=== PATIENT | female | born 1970 | race African-American/Black ===

== ENCOUNTER 2021-05-30 10:48 | Outpatient (REF) | payer MEDICAID, SELFPAY ==
--- NOTE | ~2021-05-30 | XR_ITS ---
EXAMINATION: XR SHOULDER, RIGHT CLINICAL INFORMATION: Pain COMPARISON: Previous x-ray January 2019 TECHNIQUE: AP external rotation, Grashey, scapular Y, and axillary views of the right shoulder. FINDINGS: Bone alignment is normal. No fracture or dislocation is seen. The glenohumeral joint is normal. There is mild arthritis at the acromioclavicular joint with small osteophytes. There are degenerative changes of the greater tuberosity and small adjacent soft tissue calcifications suggestive of calcific tendinitis. XR/XR shoulder RT min 2V IMPRESSION: Mild osteoarthritis at the acromioclavicular joint and soft tissue calcifications adjacent to the greater humeral tuberosity suggestive of calcific tendinitis.
== END 2021-05-30 10:49 | disposition home or self-care (01) ==
LOC: HO.XRAY 10:48
PROVIDERS: PCP Registered Nurse Community Health; Visit Provider Registered Nurse Community Health
DX: M25.511 Pain in right shoulder (principal)
CPT/HCPCS: 73030

== ENCOUNTER 2021-06-18 15:15 | Outpatient (REF) | payer MEDICAID, SELFPAY ==
[2021-06-19 08:48] LABS: CT PCR NOT DETECTED (Not Detect.); NG PCR NOT DETECTED (Not Detect.)
[2021-06-21 17:43] LABS: HPV mRNA E6/E7 rflx Not Detected (Not Detected)
== END 2021-06-18 15:16 | disposition home or self-care (01) ==
LOC: HO.LAB 15:15
PROVIDERS: PCP Registered Nurse Community Health; Visit Provider Obstetrics & Gynecology
DX: Z01.411 Encounter for gynecological examination (general) (routine) with abnormal findings (principal); Z11.3 Encounter for screening for infections with a predominantly sexual mode of transmission; Z11.51 Encounter for screening for human papillomavirus (HPV); R10.2 Pelvic and perineal pain
CPT/HCPCS: 87491; 87591; 87624; 88142; 99212

== ENCOUNTER 2021-06-27 12:35 | Outpatient (REF) | payer MEDICAID, SELFPAY ==
--- NOTE | ~2021-06-27 | MM_ITS ---
EXAMINATION: MM SCREENING DIGITAL BREAST TOMOSYNTHESIS, BILATERAL CLINICAL INFORMATION: Screening. Asymptomatic. The lifetime risk of breast cancer based on the Tyrer-Cuzick Model is 5%. COMPARISON: Mammography: 02/16/2019 (new baseline) TECHNIQUE: Digital breast tomosynthesis is performed in both the craniocaudal and mediolateral oblique views along with computer-aided detection (CAD). Synthesized 2D images are generated from the tomosynthesis. FINDINGS: There are scattered areas of fibroglandular density (ACR BI-RADS breast composition Category b). There are no significant masses, abnormal calcifications, or other abnormalities. Scattered fibroglandular densities are stable. The axilla and skin contours are unremarkable. No significant changes. MM/MM tomosynthesis screening BI IMPRESSION: No mammographic evidence of malignancy. ASSESSMENT: BI-RADS 2: Benign RECOMMENDATION: Routine annual mammography screening. This patient's information was entered into a reminder system with a target due date for their next mammogram.
== END 2021-06-27 12:36 | disposition home or self-care (01) ==
LOC: HO.MAMMO 12:35
PROVIDERS: Visit Provider Registered Nurse Community Health
DX: Z12.31 Encounter for screening mammogram for malignant neoplasm of breast (principal)
CPT/HCPCS: 77063; 77067

== ENCOUNTER → 2021-07-03 12:17 | Outpatient (BNVA) | payer MEDICAID, SELFPAY | PROVIDERS: PCP Registered Nurse Community Health; Referring Provider Registered Nurse Community Health; Visit Provider Nurse Practitioner | DX: Z12.11 Encounter for screening for malignant neoplasm of colon (principal); J45.909 Unspecified asthma, uncomplicated; G47.33 Obstructive sleep apnea (adult) (pediatric); Z83.71 Family history of colonic polyps | CPT/HCPCS: 36415; 80053; 85025; 99202 ==

== ENCOUNTER 2021-07-03 13:49 | Outpatient (REF) | payer MEDICAID, SELFPAY ==
[2021-07-03 14:05] LABS: MANUAL DIFF FLAG NO
[2021-07-03 14:32] LABS: Basophils Absolute Auto 0.1 X10*3/uL (0.0-0.2); Basophils Percent Auto 0.9 % (0-2); Eosinophils Absolute Auto 0.1 X10*3/uL (0.0-0.4); Eosinophils Percent Auto 1.1 % (0-4); Hemoglobin 15.4 g/dl (12.0-16.0); Imm Gran Abs Auto 0.03 X10*3/uL (0.00-0.03); Imm Gran Pct Auto 0.3 % (0.0-0.4); Lymphocytes Absolute Auto 2.5 X10*3/uL (1.2-4.9); Lymphocytes Percent Auto 26.4 % (20-40); Mean Corpuscular HGB Conc 33.5 g/dl (31.0-35.0); Mean Corpuscular Hemoglobin 28.2 pg (27.0-33.0); Mean Corpuscular Volume 84.2 fL (80-98); Mean Platelet Volume 9.6 fL (9.4-12.3); Monocytes Absolute Auto 0.6 X10*3/uL (0.1-1.2); Monocytes Percent Auto 6.2 % (2-11); Neutrophils Absolute Auto 6.1 X10*3/uL (2.0-8.3); Neutrophils Percent Auto 65.1 % (45-73); Platelet Count 322 X10*3/uL (160-400); Red Blood Count 5.46 X10*6/uL (4.20-5.50); Red Cell Distribution Width 16.7 % (11.0-16.0); White Blood Count 9.4 X10*3/uL (4.8-10.8)
[2021-07-03 14:56] LABS: Alanine Aminotransferase 8 U/L (0-31); Albumin Level 4.6 g/dL (3.5-5.0); Alkaline Phosphatase 77 U/L (39-117); Anion Gap 15 (12-20); Aspartate Amino Transferase 13 U/L (5-31); Bilirubin Total 0.4 mg/dL (0.0-1.0); Blood Urea Nitrogen 10 mg/dL (9-16); Calcium 9.3 mg/dL (8.4-10.2); Carbon Dioxide 27 mmol/L (22-29); Chloride 105 mmol/L (96-108); Estimated Glomerular Filt Rate > 60; Glucose Random 86 mg/dL (60-115); Sodium 142 mmol/L (135-145); Total Protein 7.5 g/dL (6.5-8.0)
== END 2021-07-03 13:50 | disposition home or self-care (01) ==
LOC: HO.LAB 13:49
PROVIDERS: PCP Registered Nurse Community Health; Visit Provider Nurse Practitioner
DX: Z12.11 Encounter for screening for malignant neoplasm of colon (principal)
CPT/HCPCS: 36415; 80053; 85025

== ENCOUNTER 2021-07-04 15:34 | Outpatient (REF) | payer MEDICAID, SELFPAY ==
--- NOTE | ~2021-07-04 | US_ITS ---
EXAMINATION: US PELVIS CLINICAL INFORMATION: Pelvic and perineal pain. COMPARISON: Previous ultrasound 12/29/2019 TECHNIQUE: Ultrasound of the pelvis is performed using both transabdominal and transvaginal transducers along with Doppler. Transvaginal imaging is performed due to inadequate visualization transabdominally. The transvaginal exam is limited due to position of the uterus and ovaries. FINDINGS: Uterus: The uterus is anteverted, retroflexed and measures 12.6 x 4.8 x 5.0 cm. The uterus is homogeneous in echotexture. There is a hypoechoic lesion in the right body of uterus measuring 3.9 x 3.7 x 2.9 cm, likely fibroid. Previously it measured 5.4 x 4.6 x 5.0 cm. The double wall endometrial thickness is not visualized. There are small anechoic cysts seen in the cervix. Adnexa: Both ovaries are visualized. There is normal color flow to the adnexa. There is no ovarian torsion. There is no pelvic ascites or fluid collection. Right ovary measures 2.6 x 1.5 x 2.7 cm and volume 5.5 mL. The ovary appears unremarkable. Previously right ovary measured 2.7 x 1.2 x 2.2 cm. Left ovary measures 2.6 x 1.6 x 3.2 and volume 7.0 mL. The ovary appears unremarkable. Previously it measured 2.5 x 1.3 x 2.6 cm. US/US pelvic and transvaginal IMPRESSION: Unremarkable ovaries. Small nabothian cysts in the cervix. Solitary uterine fibroid, slightly smaller than previous study.
== END 2021-07-04 15:35 | disposition home or self-care (01) ==
LOC: HO.US 15:34
PROVIDERS: PCP Registered Nurse Community Health; Visit Provider Obstetrics & Gynecology
DX: R10.2 Pelvic and perineal pain (principal)
CPT/HCPCS: 76830; 76856

== ENCOUNTER 2021-07-25 13:00 | Outpatient (RCR) | payer MEDICAID, SELFPAY | END 2021-07-25 16:14 | disposition home or self-care (01) | LOC: HO.PTCHIC 13:00 | PROVIDERS: PCP Registered Nurse Community Health; Visit Provider Registered Nurse Community Health | DX: M79.672 Pain in left foot (principal) | CPT/HCPCS: 97110; 97140; 97150; 97162 ==

== ENCOUNTER 2021-09-10 08:08 | Day surgery (SDC) | payer MEDICAID, SELFPAY ==
[2021-09-04 14:05] VITALS: BMI 34.7
--- NOTE | 2021-09-07 09:08 | HO.ANESPROP2 ---
Documented by User: Keyanna Booth NP 09/07/21 09:09 HPI - Anesthesia Eval Consult details Narrative: 51yo F for Colonoscopy PMFSH Active Problems Active Problems: All Active Problems (Updated 09/04/21 @ 14:04 by Moni Robin RN) Well woman exam (Acute) Pelvic pain (Acute) Colon cancer screening (Acute) CATHERINE (obstructive sleep apnea) (Acute) Migraines (Acute) Family history of polyps in the colon (Acute) Pre-diabetes (Acute) GERD (gastroesophageal reflux disease) (Acute) Peripheral neuropathy (Acute) Primary fibromyalgia syndrome (Acute) Peripheral vascular disease (Acute) Depression with anxiety (Acute) Asthma (Acute) Past Medical History Medical History (Updated 09/10/21 @ 08:34 by Tiffanie Fernandez RN) Asthma Fibromyalgia Foot fracture GERD (gastroesophageal reflux disease) Hypothyroidism Migraine Pre-diabetes Sleep apnea Family History Family History (Updated 07/03/21 @ 12:59 by Anisha Stock CMA) Mother Hypothyroidism HTN (hypertension) Diabetes Father Esophagus cancer Brother Asthma Surgical History Surgical History H/O shoulder surgery H/O umbilical hernia repair Hx of section Social History Social History (Updated 07/03/21 @ 13:00 by Anisha Stock CMA) Household Members: Family Housing: Apartment Alcohol intake: never Patient Tobacco Use Status: Current someday Tobacco user Tobacco use type: Cigarette Cigarettes Per Day: 20 Years Smoked: 25 Advance Directives: No (unknown) Advance Directives Information Provided: Yes Advance Directives on File: No Meds Allergies Allergy/AdvReac Type Severity Reaction Status Date / Time No Known Allergies Allergy Verified 07/03/21 12:56 [No Known Allergies*] Home Medications Medication Instructions Recorded Confirmed Last Taken Type albuterol sulfate 90 mcg/actuation 2 puff PO Q4-6H PRN 06/18/21 Unknown History aerosol inhaler (ProAir HFA) duloxetine 60 mg capsule,delayed 60 mg PO DAILY 06/18/21 Unknown History release fluticasone propionate 110 1 puff PO BID 06/18/21 Unknown History mcg/actuation HFA aerosol inhaler (Flovent HFA) gabapentin 600 mg tablet 600 mg PO DAILY 06/18/21 Unknown History ibuprofen 800 mg tablet 800 mg PO TID 06/18/21 Unknown History levothyroxine 88 mcg tablet 88 mcg PO DAILY 06/18/21 Unknown History naproxen 500 mg tablet 500 mg PO BID PRN 06/18/21 Unknown History nicotine (polacrilex) 2 mg gum mg PO 06/18/21 Unknown History omeprazole 20 mg capsule,delayed 20 mg PO DAILY 06/18/21 Unknown History release topiramate 25 mg tablet 25 mg PO DAILY 06/18/21 Unknown History Exam Exam Date and Time: September 07, 2021 0908 Height,Weight and Vital Signs: Height 5 ft 2 in Weight 86.183 kg Pertinent Lab Results Pertinent Lab Results: Laboratory Tests 07/03/21 07/03/21 14:03 14:03 WBC 9.4 Hgb 15.4 Hct 46.0 Plt Count 322 Sodium 142 Potassium 5.0 Chloride 105 Carbon Dioxide 27 BUN 10 Creatinine 0.90 Assessment and Plan Assessment Anesthesia Assessment: Chart Reviewed Documented by User: Maxine Craig MD 09/10/21 09:13 [facility] Past Medical History Medical History (Updated 09/10/21 @ 08:34 by Tiffanie Fernandez RN) Asthma Fibromyalgia Foot fracture GERD (gastroesophageal reflux disease) Hypothyroidism Migraine Pre-diabetes Sleep apnea Family History Family History (Updated 07/03/21 @ 12:59 by Anisha Stock CMA) Mother Hypothyroidism HTN (hypertension) Diabetes Father Esophagus cancer Brother Asthma Family history of problems with anesthesia: No Surgical History Surgical History H/O shoulder surgery H/O umbilical hernia repair Hx of section History of Problems with Anesthesia: No Social History Social History (Updated 07/03/21 @ 13:00 by Anisha Stock CMA) Household Members: Family Housing: Apartment Alcohol intake: never Patient Tobacco Use Status: Current someday Tobacco user Tobacco use type: Cigarette Cigarettes Per Day: 20 Years Smoked: 25 Advance Directives: No (unknown) Advance Directives Information Provided: Yes Advance Directives on File: No Meds Allergies Allergy/AdvReac Type Severity Reaction Status Date / Time No Known Allergies Allergy Verified 07/03/21 12:56 [No Known Allergies*] Home Medications Medication Instructions Recorded Confirmed Last Taken Type albuterol sulfate 90 mcg/actuation 2 puff PO Q4-6H PRN 06/18/21 Unknown History aerosol inhaler (ProAir HFA) duloxetine 60 mg capsule,delayed 60 mg PO DAILY 06/18/21 Unknown History release fluticasone propionate 110 1 puff PO BID 06/18/21 Unknown History mcg/actuation HFA aerosol inhaler (Flovent HFA) gabapentin 600 mg tablet 600 mg PO DAILY 06/18/21 Unknown History ibuprofen 800 mg tablet 800 mg PO TID 06/18/21 Unknown History levothyroxine 88 mcg tablet 88 mcg PO DAILY 06/18/21 Unknown History naproxen 500 mg tablet 500 mg PO BID PRN 06/18/21 Unknown History nicotine (polacrilex) 2 mg gum mg PO 06/18/21 Unknown History omeprazole 20 mg capsule,delayed 20 mg PO DAILY 06/18/21 Unknown History release topiramate 25 mg tablet 25 mg PO DAILY 06/18/21 Unknown History Exam Airway Mallampati Class: II (Missing multiple teeth on bottom) TM Dist: >3cm Neck ROM: Full Denture: Upper Heart: rrr Lungs: cta Assessment and Plan Assessment Anesthesia Assessment: Anesthesia Plan Discussed and Chart Reviewed Final Anesthetic Review Family History of Problems with Anesthesia: No History of Problems with Anesthesia: No NPO: Yes ASA Class: III Final Preanesthetic Review: No Changes in Pt Med Stat, Meds/Allgs Chart Reviewed and Consent Obtained/Reviewed Patient Risk: Intermediate Procedure Risk: Intermediate Anesthetic Plan Anesthetic Plan: MAC: Disposition: Standard PACU
[2021-09-10 08:58] VITALS: BP 113/61; PULSE 70; RESP 16; TEMP 37.3; O2SAT 97
--- NOTE | 2021-09-10 09:05 | P.HPSUR_ITS ---
Pre-Procedural Eval Section A Date of Service: 09/10/21 Section B Chief Complaint: hx of Colon Polyps, Screening Details of Present Illness: FH of colon polyps in mother Relevant Family History (Specify if Yes): Yes Relevant Social History: Tobacco Use Present Medications: see Short Stay Collaborative assessment Medical History: Significant History (Asthma Foot fracture GERD (ga stroesophageal reflux disease) Hypothyroidism Migraine Pre-diabetes Sleep apnea) History of Previous Operations: Relevant previous surgery/procedure and date(s) (H/O shoulder surgery H/O umbilical hernia repair Hx of section) Allergies: Allergies Allergy/AdvReac Type Severity Reaction Status Date / Time No Known Allergies Allergy Verified 07/03/21 12:56 [No Known Allergies*] Review of Systems Sugical H&P ROS: Negative: Constitution, Cardiovascular, Respiratory, Neurological, Psychiatric, Hem-Onc, Allergic/Immunologic, Gastrointestinal, Genitourinary, Musculoskeletal, Integumentary, Endocrine and Eyes/Ears/Nose/Throat Exam Surgical H&P Exam: Normal: HEENT, Normal: Heart, Normal: Lungs, Normal: Extremities, Normal: Abdomen, Normal: Skin and Normal: Neurological Plan Diagnosis/Plan: Unchanged I have reviewed the history and physical and performed a pertinent physical examination on my patient. No changes have occurred unless specified.
[2021-09-10] MEDS: Lactated Ringers 1,000 ML 100 ML IVCONT (09:10)
--- NOTE | 2021-09-10 09:15 | PM.OP ---
Brief Operative Note Date of Service: 09/10/21 Pre-op diagnosis: colonoscopy screening Post-op diagnosis: same Procedure: see op note Surgeon: Justin Bartlett MD Anesthesia: MAC Was an [employer] used for this Procedure?: No Estimated blood loss (mL): 0 Condition: stable Disposition: PACU
--- NOTE | 2021-09-10 09:16 | W.PM.OPN ---
Operative Note Operative Note Date of Service: 09/10/21 Narrative: Operative Information Procedure Description: Colonoscopy COLONOSCOPY Instrument: Olympus variable stiffness pediatric scope 190L Colonoscopy Monitoring: Vital signs and clinical assessment, continuous EKG monitoring, Pulse oximetry, Carbon Dioxide monitoring and blood pressure monitoring were done throughout the procedure. Colon withdrawal time was 15 minutes. Procedure: The patient was placed in the left lateral decubitis position and pre-procedure medications were administered. After a digital rectal examination of the ano-rectum, the video colonoscope was inserted into the rectum and advanced through the colon to the cecum/TI. The colonoscope was slowly withdrawn in a retrograde panoramic fashion and the colon mucosa was carefully examined including a retroflexed view of the rectum. Findings and interventions are described below. Procedure Difficulty:moderate due to looping Findings: Terminal Ileum-unable to deeply intubate due to looping, superficially looked normal Cecum:normal Ascending Colon: normal Transverse Colon -normal Descending Colon:normal Sigmoid Colon: normal Rectum: Retroflexion with small internal hemorrhoids, grade I, x 3 sessile polpys 7-9 mm removed with forceps Anorectum - normal Colon preparation: Graham Bowel Preparation Scale Right colon; 2 Transverse colon: 3 Left colon; 2 (0 = Unprepared colon segment with mucosa not seen due to solid stool that cannot be cleared. 1 = Portion of mucosa of the colon segment seen, but other areas of the colon segment not well seen due to staining, residual stool and/or opaque liquid. 2 = Minor amount of residual staining, small fragments of stool and/or opaque liquid, but mucosa of colon segment seen well. 3 = Entire mucosa of colon segment seen well with no residual staining, small fragments of stool or opaque liquid) Impression and Post Procedure Diagnosis: polyps internal hemorrhoids Plan: High fiber diet leaflet Avoid straining at stool, epsom salts and sitz bath, anusol supps or cream Repeat Colonoscopy in 5 years due to polyps and FH of polyps or earlier if clinically indicated Above findings were reviewed with the patient and relevant handouts were provided if indicated.
[2021-09-10 09:51] VITALS: BP 89/60; PULSE 75; RESP 16; TEMP 36.6; O2SAT 96
[2021-09-10 10:08] VITALS: BP 107/82; PULSE 63; RESP 18; TEMP 36.6; O2SAT 98
== END 2021-09-10 10:22 | disposition home or self-care (01) ==
PROVIDERS: PCP Registered Nurse Community Health; Visit Provider Internal Medicine Gastroenterology
PROC: 0DJD8ZZ Inspection of Lower Intestinal Tract, Via Natural or Artificial Opening Endoscopic (ICD-10-PCS; CPT 45378; principal; 2021-09-10 09:20)
DX: Z12.11 Encounter for screening for malignant neoplasm of colon (principal); Z83.71 Family history of colonic polyps; K62.1 Rectal polyp; K64.0 First degree hemorrhoids; K59.04 Chronic idiopathic constipation; K21.9 Gastro-esophageal reflux disease without esophagitis; G47.33 Obstructive sleep apnea (adult) (pediatric); R73.03 Prediabetes; E03.9 Hypothyroidism, unspecified; M79.7 Fibromyalgia; J45.909 Unspecified asthma, uncomplicated; Z88.8 Allergy status to other drugs, medicaments and biological substances; F17.210 Nicotine dependence, cigarettes, uncomplicated
CPT/HCPCS: 45380; 88305

== ENCOUNTER → 2021-10-11 11:44 | Outpatient (BNVA) | payer MEDICAID, SELFPAY | PROVIDERS: PCP Registered Nurse Community Health; Referring Provider Registered Nurse Community Health; Visit Provider Nurse Practitioner | DX: Z12.11 Encounter for screening for malignant neoplasm of colon (principal) | CPT/HCPCS: 99212 ==

== ENCOUNTER 2022-03-28 15:00 | Outpatient (RCR) | payer MEDICAID, SELFPAY | END 2022-03-28 15:48 | disposition home or self-care (01) | LOC: HO.PTCHIC 15:00 | PROVIDERS: PCP Registered Nurse Community Health; Visit Provider Nurse Practitioner Family | DX: M54.16 Radiculopathy, lumbar region (principal) | CPT/HCPCS: 97110; 97140; 97161 ==

== ENCOUNTER 2022-07-10 14:32 | Outpatient (REF) | payer MEDICAID, SELFPAY ==
--- NOTE | ~2022-07-10 | MM_ITS ---
EXAMINATION: MM SCREENING DIGITAL BREAST TOMOSYNTHESIS, BILATERAL CLINICAL INFORMATION: Screening. Asymptomatic. The lifetime risk of breast cancer based on the Tyrer-Cuzick Model is 7%. COMPARISON: Mammography: 06/27/2021, 02/16/2019 (new baseline) TECHNIQUE: Digital breast tomosynthesis is performed in both the craniocaudal and mediolateral oblique views along with computer-aided detection (CAD). Synthesized 2D images are generated from the tomosynthesis. Additional left CC view is provided. FINDINGS: There are scattered areas of fibroglandular density (ACR BI-RADS breast composition Category b). There are no significant masses, abnormal calcifications, or other abnormalities. Parenchymal pattern is similar to prior studies. There is no developing density or architectural abnormality. The axilla and skin contours are unremarkable. No significant changes. MM/MM tomosynthesis screening BI IMPRESSION: No mammographic evidence of malignancy. ASSESSMENT: BI-RADS 2: Benign RECOMMENDATION: Routine annual mammography screening. This patient's information was entered into a reminder system with a target due date for their next mammogram.
== END 2022-07-10 14:33 | disposition home or self-care (01) ==
LOC: HO.MAMMO 14:32
PROVIDERS: PCP Registered Nurse; Visit Provider Registered Nurse
DX: Z12.31 Encounter for screening mammogram for malignant neoplasm of breast (principal)
CPT/HCPCS: 77063; 77067

== ENCOUNTER 2022-09-04 15:29 | Outpatient (REF) | payer MEDICAID, SELFPAY ==
[2022-09-05 06:34] LABS: CT PCR NOT DETECTED (Not Detect.); NG PCR NOT DETECTED (Not Detect.)
[2022-09-05 09:35] LABS: BV Int Neg Control Negative (Negative); BV Int Pos Control Positive (Positive)
== END 2022-09-04 15:30 | disposition home or self-care (01) ==
LOC: HO.LNP 15:29
PROVIDERS: Visit Provider Advanced Practice Midwife
DX: Z01.419 Encounter for gynecological examination (general) (routine) without abnormal findings (principal); R10.2 Pelvic and perineal pain; Z86.018 Personal history of other benign neoplasm
CPT/HCPCS: 87480; 87491; 87510; 87591; 87660

== ENCOUNTER 2022-10-04 12:39 | Outpatient (REF) | payer MEDICAID, SELFPAY ==
--- NOTE | ~2022-10-04 | US_ITS ---
EXAMINATION: US PELVIS CLINICAL INFORMATION: Pelvic and perineal pain. Last menstrual period 5 years ago. COMPARISON: 07/04/2021 TECHNIQUE: Ultrasound of the pelvis is performed using both transabdominal and transvaginal transducers along with Doppler. Transvaginal imaging is performed due to inadequate visualization transabdominally. FINDINGS: The uterus measures 14.0 x 4.6 x 6.0 cm. Posterior 3.9 x 4.4 x 4.6 cm fibroid previously measured 3.9 x 3.7 x 3.9 cm. The endometrium is not visualized due to the large fibroid. Multiple nabothian cysts identified in the cervix. The fibroid and bilateral ovaries were better visualized on transabdominal images. No significant free fluid. Right ovary measures 2.8 x 1.9 x 2.0 cm, volume 5.6 mL. Left ovary measures 3.2 x 1.7 x 2.3 cm, volume 6.5 mL. Bilateral ovaries are grossly unremarkable. US/US pelvic and transvaginal IMPRESSION: 1. Posterior 3.9 cm uterine fibroid. 2. Endometrium not visualized due to fibroid. 3. Unremarkable bilateral ovaries. 4. Nabothian cysts identified in the cervix.
== END 2022-10-04 12:40 | disposition home or self-care (01) ==
LOC: HO.US 12:39
PROVIDERS: PCP Registered Nurse; Visit Provider Advanced Practice Midwife
DX: R10.2 Pelvic and perineal pain (principal); Z86.018 Personal history of other benign neoplasm
CPT/HCPCS: 76830; 76856

== ENCOUNTER → 2022-10-15 12:57 | Outpatient (BNVA) | payer MEDICAID, SELFPAY | PROVIDERS: PCP Registered Nurse; Visit Provider Nurse Practitioner Family | DX: M48.062 Spinal stenosis, lumbar region with neurogenic claudication (principal); M47.26 Other spondylosis with radiculopathy, lumbar region; G62.9 Polyneuropathy, unspecified; M79.7 Fibromyalgia; M62.838 Other muscle spasm; G56.03 Carpal tunnel syndrome, bilateral upper limbs; M79.641 Pain in right hand; M79.642 Pain in left hand | CPT/HCPCS: 99202 ==

== ENCOUNTER → 2022-11-05 12:35 | Outpatient (BNVA) | payer MEDICAID, SELFPAY | PROVIDERS: PCP Registered Nurse; Visit Provider Orthopaedic Surgery | DX: R20.0 Anesthesia of skin (principal); R20.2 Paresthesia of skin; M79.7 Fibromyalgia; G62.9 Polyneuropathy, unspecified; R73.03 Prediabetes | CPT/HCPCS: 99202 ==

== ENCOUNTER 2022-11-06 06:03 | Outpatient (REF) | payer MEDICAID, SELFPAY ==
--- NOTE | ~2022-11-06 | FL_ITS ---
EXAMINATION: XR FLUOROSCOPY WITH IMAGES CLINICAL INFORMATION: Radiculopathy, lumbar region. COMPARISON: None. TECHNIQUE: Fluoroscopy Supervised By: Dr. Jg Hager. Fluoroscopy Time: 0.1 minutes. Cumulative Dose: 8.31 mGy. DAP: 0.967 Gycm2. Images: 2. FINDINGS: Two images demonstrate needle overlying the dorsal aspect of the L4-L5 level. FL/FL guidance in treatment room IMPRESSION: Intraoperative fluoroscopy for pain management procedure.
== END 2022-11-06 06:04 | disposition home or self-care (01) ==
LOC: CF 06:03
PROVIDERS: Visit Provider Internal Medicine
DX: M54.16 Radiculopathy, lumbar region (principal)
CPT/HCPCS: 62323; J1040; Q9965

== ENCOUNTER → 2022-11-28 11:01 | Outpatient (BNVA) | payer MEDICAID, SELFPAY | PROVIDERS: PCP Registered Nurse; Visit Provider Advanced Practice Midwife | DX: D25.9 Leiomyoma of uterus, unspecified (principal); N95.1 Menopausal and female climacteric states | CPT/HCPCS: 99212 ==

== ENCOUNTER → 2022-12-05 09:46 | Outpatient (BNVA) | payer MEDICAID, SELFPAY | PROVIDERS: PCP Registered Nurse; Visit Provider Nurse Practitioner Family | DX: M51.36 Other intervertebral disc degeneration, lumbar region (principal); M47.26 Other spondylosis with radiculopathy, lumbar region; M79.7 Fibromyalgia; M62.838 Other muscle spasm | CPT/HCPCS: 99212 ==

== ENCOUNTER 2022-12-27 14:00 | Outpatient (RCR) | payer MEDICARE, MEDICAID, SELFPAY | END 2023-01-06 08:27 | disposition home or self-care (01) | LOC: HO.PTCHIC 14:00 | PROVIDERS: PCP Registered Nurse; Visit Provider Registered Nurse | DX: M54.41 Lumbago with sciatica, right side (principal); M54.9 Dorsalgia, unspecified | CPT/HCPCS: 97110; 97161 ==

== ENCOUNTER 2023-01-10 10:11 | Outpatient (REF) | payer MEDICARE, MEDICAID, SELFPAY | END 2023-01-10 10:12 | disposition home or self-care (01) | LOC: HO.LAB 10:11 | PROVIDERS: Visit Provider Advanced Practice Midwife | DX: Z13.89 Encounter for screening for other disorder (principal) | CPT/HCPCS: 36415; 83001 ==

== ENCOUNTER 2023-01-22 13:00 | Outpatient (REF) | payer MEDICARE, MEDICAID, SELFPAY ==
--- NOTE | 2023-01-22 09:30 | EMG_ITS ---
Please see scanned EMG / Nerve Conduction Report. MTDD
== END 2023-01-22 13:01 | disposition home or self-care (01) ==
LOC: HO.NEURO 13:00
PROVIDERS: PCP Registered Nurse; Visit Provider Orthopaedic Surgery
DX: R20.0 Anesthesia of skin (principal); R20.2 Paresthesia of skin
CPT/HCPCS: 95885; 95913

== ENCOUNTER → 2023-03-07 09:39 | Outpatient (BNVA) | payer MEDICARE, MEDICAID, SELFPAY | PROVIDERS: PCP Registered Nurse; Visit Provider Internal Medicine | DX: M54.16 Radiculopathy, lumbar region (principal) | CPT/HCPCS: 99212 ==

== ENCOUNTER → 2023-03-19 12:36 | Outpatient (BNVA) | payer MEDICARE, MEDICAID, SELFPAY | PROVIDERS: PCP Registered Nurse; Visit Provider Orthopaedic Surgery | DX: R20.0 Anesthesia of skin (principal); R20.2 Paresthesia of skin; M79.641 Pain in right hand; M79.642 Pain in left hand | CPT/HCPCS: 99202 ==

== ENCOUNTER → 2023-04-29 13:36 | Outpatient (BNVA) | payer MEDICARE, MEDICAID, SELFPAY | PROVIDERS: PCP Registered Nurse; Referring Provider Internal Medicine; Visit Provider Physician Assistant ==

== ENCOUNTER 2023-08-04 12:40 | Outpatient (REF) | payer OTHER, SELFPAY ==
[2023-08-04 14:10] LABS: Rheumatoid Factor < 13.0 IU/mL (<15.0)
[2023-08-04 14:13] LABS: C Reactive Protein 0.55 mg/dL (< or = 0.50)
[2023-08-04 14:24] LABS: Erythrocyte Sedimentation Rate 14 MM/HR (0-20)
[2023-08-10 14:53] LABS: Anti Nuclear Antibody Screen POSITIVE (NEGATIVE)
== END 2023-08-04 12:41 | disposition home or self-care (01) ==
LOC: HO.HHCL 12:40
PROVIDERS: Visit Provider Registered Nurse
DX: M25.50 Pain in unspecified joint (principal)
CPT/HCPCS: 36415; 85652; 86038; 86039; 86140; 86431

== ENCOUNTER 2023-09-08 12:51 | Outpatient (AMB) | payer MEDICARE, MEDICAID, SELFPAY ==
--- NOTE | 2023-09-08 12:52 | A.OFFVIS_ITS ---
Intake Vital Signs 09/08/23 12:54 Height 5 ft 2 in Weight 214 lb 1.102 oz BMI 39.1 BP 110/84 Blood Pressure Location Rt brachial Position Sitting Pulse 81 Pulse Source Pulse Oximeter Intake Visit Reasons: Positive REBECCA Intake Note: New patient externally referred presents today for +REBECCA. Previously seen a senior security architect in [place]. Puller Over Required: Yes Puller Over Language: Consumer Product Advisor Name: Sathya [id number] Information Interpreted: non-clinical & clinical Accompanied by: Self / Same As Patient Allergies tizanidine Allergy (Intermediate, Verified 09/08/23 13:02) Swelling HPI HPI Comments History of Present Illness Details Mrs. Mendoza, 53-year-old female referred by her PCP, presents today for evaluation of polyarthralgia and positive REBECCA. She has a history of hypothyroid, Pre diabetes, fibromyalgia and is a smoker with chronic low back pain. The patient reports that she has pain all over her body especially to back and knees for many years. Her the most significant area of pain is her lower back for which she is seeing Pain Management and receives injections. This has affected her walking and has caused her to fall. Per patient she was followed by rheumatology in [place] who gave her of splint for her bilateral wrist due to carpal tunnel and was also told that she had osteoarthritis in her joint. She reports that she takes gabapentin and diclofenac potassium with partial relief. She has since had Bilateral CTS. PRIOR VISITs with pain management : Past Procedures: 11/06/22: Left L4-L5 parasagittal interl aminar LANIE-30% pain relief Patient is a pleasant 52 year old [place] speaking female with a history of fibromyalgia and peripheral neuropathy present today with lower back pain and with pain all over her body. Reports chronic back pain for 15 years that has been worsening for the past 4 months. Denies any recent trauma, injury or falls. Lower back pain presents as axial but also radiates to the left lower extremity laterally and posteriorly with numbness and tingling in both feet and both hands. The pain is constant and is described as pinching, cramping, crushing, dull, sore, hurting, aching, heavy, tiring, exhausting, sharp, cutting, lacerating, hot burning, scalding, searing, tingling, stinging, tight, squeezing and tearing. Pain interferes with her daily activities, walking, standing, sitting, sleeping or social activities. Reports left lower extremity weakness and increased left leg pain with walking or bending forward. Denies previous spine surgery but has tried injections and those were without effect. Patient completed physical therapy in January 2022 without improvement in her symptoms. Lumbar spine MRI on 01/03/22 reviewed and are noted for moderate stenosis and left neuroforaminal narrowing at L4-L5 with ligament hypertrophy and mild Modic 2 endplate changes at L4-L5. Patient has been taking gabapentin and diclofenac potassium with partial relief. Reports swelling reaction with tizanidine. Patient denies any fever, chills, weight changes, dizziness, visual disturbances, bowel or bladder incontinence, or saddle anesthesia. Patient requests Hand specialist for bilateral carpal tunnel syndrome, right worse than left and has previously managed her bilateral hand pain with NSAIDs, OT/PT, and wrist immobilizers 5 years ago in [place]. She also reports bilateral reconstructive shoulder surgery and has residual neck pain and shoulder pain. Patient reports difficulty with opening or handling jars. [facility] Medical History (Updated 09/08/23 @ 13:26 by AMISHA Guerrier) Elevated sed rate REBECCA positive Pain in joint involving multiple sites Neuropathy, peripheral Fibromyalgia Migraine Pre-diabetes Sleep apnea GERD (gastroesophageal reflux disease) Foot fracture Asthma Hypothyroidism Surgical History H/O umbilical hernia repair H/O shoulder surgery Hx of section Family History Mother Hypothyroidism HTN (hypertension) Diabetes Father Esophagus cancer Brother Asthma Social History Household Members: Family Housing: Apartment Alcohol intake: never Patient Tobacco Use Status: Current someday Tobacco user Tobacco use type: Cigarette Cigarettes Per Day: 20 Years Smoked: 25 Current occupational status: disabled Current occupation: rt hand Female Reproductive History Menstrual Age of Menarche: 8 Review of Systems Const All systems reviewed & are unremarkable except as noted in HPI and below Physical Exam Vital Signs: Last Vital Signs Pulse 81 09/08/23 12:54 BP 110/84 09/08/23 12:54 BMI result Body Mass Index 39.1 APPEARANCE: Patient in no acute distress, groomed nourished obese EYES no redness, pupils equal and reactive to light, eyelids normal EARS:? External ear normal, canal clear and tympanic membrane normal. NOSE/SINUS:? Airflow through both nares, no nasal discharge, no bleeding Mouth/THROAT:? Oral mucosa moist, no ulcerations. Poor dentition NECK:? No thyromegaly or masses, no adenopathy, trachea midline. HEART:? Regular rhythm, S1-S2 heard, no murmurs, rubs or gallops. LUNG:? Clear to percussion and auscultation ABD:? Large abdomen. Normal bowel sounds, no organomegaly, masses or tenderness. EXTREMITIES:? No edema, no calf tenderness, normal peripheral pulses. NEURO:? Oriented and alert x3.? No focal weakness.? Reflexes symmetric.? SKIN:? There are no skin lesions evident. No objective signs of Raynaud's phenomenon. JOINT EXAM: Cervical Spine:.? Full range of motion without pain; no tenderness. Thoracic Spine:.? No scoliosis.? No tenderness on palpation. Lumbar Spine:.? Alignment normal.? Full range of motion without pain. tenderness. Chest Wall:.? No tenderness, swelling, increased warmth or erythema. Hands:.? Normal pain-free range of motion without tenderness, swelling, increased warmth or erythema. Able to make a full fist and has a good millwright helper str ength. Wrists:.? Normal pain-free range of motion without tenderness, swelling, increased warmth or erythema. -negative tinnels and phalens Elbows:. Normal pain-free range of motion without tenderness, swelling, increased warmth or erythema. Shoulders:.?? Full range of motion without pain. No tenderness, weakness, swelling, increased warmth or erythema. Hip bursa:.?Mild tenderness. Knees:.?? Normal pain-free range of motion with mild tenderness to medial joint line, but no swelling, increased warmth or erythema.? There is no effusion or crepitation Ankles:.? Normal pain-free range of motion without tenderness, swelling, increased warmth or erythema. Feet:.? Normal pain-free range of motion without tenderness, swelling, increased warmth or erythema. Tender points:? No tenderness to digital palpation at the occiput, trapezius, second rib, lateral epicondyle, knees, greater trochanter and gluteal area bilat eralacyy. Results Reviewed Results Reviewed: 05/30/21EXAMINATION: XR SHOULDER, RIGHT CLINICAL INFORMATION: Pain COMPARISON: Previous x-ray January 2019 TECHNIQUE: AP external rotation, Grashey, scapular Y, and axillary views of the right shoulder. FINDINGS: Bone alignment is normal. No fracture or dislocation is seen. The glenohumeral joint is normal. There is mild arthritis at the acromioclavicular joint with small osteophytes. There are degenerative changes of the greater tuberosity and small adjacent soft tissue calcifications suggestive of calcific tendinitis. XR/XR shoulder RT min 2V IMPRESSION: Mild osteoarthritis at the acromioclavicular joint and soft tissue calcifications adjacent to the greater humeral tuberosity suggestive of calcific tendinitis. Assessment & Plan Assessment & Plan (1) REBECCA positive: Code(s): R76.8 - Other specified abnormal immunological findings in serum (2) Pain in joint involving multiple sites: Code(s): M25.50 - Pain in unspecified joint (3) Lumbar back pain with radiculopathy affecting left lower extremity: Code(s): M54.16 - Radiculopathy, lumbar region (4) Shoulder pain, bilateral: Code(s): M25.511 - Pain in right shoulder; M25.512 - Pain in left shoulder Qualifiers: Chronicity: chronic Qualified Code(s): M25.511 - Pain in right shoulder; M25.512 - Pain in left shoulder; G89.29 - Other chronic pain Plan #+REBECCA/Joint Pain:Miss Mendoza is a 53-year-old female here for evaluation of joint pain with positive REBECCA. After careful initial review of patient's medical records, diagnostics and a physical examination I do not think there is an underlying autoimmune or inflammatory disease process to her joint pain. Admittedly she has a positive REBECCA 1:80 but all extractable antigens are negative. In addition patient denies relevant features of an inflammatory arthritis and non in observed on PE. She denies erythematous, warm, swollen joints, (see HPI). She reports that she was being seen by senior security architect in [place] for osteoarthritis and fibromyalgia. She can continue on medications as prescribed by her PCP for these conditions - Cymbalta, naproxen, Voltaren gel, Robaxin and gabapentin. Will evaluate further with labs and Xrays. Patient complains of hand pain could be onset of OA. #Lumbar Pain: MRI 12/2021 shows Disc herniation and Stenosis. She is being seen by Pain Management and has received injections to lower back 11/2022. #Shoulder Pain: According to Past imaging, there is moderate calcific tendinitis to shoulders. She will be seeing Ortho for injections per patient. Orders: Orders Anti Extractable Nuclear Ag 09/08/23 M25.50 - Pain in unspecified joint, R70.0 - Elevated erythrocyte sedimentation rate, R76.8 - Other specified abnormal immunological findings in serum Sjogren's Antibodies 09/08/23 M25.50 - Pain in unspecified joint, R70.0 - Elevated erythrocyte sedimentation rate, R76.8 - Other specified abnormal immunological findings in serum Complete Blood Count Auto Diff 09/08/23 M25.50 - Pain in unspecified joint, R70.0 - Elevated erythrocyte sedimentation rate, R76.8 - Other specified abnormal immunological findings in serum Comprehensive Met. Panel 09/08/23 M25.50 - Pain in unspecified joint, R70.0 - Elevated erythrocyte sedimentation rate, R76.8 - Other specified abnormal immunological findings in serum XR hand LT min 3V 09/08/23 M25.50 - Pain in unspecified joint, R70.0 - Elevated erythrocyte sedimentation rate, R76.8 - Other specified abnormal immunological findings in serum XR hand RT min 3V 09/08/23 M25.50 - Pain in unspecified joint, R70.0 - Elevated erythrocyte sedimentation rate, R76.8 - Other specified abnormal immunological findings in serum Erythrocyte Sedimentation Rate 09/08/23 M25.50 - Pain in unspecified joint, R70.0 - Elevated erythrocyte sedimentation rate, R76.8 - Other specified abnormal immunological findings in serum C Reactive Protein 09/08/23 M25.50 - Pain in unspecified joint, R70.0 - Elevated erythrocyte sedimentation rate, R76.8 - Other specified abnormal immunological findings in serum Uric Acid 09/08/23 M25.50 - Pain in unspecified joint, R70.0 - Elevated erythrocyte sedimentation rate, R76.8 - Other specified abnormal immunological findings in serum HLA B27 09/08/23 M25.50 - Pain in unspecified joint, R70.0 - Elevated erythrocyte sedimentation rate, R76.8 - Other specified abnormal immunological findings in serum Coding Level of Care Code Est Pt Level 4 (34246) Diagnoses REBECCA positive R76.8 Pain in joint involving multiple sites M25.50 Lumbar back pain with radiculopathy affecting left lower extremity M54.16 Chronic pain of both shoulders M25.511; M25.512; G89.29 Chronicity: chronic
[2023-09-08 12:54] VITALS: BP 110/84; PULSE 81; BMI 39.1
== END 2023-09-08 13:35 | disposition home or self-care (01) ==
PROVIDERS: PCP Registered Nurse; Visit Provider Nurse Practitioner Family
DX: R76.8 Other specified abnormal immunological findings in serum (principal); M25.50 Pain in unspecified joint; M54.16 Radiculopathy, lumbar region; M25.511 Pain in right shoulder; M25.512 Pain in left shoulder; G89.29 Other chronic pain
CPT/HCPCS: 99214

== ENCOUNTER 2023-09-08 12:51 | Outpatient (REF) | payer OTHER, SELFPAY ==
--- NOTE | ~2023-09-08 | XR_ITS ---
EXAMINATION: XR HAND, RIGHT CLINICAL INFORMATION: Pain in unspecified joint COMPARISON: Same-day left hand TECHNIQUE: PA, lateral, and oblique views of the right hand. FINDINGS: The bones are intact. No fracture. Negative ulnar variance is noted. Joint spaces are maintained. No erosions or soft tissue calcifications. XR/XR hand RT min 3V IMPRESSION: No acute bony abnormality.
--- NOTE | ~2023-09-08 | XR_ITS ---
EXAMINATION: XR HAND, LEFT CLINICAL INFORMATION: Pain in unspecified joint COMPARISON: Same-day right hip TECHNIQUE: PA, lateral, and oblique views of the left hand. FINDINGS: The bones are intact. No fracture. Negative ulnar variance is noted. Joint spaces are maintained. No erosions or soft tissue calcifications. XR/XR hand LT min 3V IMPRESSION: No acute bony abnormality.
[2023-09-08 14:00] LABS: MANUAL DIFF FLAG NO
[2023-09-08 14:29] LABS: Basophils Absolute Auto 0.1 X10*3/uL (0.0-0.2); Basophils Percent Auto 0.9 % (0-2); Eosinophils Absolute Auto 0.2 X10*3/uL (0.0-0.4); Eosinophils Percent Auto 2.1 % (0-4); Hematocrit 44.6 % (37.0-47.0); Imm Gran Abs Auto 0.03 X10*3/uL (0.00-0.03); Imm Gran Pct Auto 0.4 % (0.0-0.4); Lymphocytes Absolute Auto 1.9 X10*3/uL (1.2-4.9); Mean Corpuscular HGB Conc 33.6 g/dl (31.0-35.0); Mean Corpuscular Hemoglobin 27.7 pg (27.0-33.0); Mean Corpuscular Volume 82.3 fL (80.0-98.0); Mean Platelet Volume 10.8 fL (9.4-12.3); Monocytes Absolute Auto 0.7 X10*3/uL (0.1-1.2); Monocytes Percent Auto 8.1 % (2-11); Neutrophils Absolute Auto 5.3 x10*3/uL (2.0-8.3); Neutrophils Percent Auto 65.5 % (45-73); Platelet Count 287 X10*3/uL (160-400); Red Blood Count 5.42 X10*6/uL (4.20-5.50); Red Cell Distribution Width 16.1 % (11.0-16.0); White Blood Count 8.1 X10*3/uL (4.8-10.8)
[2023-09-08 15:06] LABS: Alanine Aminotransferase 15 U/L (0-31); Albumin Level 4.2 g/dL (3.5-5.0); Alkaline Phosphatase 74 U/L (39-117); Anion Gap 11 (12-20); Aspartate Amino Transferase 18 U/L (5-31); Bilirubin Total 0.5 mg/dL (0.0-1.0); Blood Urea Nitrogen 10 mg/dL (9-16); C Reactive Protein 0.73 mg/dL (< or = 0.50); Calcium 8.9 mg/dL (8.4-10.2); Carbon Dioxide 25 mmol/L (22-29); Chloride 105 mmol/L (96-108); Estimated Glomerular Filt Rate > 60; Glucose Random 102 mg/dL (60-115); Potassium 4.2 mmol/L (3.3-5.1); Sodium 137 mmol/L (135-145); Total Protein 7.5 g/dL (6.5-8.0); Uric Acid 5.7 mg/dL (2.4-5.7)
[2023-09-08 15:10] LABS: Erythrocyte Sedimentation Rate 14 MM/HR (0-20)
[2023-09-09 18:35] LABS: Antibody to SS-A Antigen <1.0 NEG AI (<1.0 NEG); Antibody to SS-B Antigen <1.0 NEG AI (<1.0 NEG); SM/Ribonucleoprotein Ab <1.0 NEG AI (<1.0 NEG); Smith Protein <1.0 NEG AI (<1.0 NEG)
[2023-09-11 23:13] LABS: HLA B27 Negative (Negative)
== END 2023-09-08 12:52 | disposition home or self-care (01) ==
LOC: HO.LAB 12:51
PROVIDERS: PCP Registered Nurse; Visit Provider Nurse Practitioner Family
DX: R70.0 Elevated erythrocyte sedimentation rate (principal); R76.8 Other specified abnormal immunological findings in serum; M25.50 Pain in unspecified joint; M54.16 Radiculopathy, lumbar region; M25.511 Pain in right shoulder; M25.512 Pain in left shoulder; G89.29 Other chronic pain
CPT/HCPCS: 36415; 73130; 80053; 84550; 85025; 85652; 86140; 86235; 86812; 99212

== ENCOUNTER 2023-10-15 14:47 | Outpatient (AMB) | payer OTHER, MEDICAID, SELFPAY ==
[2023-10-15 14:49] VITALS: BP 120/82; PULSE 97; TEMP 36.1; O2SAT 99; BMI 40.0
--- NOTE | 2023-10-15 14:49 | MHC.OFFVIS ---
Intake Vital Signs 10/15/23 14:49 Height 5 ft 2 in Weight 218 lb 11.177 oz BMI 40.0 BP 120/82 Blood Pressure Location Rt brachial Position Sitting Pulse 97 Pulse Source Pulse Oximeter Temp 97 F Temp Source Skin Pulse Oximetry (%) 99 Oxygen Delivery Method Room Air Intake Visit Reasons: Positive REBECCA Intake Note: Patient last seen 09/08/23, presents today for follow up and test results. Supervisor Fitting Required: Yes Supervisor Fitting Language: Credit Card Analyst Name: Lulu Washington Information Interpreted: clinical only Accompanied by: Self / Same As Patient Allergies tizanidine Allergy (Intermediate, Verified 10/15/23 14:52) Swelling HPI HPI Comments History of Present Illness Details Mrs. Mendoza, 53-year-old female referred by her PCP is here follow-up of initial evaluation of polyarthralgia and positive REBECCA. She continues with a history of hypothyroid, Pre diabetes, fibromyalgia and is a smoker with chronic low back pain. The patient reports that she has pain all over her body especially to back and knees for many years. Her the most significant area of pain is her lower back for which she is seeing Pain Management and receives injections. This has affected her walking and has caused her to fall. Per patient she was followed by rheumatology in [place] who gave her of splint for her bilateral wrist due to carpal tunnel and was also told that she had osteoarthritis in her joint. She reports that she takes gabapentin and diclofenac potassium with partial relief. She has not had Bilateral CTS since. Patient states she is to have back surgery but the pain management has not sent the MRI to the surgeon nor has she heard from pain management. PRIOR VISITs with pain management : Past Procedures: 11/06/22: Left L4-L5 parasagittal interlaminar LANIE-30% pain relief Patient is a pleasant 52 year old [place]ian speaking female with a history of fibromyalgia and peripheral neuropathy present today with lower back pain and with pain all over her body. Reports chronic back pain for 15 years that has been worsening for the past 4 months. Denies any recent trauma, injury or falls. Lower back pain presents as axial but also radiates to the left lower extremity laterally and posteriorly with numbness and tingling in both feet and both hands. The pain is constant and is described as pinching, cramping, crushing, dull, sore, hurting, aching, heavy, tiring, exhausting, sharp, cutting, lacerating, hot burning, scalding, searing, tingling, stinging, tight, squeezing and tearing. Pain interferes with her daily activities, walking, standing, sitting, sleeping or social activities. Reports left lower extremity weakness and increased left leg pain with walking or bending forward. Denies previous spine surgery but has tried injections and those were without effect. Patient completed physical therapy in January 2022 without improvement in her symptoms. Lumbar spine MRI on 01/03/22 reviewed and are noted for moderate stenosis and left neuroforaminal narrowing at L4-L5 with ligament hypertrophy and mild Modic 2 endplate changes at L4-L5. Patient has been taking gabapentin and diclofenac potassium with partial relief. Reports swelling reaction with tizanidine. Patient denies any fever, chills, weight changes, dizziness, visual disturbances, bowel or bladder incontinence, or saddle anesthesia. Patient requests Hand specialist for bilateral carpal tunnel syndrome, right worse than left and has previously managed her bilateral hand pain with NSAIDs, OT/PT, and wrist immobilizers 5 years ago in [place]. She also reports bilateral reconstructive shoulder surgery and has residual neck pain and shoulder pain. Patient reports difficulty with opening or handling jars. [facility] Medical History (Updated 09/08/23 @ 13:26 by SHAYLA Guerrier) Elevated sed rate REBECCA positive Pain in joint involving multiple sites Neuropathy, peripheral Fibromyalgia Migraine Pre-diabetes Sleep apnea GERD (gastroesophageal reflux disease) Foot fracture Asthma Hypothyroidism Surgical History H/O umbilical hernia repair H/O shoulder surgery Hx of section Family History Mother Hypothyroidism HTN (hypertension) Diabetes Father Esophagus cancer Brother Asthma Social History Household Members: Family Housing: Apartment Alcohol intake: never Patient Tobacco Use Status: Current someday Tobacco user Tobacco use type: Cigarette Cigarettes Per Day: 20 Years Smoked: 25 Current occupational status: disabled Current occupation: rt hand Female Reproductive History Menstrual Age of Menarche: 8 Review of Systems Const All systems reviewed & are unremarkable except as noted in HPI and below Physical Exam Vital Signs: BMI result Body Mass Index 40.0 APPEARANCE: Patient in no acute distress, groomed nourished obese EYES no redness, pupils equal and reactive to light, eyelids normal EARS:? External ear normal, canal clear and tympanic membrane normal. NOSE/SINUS:? Airflow through both nares, no nasal discharge, no bleeding Mouth/THROAT:? Oral mucosa moist, no ulcerations. Poor dentition NECK:? No thyromegaly or masses, no adenopathy, trachea midline. HEART:? Regular rhythm, S1-S2 heard, no murmurs, rubs or gallops. LUNG:? Clear to percussion and auscultation ABD:? Large abdomen. Normal bowel sounds, no organomegaly, masses or tenderness. EXTREMITIES:? No edema, no calf tenderness, normal peripheral pulses. NEURO:? Oriented and alert x3.? No focal weakness.? Reflexes symmetric.? SKIN:? There are no skin lesions evident. No objective signs of Raynaud's phenomenon. JOINT EXAM: Cervical Spine:.? Full range of motion without pain; no tenderness. Thoracic Spine:.? No scoliosis.? No tenderness on palpation. Lumbar Spine:.? Alignment normal.? Full range of motion without pain. tenderness. Chest Wall:.? No tenderness, swelling, increased warmth or erythema. Hands:.? Normal pain-free range of motion without tenderness, swelling, increased warmth or erythema. Able to make a full fist and has a good industrial services worker strength. Wrists:.? Normal pain-free range of motion without tenderness, swelling, increased warmth or erythema. -negative tinnels and phalens Elbows:. Normal pain-free range of motion without tenderness, swelling, increased warmth or erythema. Shoulders:.?? Full range of motion without pain. No tenderness, weakness, swelling, increased warmth or erythema. Hip bursa:.?Mild tenderness. Knees:.?? Normal pain-free range of motion with mild tenderness to medial joint line, but no swelling, increased warmth or erythema.? There is no effusion or crepitation Ankles:.? Normal pain-free range of motion without tenderness, swelling, increased warmth or erythema. Feet:.? Normal pain-free range of motion without tenderness, swelling, increased warmth or erythema. Tender points:? No tenderness to digital palpation at the occiput, trapezius, second rib, lateral epicondyle, knees, greater trochanter and gluteal area bilaterally. Assessment & Plan Assessment & Plan (1) REBECCA positive: Code(s): R76.8 - Other specified abnormal immunological findings in serum (2) Pain in joint involving multiple sites: Code(s): M25.50 - Pain in unspecified joint (3) Lumbar back pain with radiculopathy affecting left lower extremity: Code(s): M54.16 - Radiculopathy, lumbar region (4) Shoulder pain, bilateral: Code(s): M25.511 - Pain in right shoulder; M25.512 - Pain in left shoulder Qualifiers: Chronicity: chronic Qualified Code(s): M25.511 - Pain in right shoulder; M25.512 - Pain in left shoulder; G89.29 - Other chronic pain Plan #+REBECCA/Joint Pain:Miss Mendoza is a 53-year-old female here for evaluation of joint pain with positive REBECCA. I have reviewed labs and xrays with the patient. Serology and hand Xray was unrevealing. I continue to think there is no underlying autoimmune or inflammatory disease process to her joint pain. Admittedly she has a positive REBECCA 1:80 but all extractable antigens are negative. In addition patient denies relevant features of an inflammatory arthritis and non is observed on PE. She denies erythematous, warm, swollen joints, (see HPI). She reports that she was being seen by photolith operator in [place] for osteoarthritis and fibromyalgia. She can continue on medications as prescribed by her PCP for this condition - Cymbalta, Gabapentinm naproxen, Voltaren gel, Robaxin and gabapentin. She desires a sleep aid. I refer to the cymbalta dosage which she says was prescribed to help her sleep, However she said it is no longer effective. I encourage that she discusses this with primary care for an alternative. #Lumbar Pain: MRI 12/2021 shows Disc herniation and Stenosis. She is being seen by Pain Management and has received injections to lower back 11/2022. Patient is interested in doing back surgery but needs to do some additional follow-up to move the process along. I discussed with patient that she has to call pain management to have the MRI sent, Perhaps she needs to sign a record release form. #Shoulder Pain: According to Past imaging, there is moderate calcific tendinitis to shoulders. She did get an injection from Ortho since last visit. She states it was mild relief. Given that she does not have an underlying CTD or inflammatory Rheumatic process, she is being followed by pain management and Ortho, I do not think we need a scheduled followup. Should the patient develop signs and symptoms of inflammation, red warm swollen joints, or signs of CTD, she can schedule an appointment to be evaluated. I spent 20 mins reviewing chart and diagnostics, evaluating patient and documenting Coding Level of Care Code Est Pt Level 3 (65729) Diagnoses REBECCA positive R76.8 Pain in joint involving multiple sites M25.50 Lumbar back pain with radiculopathy affecting left lower extremity M54.16 Chronic pain of both shoulders M25.511; M25.512; G89.29 Chronicity: chronic
== END 2023-10-15 15:33 | disposition home or self-care (01) ==
PROVIDERS: PCP Registered Nurse; Visit Provider Nurse Practitioner Family
DX: R76.8 Other specified abnormal immunological findings in serum (principal); M25.50 Pain in unspecified joint; M54.16 Radiculopathy, lumbar region; M25.511 Pain in right shoulder; M25.512 Pain in left shoulder; G89.29 Other chronic pain
CPT/HCPCS: 99213

== ENCOUNTER → 2023-10-15 14:47 | Outpatient (BNVA) | payer OTHER, MEDICAID, SELFPAY | PROVIDERS: PCP Registered Nurse; Visit Provider Nurse Practitioner Family | DX: R76.8 Other specified abnormal immunological findings in serum (principal); G89.29 Other chronic pain; M25.511 Pain in right shoulder; M25.512 Pain in left shoulder; M54.16 Radiculopathy, lumbar region | CPT/HCPCS: 99212 ==

== ENCOUNTER 2024-06-17 13:29 | Emergency (ER) | payer OTHER, SELFPAY ==
--- NOTE | ~2024-06-17 | XR_ITS ---
EXAMINATION: XR KNEE, RIGHT CLINICAL INFORMATION: Right knee pain. COMPARISON: None available. TECHNIQUE: Four views of the right knee. FINDINGS: No fracture or joint effusion. Alignment is anatomic. Joint spaces are maintained. No abnormal soft tissue calcification. XR/XR knee RT 4V IMPRESSION: Normal right knee. Electronically signed by: Smith Vega MD 06/17/2024 04:54 PM EDT
--- NOTE | 2024-06-17 14:07 | ED_ITS ---
HPI - Extremity Injury (Lower) General Chief Complaint: Extremity Injury, Lower Stated Complaint: r knee pain Time Seen by Provider: 06/17/24 17:14 Source: patient Mode of arrival: ambulatory Limitations: no limitations History of Present Illness ED Provider: Daryl Colbert PA-C HPI Narrative: 53 yold female with the Fribosis, CATHERINE, fibromyaglia, and GERD presents to the ED for right knee pain. Patient states she jumped and when she landed she heard a pop lateral side of right knee. Patient denies any blunt trauma. Patient states pain on ambulation ever since incident. Patient has known history of meniscus tear in the same knee. Patient denies any other complaints. Patient denies any head or loss of consciousness. Related Data Home Medications ?Medication ?Instructions ?Recorded ?Confirmed albuterol sulfate 90 mcg/actuation 2 puff PO Q4-6H PRN wheezing 06/18/21 03/07/23 aerosol inhaler (ProAir HFA) duloxetine 60 mg capsule,delayed 60 mg PO DAILY 06/18/21 03/07/23 release fluticasone propionate 110 1 puff PO BID 06/18/21 03/07/23 mcg/actuation HFA aerosol inhaler (Flovent HFA) ibuprofen 800 mg tablet 800 mg PO TID 06/18/21 03/07/23 naproxen 500 mg tablet 500 mg PO BID PRN pain 06/18/21 03/07/23 omeprazole 20 mg capsule,delayed 20 mg PO DAILY 06/18/21 03/07/23 release topiramate 25 mg tablet 25 mg PO DAILY 06/18/21 03/07/23 hydroxyzine HCl 25 mg tablet 25 mg PO PRN 09/04/22 03/07/23 diclofenac potassium 50 mg tablet 50 mg PO BID moderate pain 10/15/22 03/07/23 levothyroxine 100 mcg tablet 100 mcg PO QAM 12/05/22 03/07/23 duloxetine 30 mg capsule,delayed 30 mg PO DAILY 03/07/23 03/07/23 release gabapentin 600 mg tablet 600 mg PO BID 10/15/23 Previous Rx's ?Medication ?Instructions ?Recorded bisacodyl 5 mg tablet,delayed 10 mg (2 x 5 mg) PO BEDTIME 2 days 07/03/21 release (Dulcolax (bisacodyl)) #4 tabs methocarbamol 750 mg tablet 750 mg PO BID PRN muscle spasm 30 12/05/22 days #60 tabs naproxen 500 mg tablet 500 mg PO BID PRN pain 7 days #14 06/17/24 tabs oxycodone 10 mg tablet 10 mg PO Q8H PRN pain 3 days #9 06/17/24 tabs Allergies Allergy/AdvReac Type Severity Reaction Status Date / Time tizanidine Allergy Intermediate Swelling Verified 06/17/24 14:08 Review of Systems 2 Review of Systems: knee pain Yes all other systems are reviewed and are negative [facility] Past Medical History Medical History (Updated 06/18/24 @ 00:01 by Haroon Diaz) Elevated sed rate REBECCA positive Pain in joint involving multiple sites Neuropathy, peripheral Fibromyalgia Migraine Pre-diabetes Sleep apnea GERD (gastroesophageal reflux disease) Foot fracture Asthma Hypothyroidism Surgical History H/O umbilical hernia repair H/O shoulder surgery Hx of section Family History Family History Mother Hypothyroidism HTN (hypertension) Diabetes Father Esophagus cancer Brother Asthma Social History Social History Household Members: Family Housing: Apartment Alcohol intake: never Patient Tobacco Use Status: Current someday Tobacco user Tobacco use type: Cigarette Cigarettes Per Day: 20 Years Smoked: 25 Advance Directives: No Advance Directives Information Provided: No Do you have a plan to hurt others: No Plan Current occupational status: disabled Current occupation: rt hand Physical Exam 2 Vital Signs: Vital Signs: Last Vital Signs Temp 98.2 F 06/17/24 18:46 Pulse 80 06/17/24 18:46 Resp 14 06/17/24 18:46 BP 130/70 06/17/24 18:46 Pulse Ox 98 06/17/24 18:46 O2 Del Method Room Air 06/17/24 18:46 BMI result Body Mass Index 30.7 Const: General: cooperative, healthy appearing, comfortable, no acute distress, well developed, alert, awake and Physically active O rientation/consciousness: patient oriented x3 HEENT: Head: Yes normal to inspection, Yes No palpable skull fracture present, Yes normocephalic and Yes atraumatic Eyes: General: appearance normal, both eyes and all related structures Neck: Neck: Yes normal visual inspection, Yes full ROM, Yes no lymphadenopathy, Yes no meningeal signs, Yes trachea midline, Yes supple, No anterior neck swelling and No tender Chest: Chest palpation & inspection: normal inspection of the chest and normal palpation of entire chest wall Resp: Effort & Inspection: normal respiratory effort and able to speak in complete sentences Auscultation: clear to auscultation bilaterally Cardio: Jugular venous distension: no JVD Heart sounds: S1 normal heart sound present and S2 normal heart sound present GI: Inspection: Yes normal to inspection Palpation (GI): Soft to palpation, not firm, nontender, no guarding and not rigid : General: Yes no CVA tenderness Back/Spine/Pelvis: Back: no CVA tenderness and No back tenderness Skin: General skin exam: no rashes or lesions noted, elasticity normal and turgor normal Neuro: General: patient oriented x3, gait normal, tone normal, moves all extremities, Normal light touch and pain sensation, no meningeal signs, no focal motor deficits and CN's II-XI intact bilaterally Extrem: General: Yes normal to inspection, Yes full ROM and Yes capillary refill normal Knee images: 1. positive for tenderness on palpation. negative for swelling, erythema, ecchymosis, stiffness, deformity, hotness, or coldness. rest of extremity normal. motor, neuro, and vascular exam is intact. Psych: Appearance: grossly normal, well kempt and not disheveled Course Course Course Narrative: This is a Rapid Medical Examination (RME) performed by Aristeo Jacome PA-C in triage. Full HPI, ROS, assessment and treatment plan per primary provider in the Main ED. 53 yo Ghanaian-speaking female with a history of obesity, CATHERINE, migraines, GERD, peripheral neuropathy, fibromyalgia, PVD, depression, anxiety, asthma who presents to the ER for evaluation of right knee pain s/p injury 2 days ago. she stepped hard and felt a crack. hx fall 2 months ago with right knee injury as well. it is swollen but she denies erythema or warmth to touch. taking naproxen, tylenol with no improvement. Plan: xr right knee Medications Administered Discontinued Medications Generic Name Dose Route Start Last Admin Trade Name Freq PRN Reason Stop Dose Admin Ketorolac Tromethamine 30 mg 06/17/24 18:01 06/17/24 18:19 Ketorolac Tromethamine 30 Mg/Ml Vial IM 06/17/24 18:02 30 mg ONCE ONE Administration Medical Decision Making Medical Decision Making MDM Narrative: 53 yold female with right knee pain after stompin hard and hearing a pop. Xray negative for fracture or disclocation. Physical exam negative for sigsn for septic knee, discloation, gout, DVT, arterial occlusion, or compartment syndrome. Patient informed for follow up with PCP for MRI. patient explained worrisome and inforemed to return to the ED immeidatley. Differential Diagnosis Differential Diagnoses: The differential diagnosis associated with the presentation includes (Knee sprain, disclocation, fracture) Admission/Observation Consideration of admission/observation: Escalation of care including admission/observation considered Independent Interpretation I performed an independent interpretation of an: Plain X-Ray Radiology Impression Discussion of test interpretation with radiology: I have reviewed the radiologist's reading. Independent Historian Clinical information obtained from an independent historian. History obtained from or confirmed by: Other (Patient) External Record Review External record reviewed: Other (prior vistis) Prescription Management I considered prescription management with: Pain Medication Discharge Plan Discharge Clinical Impression: Knee pain Patient Disposition: Home, Self-Care Instructions: Knee Pain (ED) Additional Instructions: Recommend follow-up with primary care provider. Most likely you will need an MRI to rule out any meniscus/ligament tear in her knee. Return to the ED immediately for any knee swelling, calf pain, coughing up blood, hotness, coldness, or any other concerning symptoms. XR/XR knee RT 4V IMPRESSION: Normal right knee. Electronically signed by: Smith Vega MD 06/17/2024 04:54 PM EDT Prescriptions: New oxycodone 10 mg tablet 10 mg PO Q8H PRN (Reason: pain) 3 Days Qty: 9 0RF Rx Instructions: Partial Fill upon patient request. naproxen 500 mg tablet 500 mg PO BID PRN (Reason: pain) 7 Days Qty: 14 0RF No Action bisacodyl [Dulcolax (bisacodyl)] 5 mg tablet,delayed release (DR/EC) 10 mg PO BEDTIME 2 Days Qty: 4 0RF duloxetine 60 mg capsule,delayed release(DR/EC) 60 mg PO DAILY naproxen 500 mg tablet 500 mg PO BID PRN (Reason: pain) Flovent HFA 110 mcg/actuation HFA aerosol inhaler 1 puff PO BID albuterol sulfate [ProAir HFA] 90 mcg/actuation HFA aerosol inhaler 2 puff PO Q4-6H PRN (Reason: wheezing) omeprazole 20 mg capsule,delayed release(DR/EC) 20 mg PO DAILY topiramate 25 mg tablet 25 mg PO DAILY ibuprofen 800 mg tablet 800 mg PO TID gabapentin 600 mg tablet 600 mg PO BID diclofenac potassium 50 mg tablet 50 mg PO BID levothyroxine 100 mcg tablet 100 mcg PO QAM methocarbamol 750 mg tablet 750 mg PO BID PRN (Reason: muscle spasm) 30 Days Qty: 60 1RF hydroxyzine HCl 25 mg tablet 25 mg PO PRN duloxetine 30 mg capsule,delayed release(DR/EC) 30 mg PO DAILY Stand Alone Forms: Work/School Release Interventions: ED Discharge Assessment Last Done: 06/17/24 18:46 Discharge Date/Time: 06/17/24 18:47 Print Language: Ghanaian
[2024-06-17 14:08] VITALS: BP 170/93; PULSE 76; RESP 16; TEMP 36.8; O2SAT 97; BMI 30.7
[2024-06-17] MEDS: Ketorolac Tromethamine 30 MG/ML VIAL IM (18:19)
[2024-06-17 18:46] VITALS: BP 130/70; PULSE 80; RESP 14; TEMP 36.8; O2SAT 98
== END 2024-06-17 18:47 | disposition home or self-care (01) ==
PROVIDERS: Emergency Provider Emergency Medicine; PCP Registered Nurse
DX: M25.561 Pain in right knee (principal)
CPT/HCPCS: 73564; 96372; 99283; 99284; J1885

== ENCOUNTER 2024-06-28 12:05 | Emergency (ER) | payer OTHER, SELFPAY ==
[2024-06-28 12:54] VITALS: BP 172/102; PULSE 110; RESP 18; TEMP 36.6; BMI 41.7
[2024-06-28 20:05] VITALS: BP 113/77; PULSE 95; RESP 16; TEMP 36.4; O2SAT 98
--- NOTE | 2024-06-29 00:07 | PC.NURSE ---
Dr. Carrington at bedside for evaluation.
--- NOTE | 2024-06-29 00:16 | ED_ITS ---
HPI - Back Pain/Injury General Chief Complaint: Back Pain/Injury Stated Complaint: Lower back pain Time Seen by Provider: 06/29/24 00:03 Source: patient Mode of arrival: ambulatory Limitations: no limitations History of Present Illness ED Provider: Dr. Geri Carrington HPI Narrative: Patient comes to the emergency room complaining of right lower back pain. Patient states that yesterday morning she woke up, was trying to roll around her bed to get up and felt a stretching sensation in her back. Patient states that she has history of sciatica/herniated disc. Patient states that she has had multiple MRIs in the past and is waiting to be seen by neurosurgery. Patient denies any numbness tingling in lower extremities or perianal area, denies urinary/fecal incontinence/retention. Patient states that the pain is localized. Related Data Home Medications ?Medication ?Instructions ?Recorded ?Confirmed albuterol sulfate 90 mcg/actuation 2 puff PO Q4-6H PRN wheezing 06/18/21 03/07/23 aerosol inhaler (ProAir HFA) duloxetine 60 mg capsule,delayed 60 mg PO DAILY 06/18/21 03/07/23 release fluticasone propionate 110 1 puff PO BID 06/18/21 03/07/23 mcg/actuation HFA aerosol inhaler (Flovent HFA) ibuprofen 800 mg tablet 800 mg PO TID 06/18/21 03/07/23 naproxen 500 mg tablet 500 mg PO BID PRN pain 06/18/21 03/07/23 omeprazole 20 mg capsule,delayed 20 mg PO DAILY 06/18/21 03/07/23 release topiramate 25 mg tablet 25 mg PO DAILY 06/18/21 03/07/23 hydroxyzine HCl 25 mg tablet 25 mg PO PRN 09/04/22 03/07/23 diclofenac potassium 50 mg tablet 50 mg PO BID moderate pain 10/15/22 03/07/23 levothyroxine 100 mcg tablet 100 mcg PO QAM 12/05/22 03/07/23 duloxetine 30 mg capsule,delayed 30 mg PO DAILY 03/07/23 03/07/23 release gabapentin 600 mg tablet 600 mg PO BID 10/15/23 Previous Rx's ?Medication ?Instructions ?Recorded bisacodyl 5 mg tablet,delayed 10 mg (2 x 5 mg) PO BEDTIME 2 days 07/03/21 release (Dulcolax (bisacodyl)) #4 tabs methocarbamol 750 mg tablet 750 mg PO BID PRN muscle spasm 30 12/05/22 days #60 tabs naproxen 500 mg tablet 500 mg PO BID PRN pain 7 days #14 06/17/24 tabs oxycodone 10 mg tablet 10 mg PO Q8H PRN pain 3 days #9 06/17/24 tabs Allergies Allergy/AdvReac Type Severity Reaction Status Date / Time tizanidine Allergy Intermediate Swelling Verified 06/28/24 13:03 Review of Systems Review of Systems: Constitutional : No Weight loss, No Fever, No Chills, No Night Sweats, No Fatigue, No Malaise ENT/Mouth : No Hearing loss, No Ear Pain, No Nasal Congestion, No Sinus Pain, No Hoarseness, No sore throat, No Rhinorrhea, No Swallowing Difficulty Eyes: No Eye Pain, No Swelling, No Redness, No Foreign Body, No Discharge, No Vision Changes Cardiovascular : No Chest Pain, No SOB, No Dyspnea on Exertion, No Orthopnea, No Edema, No Palpitations Respiratory : No Cough, No Sputum, No Wheezing, No Smoke Exposure, No Dyspnea Gastrointestinal : No Nausea, No Vomiting, No Diarrhea, No Constipation, No abdominal Pain, No Hematochezia, No Melena Genitourinary : no irregular bleeding, No Dysuria, No Urinary Frequency, No Hematuria, No Urinary Incontinence, No Urgency, No Flank Pain, No Urinary Flow Changes, No Hesitancy Musculoskeletal : Complaining of back pain in the right lower part of the back No Myalgias, No Joint Swelling Skin : No Skin Lesions, No rash Neuro : No Weakness, No Numbness, No Paresthesias, No Loss of Consciousness, No Dizziness, No Headache Psych : No Anxiety/Panic, No Depression, No SI/HI/AH/VH, No Social Issues, Heme/Lymph: No Bruising, No Bleeding,No Lymphadenopathy Endocrine : No Polyuria, No Polydipsia, No Temperature Intolerance [facility] Past Medical History Medical History Elevated sed rate REBECCA positive Pain in joint involving multiple sites Neuropathy, peripheral Fibromyalgia Migraine Pre-diabetes Sleep apnea GERD (gastroesophageal reflux disease) Foot fracture Asthma Hypothyroidism Surgical History H/O umbilical hernia repair H/O shoulder surgery Hx of section Family History Family History Mother Hypothyroidism HTN (hypertension) Diabetes Father Esophagus cancer Brother Asthma Social History Social History Household Members: Family Housing: Apartment Alcohol intake: never Patient Tobacco Use Status: Current someday Tobacco user Tobacco use type: Cigarette Cigarettes Per Day: 20 Years Smoked: 25 Advance Directives: No Advance Directives Information Provided: No Do you have a plan to hurt others: No Plan Current occupational status: disabled Current occupation: rt hand Physical Exam Vital Signs: Vital Signs: Last Vital Signs Temp 97.6 F 06/28/24 20:05 Pulse 95 06/28/24 20:05 Resp 16 06/28/24 20:05 BP 113/77 06/28/24 20:05 Pulse Ox 98 06/28/24 20:05 O2 Del Method Room Air 06/28/24 20:05 BMI result Body Mass Index 41.7 Const: Other: Appearance: Alert. Oriented X3. No acute distress. Eyes: Pupils equal, round and reactive to light. ENT: Pharynx normal. Neck: Normal inspection. Neck supple. No lymph nodes noted. No crepitus CVS: Normal heart rate and rhythm. Pulses normal. Normal S1 and S2 Respiratory: No respiratory distress. Breath sounds normal. No Wheezing. No rales Abdomen: Soft and nontender. No rigidity. No distention. Back: No pain to palpation over the cervical/thoracic/lumbar area. Pain to palpation over the paraspinal muscles on the right side. Skin: Skin warm and dry. Normal skin color. Normal skin turgor. Extremities: No lower extremity edema. No Lacerations. No Rash Neuro: Oriented X 3. No motor deficit. No sensory deficit. Moving all extremities. No slurred speech. CN 2 through 12 grossly intact Psych: calm, cooperative, normal affect Medical Decision Making Medical Decision Making MDM Narrative: I discussed the physical exam with the patient, patient having musculoskeletal pain versus sciatica versus herniated disc -patient does not have any signs of cauda equina. -patient giving a dose of IM ketorolac and Decadron. Patient will follow-up with her neurosurgeon. Differential Diagnosis Differential Diagnoses: The differential diagnosis associated with the p resentation includes (As above) Discharge Plan Discharge Clinical Impression: Musculoskeletal back pain Patient Disposition: Home, Self-Care Instructions: Back Pain (ED) Prescriptions: No Action oxycodone 10 mg tablet 10 mg PO Q8H PRN (Reason: pain) 3 Days Qty: 9 0RF Rx Instructions: Partial Fill upon patient request. naproxen 500 mg tablet 500 mg PO BID PRN (Reason: pain) 7 Days Qty: 14 0RF bisacodyl [Dulcolax (bisacodyl)] 5 mg tablet,delayed release (DR/EC) 10 mg PO BEDTIME 2 Days Qty: 4 0RF duloxetine 60 mg capsule,delayed release(DR/EC) 60 mg PO DAILY naproxen 500 mg tablet 500 mg PO BID PRN (Reason: pain) Flovent HFA 110 mcg/actuation HFA aerosol inhaler 1 puff PO BID albuterol sulfate [ProAir HFA] 90 mcg/actuation HFA aerosol inhaler 2 puff PO Q4-6H PRN (Reason: wheezing) omeprazole 20 mg capsule,delayed release(DR/EC) 20 mg PO DAILY topiramate 25 mg tablet 25 mg PO DAILY ibuprofen 800 mg tablet 800 mg PO TID gabapentin 600 mg tablet 600 mg PO BID diclofenac potassium 50 mg tablet 50 mg PO BID levothyroxine 100 mcg tablet 100 mcg PO QAM methocarbamol 750 mg tablet 750 mg PO BID PRN (Reason: muscle spasm) 30 Days Qty: 60 1RF hydroxyzine HCl 25 mg tablet 25 mg PO PRN duloxetine 30 mg capsule,delayed release(DR/EC) 30 mg PO DAILY Print Language: Swedish
[2024-06-29] MEDS: dexAMETHasone sod phosphate 4 MG/ML VIAL IM (00:30)
[2024-06-29] MEDS: Ketorolac Tromethamine 60 MG/2 ML VIAL IM (00:31)
[2024-06-29 00:38] VITALS: BP 113/77; PULSE 95; RESP 16; TEMP 36.4; O2SAT 98
== END 2024-06-29 00:39 | disposition home or self-care (01) ==
PROVIDERS: Emergency Provider Emergency Medicine; PCP Registered Nurse
DX: M79.18 Myalgia, other site (principal); M54.50 Low back pain, unspecified; F17.210 Nicotine dependence, cigarettes, uncomplicated
CPT/HCPCS: 96372; 99283; 99284; J1100; J1885

== ENCOUNTER 2025-02-28 14:04 | Outpatient (REF) | payer OTHER, SELFPAY ==
--- OUTSIDE RECORDS SUMMARY | 2025-02-28 15:21 | XMS_ITS | Encounter Summary ---
Author Organization [employer] Address [address] [place] [address] Care Team Providers Care Highway Administrative Engineer Name Role Phone Kyra Lopez CHAVO Primary Care Provider [phone] Encounter Details Date Type Department Care Team (Late st Contact Info) Description 06/23/2023 Orders Only [facility] [address] [place], [place] [phone] Kimberly To Social History Tobacco Use Types Packs/Day Years Used Date Smoking Tobacco: Every Day Cigarettes Smokeless Tobacco: Never Alcohol Use Standard Drinks/Week Comments Never 0 (1 standard drink = 0.6 oz pur e alcohol) Depression Answer Date Recorded Patient Health Questionnaire-9 Score 23 11/12/2022 Depression Answer Date Recorded Patient Health Questionnaire-2 Score 6 11/12/2022 Comments Unknown Sex and Gender Information Value Date Recorded Sex Assigned at Female 07/29/2022 10:35 AM EDT Legal Sex Female 10:35 AM EDT Gender Identity Female 07/29/2022 10:35 AM EDT Sexual Orientation Straight 07/29/2022 10 :35 AM EDT documented as of this encounter Plan of Treatment Upcoming Encounters Date Type Department Care Team (Late Contact Info) Description 06/02/2025 1:00 PM EDT Office Visit [facility] [address] [place], [place] [phone] Nandini Zelaya OD [address] [place] [address] 06/03/2025 1:45 PM EDT Office Visit [facility] [address] [place] [address] Kyra Lopez FNP [address] [place] [address] documented as of this encounter Procedures Procedure Name Priority Date/Time Associated Diagnosis Comments HM PAP/HPV Routine 06/18/2021 12:00 AM EDT documented in this encounter Results * Hm Pap Smear (06/18/2021 12:00 AM EDT) Historical Provider HEALTH MAINTENANCE Final Result documented in this encounter Visit Diagnoses Not on filedocumented in this encounter Additional Health Concerns Assessment Noted Time PHQ-9 Depression Total Score: 23 11/12/ 023 9:35 AM EST documented as of this encounter Care Teams Highway Administrative Engineer Relationship Specialty Start Date End Date Kyra Lopez FNP [address] [place] [id number] PCP - General Family Medicine 05/29/22 documented as of this encounter
[2025-02-28 17:36] LABS: MANUAL DIFF FLAG NO
[2025-02-28 17:53] LABS: Estimated Average Glucose 326 mg/dL
[2025-02-28 18:03] LABS: Alanine Aminotransferase 15 U/L (0-31); Albumin Level 4.2 g/dL (3.5-5.0); Alkaline Phosphatase 96 U/L (39-117); Anion Gap 13 (12-20); Aspartate Amino Transferase 20 U/L (5-31); Bilirubin Total 0.3 mg/dL (0.0-1.0); Blood Urea Nitrogen 4 mg/dL (9-16); Calcium 9.1 mg/dL (8.4-10.2); Carbon Dioxide 26 mmol/L (22-29); Chloride 108 mmol/L (96-108); Cholesterol 154 mg/dL (<200); Estimated Glomerular Filt Rate > 60; Glucose Random 73 mg/dL (60-115); HDL Cholesterol 46 mg/dL (>40); LDL Cholesterol Calculated 92 mg/dL (<100); Potassium 3.7 mmol/L (3.3-5.1); Sodium 143 mmol/L (135-145); Triglycerides 83 mg/dL (<150)
[2025-02-28 18:20] LABS: TSH reflex Free T4 0.95 uIU/mL (0.32-4.0); Vitamin D 25-OH Total 33.7 ng/mL (>30)
[2025-02-28 18:36] LABS: Basophils Absolute Auto 0.1 X10*3/uL (0.0-0.2); Eosinophils Absolute Auto 0.4 X10*3/uL (0.0-0.4); Eosinophils Percent Auto 4.6 % (0-4); Hematocrit 42.7 % (37.0-47.0); Hemoglobin 14.2 g/dl (12.0-16.0); Imm Gran Abs Auto 0.05 X10*3/uL (0.00-0.03); Imm Gran Pct Auto 0.6 % (0.0-0.4); Lymphocytes Absolute Auto 2.8 X10*3/uL (1.2-4.9); Lymphocytes Percent Auto 31.4 % (20-40); Mean Corpuscular HGB Conc 33.3 g/dl (31.0-35.0); Mean Corpuscular Hemoglobin 26.9 pg (27.0-33.0); Mean Corpuscular Volume 80.9 fL (80.0-98.0); Mean Platelet Volume 10.6 fL (9.4-12.3); Monocytes Absolute Auto 0.6 X10*3/uL (0.1-1.2); Monocytes Percent Auto 6.1 % (2-11); Neutrophils Percent Auto 56.3 % (45-73); Platelet Count 307 X10*3/uL (160-400); Red Blood Count 5.28 X10*6/uL (4.20-5.50); Red Cell Distribution Width 16.4 % (11.0-16.0)
[2025-03-01 08:30] LABS: HIV AB/AG Nonreactive (Nonreactive); HIV Num 1 0.05 S/CO (0.00-0.99)
[2025-03-01 09:33] LABS: RPR Rapid Plasma Reagin NON-REACTIVE (NON-REACTIVE)
[2025-03-01 11:12] LABS: CT PCR NOT DETECTED (Not Detect.); NG PCR NOT DETECTED (Not Detect.)
[2025-03-01 20:49] LABS: HCV Log PCR <1.18 NOT DETECTED Log IU/mL (NOT DETECTED); HepC Viral Load <15 NOT DETECTED IU/mL (NOT DETECTED)
== END 2025-02-28 14:05 | disposition home or self-care (01) ==
LOC: HO.CHCLDS 14:04
PROVIDERS: Visit Provider Registered Nurse
DX: Z00.00 Encounter for general adult medical examination without abnormal findings (principal); Z13.1 Encounter for screening for diabetes mellitus; Z13.6 Encounter for screening for cardiovascular disorders
CPT/HCPCS: 36415; 80053; 80061; 82306; 83036; 84443; 85025; 86592; 87389; 87491; 87522; 87591

== ENCOUNTER 2025-03-17 14:36 | Outpatient (AMB) | payer OTHER, SELFPAY ==
--- NOTE | 2025-03-17 14:38 | MHC.OFFVIS ---
Vital Signs 03/17/25 14:42 Height 5 ft 2 in Weight 198 lb 8 oz BMI 36.3 BP 120/76 Blood Pressure Location Rt brachial Position Sitting Pulse 97 Pulse Source Pulse Oximeter Pulse Oximetry (%) 99 Oxygen Delivery Method Room Air Intake Visit Reasons: FU low back pain BAM 03/07/23 Intake Note: Pain today 8/10 Administrator Pesticide Required: Yes Administrator Pesticide Language: Software Developer Intern Services: Administrator Pesticide Present Administrator Pesticide Name: Max Accompanied by: Self / Same As Patient Allergies tizanidine Allergy (Intermediate, Verified 03/17/25 14:42) Swelling HPI Comments Details: The patient is a 54-year-old female presenting with chronic low back pain. This has been a longstanding issue for over 16 years, and has been worsening over the past 4-6 months. Patient also has polyarthralgia, positive REBECCA, bilateral carpal tunnel syndrome, fibromyalgia with widespread body pain, chronic knee pain and is a smoker. She underwent Left L4-L5 parasagittal interlaminar LANIE back in 2022 with minimal relief and was referred to Neurosurgery for evaluation of a potential discectomy due to a large herniated disc at L4-L5 with ligament hypertrophy but did not proceed with surgery at that time. Patient reports she was told to update her lumbar spine MRI per [facility], however states imaging was not ordered. She complains of persistent back pain with radiating pain to the left buttock and lateral hip, and to both the legs, worse on the left side with pulling, numbness and tingling sensations. Patient previously underwent multiple courses of physical therapy, with minimal or no pain relief. She rates her pain 8/10, worse with walking, bending or lifting. Denies any fever, unintentional weight loss, abdominal or groin pain, bladder or bowel dysfunction, or saddle anesthesia. Reports left lower extremity weakness due to pain which causes her to fall occasionally. The patient has a history of diabetes mellitus, with a recent hemoglobin A1c level of 13, indicating poor glycemic control. She is currently on metformin and Lantus insulin for diabetes management. PRIOR: Patient presents today to assess response to Left L4-L5 parasagittal interlaminar LANIE on 11/06/[address] Hager. Patient reports 30% pain relief since procedure with mild improvement in her mobility, daily activities, sleep and social interactions. She continues to experience spinal-stenosis related pain with walking, prolonged sitting or standing, has difficulty changing her positions and reports increase in pain with cold weather changes. Patient also has significant pain with lumbar extension. We previously discussed to consider MILD procedure if minimal pain relief with LANIE injections. Unfortunately, we are still awaiting for lumbar spine MRI imaging from [facility] radiology. I will send another request today. Patient reports radicular pain is more bothersome than axial. She continues to loose weight with diet but notes that due to back pain, her mobility is limited. Denies any recent cough, cold, infection, fever, bladder of bowel incontinence, saddle anesthesia or other significant changes in medical history since last office visit. Past Procedures: 11/06/22: Left L4-L5 parasagittal interlaminar LANIE-30% pain relief PRIOR: Patient is a pleasant 52 year old Fijian speaking female with a history of fibromyalgia and peripheral neuropathy present today with lower back pain and with pain all over her body. Reports chronic back pain for 15 years that has been worsening for the past 4 months. Denies any recent trauma, injury or falls. Lower back pain presents as axial but also radiates to the left lower extremity laterally and posteriorly with numbness and tingling in both feet and both hands. The pain is constant and is described as pinching, cramping, crushing, dull, sore, hurting, aching, heavy, tiring, exhausting, sharp, cutting, lacerating, hot burning, scalding, searing, tingling, stinging, tight, squeezing and tearing. Pain interferes with her daily activities, walking, standing, sitting, sleeping or social activities. Reports left lower extremity weakness and increased left leg pain with walking or bending forward. Denies previous spine surgery but has tried injections and those were without effect. Patient completed physical therapy in January 2022 without improvement in her symptoms. Lumbar spine MRI on 01/03/22 reviewed and are noted for moderate stenosis and left neuroforaminal narrowing at L4-L5 with ligament hypertrophy and mild Modic 2 endplate changes at L4-L5. Patient has been taking gabapentin and diclofenac potassium with partial relief. Reports swelling reaction with tizanidine. Patient denies any fever, chills, weight changes, dizziness, visual disturbances, bowel or bladder incontinence, or saddle anesthesia. Patient requests Hand specialist for bilateral carpal tunnel syndrome, right worse than left and has previously managed her bilateral hand pain with NSAIDs, OT/PT, and wrist immobilizers 5 years ago in [place]. She also reports bilateral reconstructive shoulder surgery and has residual neck pain and shoulder pain. Patient reports difficulty with opening or handling jars. [facility] Medical History Elevated sed rate REBECCA positive Pain in joint involving multiple sites Neuropathy, peripheral Fibromyalgia Migraine Pre-diabetes Sleep apnea GERD (gastroesophageal reflux disease) Foot fracture Asthma Hypothyroidism Surgical History H/O umbilical hernia repair H/O shoulder surgery Hx of section Family History Mother Hypothyroidism HTN (hypertension) Diabetes Father Esophagus cancer Brother Asthma Social History Household Members: Family Housing: Apartment Alcohol intake: never Patient Tobacco Use Status: Current someday Tobacco user Tobacco use type: Cigarette Cigarettes Per Day: 20 Years Smoked: 25 Current occupational status: disabled Current occupation: rt hand Female Reproductive History Menstrual Age of Menarche: 8 Review of Systems Const All systems reviewed & are unremarkable except as noted in HPI and below Physical Exam Vital Signs: Last Vital Signs Pulse 97 03/17/25 14:42 BP 120/76 03/17/25 14:42 Pulse Ox 99 03/17/25 14:42 Oxygen Delivery Method Room Air 03/17/25 14:42 BMI result Body Mass Index 36.3 General: Appears afebrile. Alert and oriented. Mood and affect appropriate. Follows and participates in conversation appropriately. Respiratory effort is unlabored. No cough. Able to transition from sit to stand unassisted. Ambulates with bilaterally normal heel strike and toe off, reports increased pain with heel>toe standing on the left. General: Yes no CVA tenderness Back/Spine/Pelvis Other: Limited lumbar ROM due to pain. Can flex forward to 65-70 degrees and extend to 5-10 degrees before experiencing lumbar pain, worse pain with lumbar flexion forward and bending. Demonstrates 4/5 left and 5/5 right strength of quadriceps as well as flexion/dorsiflexion of bilateral feet against resistance. 2+ pedal pulses bilaterally. Straight leg rise with dorsiflexion positive on the left. +1 patellar and diminished achilles reflexes bilaterally. Facet loading test positive bilaterally. Bobo signs positive bilaterally, mild right and moderate left tenderness in the projection of bilateral SI joints. +Matt's, Pelvic compression, Gaenslen's, and Stinchfield on the left. Multiple TTP 16/16 upper and lower exremeties bilaterally. Back: no CVA tenderness Cervical Spine: cervical ROM normal, cervical muscular tenderness, pain with cervical ROM and No Cervical spine tenderness Thoracic/Lumbar Spine: thoracic and lumbar spine normal to inspection, No Thoracic/lumbar spine scar(s), Lasegue's sign positive on the left and localized, pain with thoraco-lumbar ROM, paraspinal muscle tenderness, thoraco-lumbar ROM limited, thoraco-lumbar spasm, No thoracic spinal tenderness and lumbar spinal tenderness (L4-S1) Pelvis: buttock tenderness on the left Sacroiliac joints: bilaterally tender to palpation (left>right) Extrem General: Yes capillary refill normal, Yes no clubbing, cyanosis or edema and Yes no calf tenderness Results Reviewed Results Reviewed: Assessment & Plan Assessment & Plan (1) Peripheral neuropathy: Code(s): G62.9 - Polyneuropathy, unspecified Category: Medical (2) Lumbar degenerative disc disease: Code(s): M51.36 - Other intervertebral disc degeneration, lumbar region Category: Medical (3) Lumbar spondylosis: Code(s): M47.816 - Spondylosis without myelopathy or radiculopathy, lumbar region Category: Medical (4) Lumbar back pain with radiculopathy affecting left lower extremity: Code(s): M54.16 - Radiculopathy, lumbar region Category: Medical (5) Diabetes mellitus with polyneuropathy: Code(s): E11.42 - Type 2 diabetes mellitus with diabetic polyneuropathy Category: Medical (6) Spinal stenosis, lumbar region with neurogenic claudication: Code(s): M48.062 - Spinal stenosis, lumbar region with neurogenic claudication Category: Medical Plan Blood work was conducted after today's visit to reassess her glycemic control, A1C remains elevated, thus patient is not candidate for interventional treatments at this time, including therapeutic SIJ or LANIE injections. Patient's back pain is consistent with radiculopathy and spinal stenosis related pain and left SI joint pain. I emphasized the importance of managing her diabetes, advising her to adhere to ADA diet and to follow up with her diabetes care provider. In meantime, we will proceed with updating lumbar spine MRI to assess for neural integrity and compression and follow up on previous MRI findings. Patient will return to the clinic to discuss results of the MRI findings when it is done and consider interventional therapy (given improved A1C levels) vs Neurosurgery evaluation as indicated. Patient is aware to call if pain worsens or if she develops any red flag symptoms to seek emergency care. Patient denies any cauda equina syndrome symptoms at this time. All questions and concerns have been answered and patient agreed with the plan. Follow up for MRI results and sooner as needed. Patient was informed and verbally consented to the use of an ambient scribe for clinic note documentation during this visit Orders: Orders Comprehensive Met. Panel 03/17/25 E11.9 - Type 2 diabetes mellitus without complications, G62.9 - Polyneuropathy, unspecified MR lumbar spine wo con Today M47.816 - Spondylosis without myelopathy or radiculopathy, lumbar region, M48.062 - Spinal stenosis, lumbar region with neurogenic claudication, M51.36 - Other intervertebral disc degeneration, lumbar region, M54.16 - Radiculopathy, lumbar region Hemoglobin A1c 03/17/25 E11.9 - Type 2 diabetes mellitus without complications, G62.9 - Polyneuropathy, unspecified Coding Level of Care Code Est Pt Level 4 (89490) Complex EM visit Add On G2211 Diagnoses Peripheral neuropathy G62.9 Lumbar degenerative disc disease M51.36 Lumbar spondylosis M47.816 Lumbar back pain with radiculopathy affecting left lower extremity M54.16 Diabetes mellitus with polyneuropathy E11.42 Spinal stenosis, lumbar region with neurogenic claudication M48.062
[2025-03-17 14:42] VITALS: BP 120/76; PULSE 97; O2SAT 99; BMI 36.3
--- OUTSIDE RECORDS SUMMARY | 2025-03-17 15:56 | XMS_ITS | Encounter Summary ---
Author Organization [employer] Address [address] [facility] 7 [place] [address] Care Team Providers Care Semiconductor Equipment Technician Name Role Phone Kyra Lopez CHAVO Primary Care Provider [phone] Encounter Details Date Type Department Care Team (Late st Contact Info) Description 06/23/2023 Orders Only [facility] [address] [place], [place] [phone] Kimberly To Social History Tobacco Use Types [...] Description 06/02/2025 1:00 PM EDT Office Visit [facility] [address] [place], [place] [phone] Nandini Zelaya OD [address] [place] [address] 06/03/2025 1:45 PM EDT Office Visit [facility] [address] [place] [address] Kyra Lopez FNP [address] [place] [address] documented as of this encounter Procedures Procedure [...] documented as of this encounter Care Teams Semiconductor Equipment Technician Relationship Specialty Start Date End Date Kyra Lopez FNP [address] [place] [id number] PCP - General Family Medicine 05/29/22 documented as of this encounter
== END 2025-03-17 14:55 | disposition home or self-care (01) ==
LOC: HO.PMC 14:37
PROVIDERS: PCP Registered Nurse; Visit Provider Nurse Practitioner Family
DX: G62.9 Polyneuropathy, unspecified (principal); M51.369 Other intervertebral disc degeneration, lumbar region without mention of lumbar back pain or lower extremity pain; M47.816 Spondylosis without myelopathy or radiculopathy, lumbar region; M54.16 Radiculopathy, lumbar region; E11.42 Type 2 diabetes mellitus with diabetic polyneuropathy; M48.062 Spinal stenosis, lumbar region with neurogenic claudication
CPT/HCPCS: 99214; G2211

== ENCOUNTER 2025-03-17 14:36 | Outpatient (REF) | payer OTHER, SELFPAY ==
[2025-03-17 16:46] LABS: Estimated Average Glucose 266 mg/dL; Hemoglobin A1c % 10.9 % (<6.0); Total Hemoglobin (HGBA1C) 3916.5416 umol/L
[2025-03-17 17:04] LABS: Alanine Aminotransferase 12 U/L (0-31); Albumin Level 4.5 g/dL (3.5-5.0); Alkaline Phosphatase 80 U/L (39-117); Anion Gap 15 (12-20); Aspartate Amino Transferase 18 U/L (5-31); Bilirubin Total 0.5 mg/dL (0.0-1.0); Blood Urea Nitrogen 6 mg/dL (9-16); Calcium 9.8 mg/dL (8.4-10.2); Carbon Dioxide 29 mmol/L (22-29); Chloride 99 mmol/L (96-108); Estimated Glomerular Filt Rate > 60; Glucose Random 109 mg/dL (60-115); Potassium 4.1 mmol/L (3.3-5.1); Sodium 139 mmol/L (135-145); Total Protein 7.3 g/dL (6.5-8.0)
== END 2025-03-17 14:37 | disposition home or self-care (01) ==
LOC: HO.LAB 14:36
PROVIDERS: PCP Registered Nurse; Visit Provider Nurse Practitioner Family
DX: G62.9 Polyneuropathy, unspecified (principal); E11.9 Type 2 diabetes mellitus without complications; M54.16 Radiculopathy, lumbar region
CPT/HCPCS: 36415; 80053; 83036; 99212

== ENCOUNTER 2025-04-02 11:37 | Outpatient (REF) | payer OTHER, SELFPAY ==
--- NOTE | ~2025-04-02 | MR_ITS ---
CLINICAL HISTORY: M51.36 - Other intervertebral disc degeneration, lumbar region MR lumbar spine without contrast. COMPARISON: None provided. FINDINGS: Normal alignment of the anterior and posterior elements without evidence of subluxation. Vertebral heights are maintained. Marrow signal is benign. The conus terminates at inferior endplate of L1 and is otherwise unremarkable. Visualized portions of the sacrum are normal. L5-S1: Mild desiccation of the disc. Mild central disc bulge. Mild bilateral neural foraminal narrowing. L4-L5: Desiccation of the disc. Posterior disc annular tear. Central/left paracentral disc protrusion measuring 0.5 cm abuts the traversing L5 nerve root on the left. Facet joint arthrosis. Severe spinal canal stenosis measuring 0.6 cm. Mild right and moderate left neural foraminal narrowing. L3-L4: Intervertebral disc is normal in height. No significant disc bulge or central canal stenosis. L2-L3: Intervertebral disc is normal in height. No significant disc bulge or central canal stenosis. L1-L2: Intervertebral disc is normal in height. No significant disc bulge or central canal stenosis. The visualized paraspinal musculature and retroperitoneal soft tissues are unremarkable. IMPRESSION: 1. Central/left paracentral disc protrusion at L4-L5 abuts the traversing L5 nerve root on the left. 2. Severe spinal canal stenosis at L4-L5. This document has been electronically signed by: Sp Abad MD on 04/02/2025 19:55:38
--- OUTSIDE RECORDS SUMMARY | 2025-04-02 11:39 | XMS_ITS | Encounter Summary ---
Author Organization [employer] Address [address] [facility] 7 [place] [address] Care Team Providers Care Protocol Manager Name Role Phone Kyra Lopez CHAVO Primary Care Provider [phone] Encounter Details Date Type Department Care Team (Late st Contact Info) Description 06/23/2023 Orders Only [facility] [address] [place], [place] [phone] Kimberly To Social History Tobacco Use Types [...] Description 06/02/2025 1:00 PM EDT Office Visit [facility] [address] [place], [place] [phone] Nandini Zelaya, JASON [address] [place] [address] 06/03/2025 1:45 PM EDT Office Visit [facility] [address] [place] [address] Kyra Lopez FNP [address] [place] [address] documented as of this encounter Procedures Procedure [...] documented as of this encounter Care Teams Protocol Manager Relationship Specialty Start Date End Date Kyra Lopez FNP [address] [place] [id number] PCP - General Family Medicine 05/29/22 documented as of this encounter
== END 2025-04-02 11:38 | disposition home or self-care (01) ==
LOC: HO.MRI 11:37
PROVIDERS: PCP Registered Nurse; Visit Provider Nurse Practitioner Family
DX: M47.816 Spondylosis without myelopathy or radiculopathy, lumbar region (principal); M54.16 Radiculopathy, lumbar region; M48.062 Spinal stenosis, lumbar region with neurogenic claudication
CPT/HCPCS: 72148

== ENCOUNTER → 2025-04-02 11:53 | Outpatient (BNV) | payer OTHER, SELFPAY | PROVIDERS: PCP Registered Nurse; Visit Provider Radiology Diagnostic Radiology | DX: M48.061 Spinal stenosis, lumbar region without neurogenic claudication (principal) | CPT/HCPCS: 72148 ==

== ENCOUNTER 2025-05-17 10:45 | Outpatient (AMB) | payer OTHER, SELFPAY ==
[2025-05-17 10:57] VITALS: BMI 33.8
--- NOTE | 2025-05-17 10:57 | A.SPINEOV_ITS ---
Vital Signs 05/17/25 10:57 Height 5 ft 2 in Weight 185 lb BMI 33.8 Intake Visit Reasons: Severe spinal canal stenosis at L4-L5 Intake Note: Ms. Chris Olivas is here today c/o neck and low back pain, radiates to arms. Logistics Loss Prevention Manager Required: Yes Logistics Loss Prevention Manager Services: Logistics Loss Prevention Manager Present Logistics Loss Prevention Manager Name: Ana Russell LM Allergies tizanidine Allergy (Intermediate, Verified 05/17/25 11:00) Swelling Physical Exam Vital Signs: BMI result Body Mass Index 33.8 Assessment & Plan Assessment & Plan (1) Lumbar back pain with radiculopathy affecting left lower extremity: Code(s): M54.16 - Radiculopathy, lumbar region Category: Medical Plan Mrs Olivas is a very nice 54-year-old female who came in today for evaluation of a lumbar spine issue that has been going on for many many years. I did this visit with the help of my medical transcription supervisor Ana Garcia, certified biomedical manager for [place]. She tells us that she has had an issue with her back for a long time but over the last few years has had progression of her symptoms where she is having bilateral lower extremity pain, left greater than right. It radiates from her back down into both of her legs, into her posterolateral thighs and goes into her calf. She has diabetic neuropathy so she has numbness of her feet in the tips of her toes. The pain is aggravated with standing and walking, it does get better when she is seated but does not necessarily go away. She also has a history of fibromyalgia. She takes ibuprofen, methocarbamol, gabapentin and duloxetine to help with the pain. She has done injections in the past in [place] as well as here in [place] pain management but these did not have any lasting effects. She did physical therapy at some point as well without any relief. She comes in today with an MRI showing multiple levels of degeneration of her discs as well as stenosis of the lumbar spine at L4-5 rate it as severe by the radiologist. PMH: She is a diabetic but very poorly controlled, her A1c was 13 earlier this year with a follow-up number at 10 in February. History of peripheral neuropathy, she had a thyroid mass removed in his been on supplementation, sleep apnea, asthma, anxiety, depression, arthritis, umbilical hernia when she was very young , 2 C sections, shoulder surgery bilaterally and right knee surgery. Denies any history of heart attacks, strokes, pulmonary problems, liver or kidney disease. Denies any major abdominal surgery. No history of bleeding disorders or blood clots. Social hx: She smokes about a pack of cigarettes a day, does not use any recreational drugs or drink any alcohol. Medications: Metformin, Lantus, levothyroxine, diclofenac, duloxetine, Flonase, gabapentin, hydroxyzine, levothyroxine, omeprazole, Topamax Allergies: Please see the [facility] list Physical exam: She is awake alert oriented, no acute distress, strength in the upper and lower extremities is full, reflexes normal in the upper extremities, absent in the lower extremities. Imaging review: There is a lumbar MRI done at [facility] which shows good height of her discs with no evidence of misalignment or Modic endplate changes. There is no evidence of fractures or acute herniated disc. On the left however there is a disc bulge which is causing compression in the lateral recess on the left L5 nerve. Impression: 54-year-old female presents for evaluation of chronic back pain with bilateral lower extremity pain left greater than right in the setting of what looks like lateral recess stenosis on the left at L4-5. I disagree with the radiologist in the severity of the stenosis. I do not see anything compress ing the nerves on the right. I am not sure how to explain all of her pain but I do think the left leg pain could be explained by the nerve compression. However though in the setting of such an elevated A1c with her diabetes, this would preclude her from surgery. It is also well-known that uncontrolled diabetes can also cause a polyneuropathy that can present with leg pain. So that maybe overlapping the issues with the lumbar spine. Either way, I told her that with her A1c so elevated we would need to see it closer to 7 before we could consider surgery so as to cut down the risk of complications, the main complication being risk of postoperative infection. She understands, and she is going to follow up with her PCP to see if there is more they can do to control the A1c. She has been trying to change her diet. Obviously exercises very limited secondary to pain and discomfort. She will call us back when she is able to get the numbers under better control and at that time I can review with Dr. Núñez all the imaging and develop a surgical plan for her. Thank you for allowing us to care for your patient. The total time spent with this visit with this patient was 45 minutes reviewing history, physical exam, lumbar imaging review, and implementation of treatment plan or further diagnostic testing Arvin Núñez MD,PhD [facility] Coding Level of Care Code New Pt Level 4 (59212) Diagnoses Lumbar back pain with radiculopathy affecting left lower extremity M54.16
--- OUTSIDE RECORDS SUMMARY | 2025-05-17 12:16 | XMS_ITS | Encounter Summary ---
Author Organization [employer] Address [address] [facility] [address] [place] [address] Care Team Providers Care Fleet Mechanic Name Role Phone Kyra Lopez CHAVO Primary Care Provider [phone] Encounter Details Date Type Department Care Team (Late st Contact Info) Description 06/23/2023 Orders Only [facility] [address] [place], [place] [phone] Kimberly To Social History Tobacco Use Types [...] 1:00 PM EDT Office Visit [facility] [address] [place], [place] [phone] Nandini Zelaya OD [address] [place] [address] 06/03/2025 1:45 PM EDT Office Visit [facility] [address] [place] [address] Kyra Lopez FNP [address] [place] [address] documented as of this encounter Procedures Procedure [...] documented as of this encounter Care Teams Fleet Mechanic Relationship Specialty Start Date End Date Kyra Lopez FNP [address] [place] [id number] PCP - General Family Medicine 05/29/22 documented as of this encounter
== END 2025-05-17 11:41 | disposition home or self-care (01) ==
LOC: HO.HNS 10:46
PROVIDERS: PCP Registered Nurse; Visit Provider Physician Assistant
DX: M54.16 Radiculopathy, lumbar region (principal)
CPT/HCPCS: 99204

== ENCOUNTER → 2025-05-17 10:45 | Outpatient (BNVA) | payer OTHER, SELFPAY | PROVIDERS: PCP Registered Nurse; Visit Provider Physician Assistant | DX: M54.16 Radiculopathy, lumbar region (principal); G89.29 Other chronic pain; E11.9 Type 2 diabetes mellitus without complications | CPT/HCPCS: 99202 ==

== ENCOUNTER 2025-07-06 10:32 | Outpatient (AMB) | payer OTHER, SELFPAY ==
--- NOTE | 2025-07-06 11:38 | A.OFFVIS_ITS ---
VS Expanded 07/06/25 11:39 Height 5 ft 2 in Weight 207 lb 3.752 oz BMI 37.9 Intake Visit Reasons: Type 2 diabetes mellitus without complications Allergies tizanidine Allergy (Intermediate, Verified 07/06/25 10:47) Swelling Nutrition Presentation Details: Pt presents for MNT for T2DM Pt reports lacking meal routine food frequency fruits: 0-1/d vex/wk dairy: 0-2/d fish :0-1/wk starches ++ beverages: water, low sugar beverages, coffee/tea physicla activities: aDL BS Monitoring Most Recent Diabetes Results: Creatinine, (0.5-1.4) 0.68 mg/dL 03/17/25 BUN, (9-16) 6 mg/dL L 03/17/25 Sodium, (135-145) 139 mmol/L 03/17/25 Potassium, (3.3-5.1) 4.1 mmol/L 03/17/25 Chloride, (96-108) 99 mmol/L 03/17/25 Carbon Dioxide, (22-29) 29 mmol/L 03/17/25 Calcium, (8.4-10.2) 9.8 mg/dL Δ 03/17/25 AST, (5-31) 18 U/L 03/17/25 ALT, (0-31) 12 U/L 03/17/25 Total Protein, (6.5-8.0) 7.3 g/dL 03/17/25 Albumin, (3.5-5.0) 4.5 g/dL 03/17/25 MBH-Bhdeysh-Gl.Jeor Equation Height: 5 ft 2 in Weight: 207 lb Resting Metabolic Rate: 1490.65 Calculated Activity Level: Sedentary Calories Needed to Maintain Weight: 1788.78 Diagnosis Nutrition problem #1: food nutri know defi As related to (etiology) #1: diagnosis As evidenced by (sign/symptom) #1: knowledge deficit of diet [facility] Medical History Elevated sed rate REBECCA positive Pain in joint involving multiple sites Neuropathy, peripheral Fibromyalgia Migraine Pre-diabetes Sleep apnea GERD (gastroesophageal reflux disease) Foot fracture Asthma Hypothyroidism Surgical History H/O umbilical hernia repair H/O shoulder surgery Hx of section Family History Mother Hypothyroidism HTN (hypertension) Diabetes Father Esophagus cancer Brother Asthma Social History Household Members: Family Housing: Apartment Alcohol intake: never Patient Tobacco Use Status: Current someday Tobacco user Tobacco use type: Cigarette Cigarettes Per Day: 20 Years Smoked: 25 Current occupational status: disabled Current occupation: rt hand Female Reproductive History Menstrual Age of Menarche: 8 Assessment & Plan Assessment & Plan (1) Type 2 diabetes mellitus: Code(s): E11.9 - Type 2 diabetes mellitus without complications Category: Medical Plan: current wt: 94 kg (07/23 ) est kcal needs as per MSJ: 1800 est protein needs as per 1 g/kg BW: 90 est fluid needs as per 30 ml/kg BW:2800 Recommended fiber > 12 g /day and gradually increase up to 25-28 g /day or as tolerated Nutrition topics discussed : Reviewed (R), Pt verbalized understanding (V) , not applicable (N/A) R, : Healthy Plate Method Concept: R, : Carbohydrates: food sources of carbohydrates, relationship of carbohydrates to blood glucose, fatty liver GI health. Recommended total amount of carbohydrates per meals and snack. Differences between simple carbohydrates and complex carbohydrates R, V, N/A: Lean protein foods including vegan , vegetarian sources of protein. Benefits of protein (including but not limited to healing, nutritional value , benefits in weight loss, glucose control R, V, N/A: Fats : Source of fats, benefits of fats. Difference between saturated and unsaturated fats. Saturated fats and its contribution to inflammation R, V, N/A: Fiber: food sources and role of fiber in the diet (including but not limited to its role as a prebiotic, benefits in constipation, role in IBS , role in glucose control and cholesterol level) R, V, N/A: Hydration: role of hydration and prevention of dehydration or over hydration. Foods and water content. R, V, N/A: Vitamins and Minerals in foods and supplements R, CARBS/prot: Interpreting food labels, including serving size, macronutr ients, vitamins, minerals, allergens, ingredient list , % daily value Patient Instructions: Choose whole grain foods ,w orking on reducing total carb at meals less than 60 g following healthy plate method Coding Level of Care Code Nutr Indiv Intake (23560) Diagnoses Type 2 diabetes mellitus E11.9 Time Spent (min) 30
[2025-07-06 11:39] VITALS: BMI 37.9
[2025-07-07 21:10] VITALS: BMI 37.9
== END 2025-07-06 12:16 | disposition home or self-care (01) ==
LOC: HO.ENCR 10:32
PROVIDERS: PCP Registered Nurse; Visit Provider Dietitian, Registered
DX: E11.9 Type 2 diabetes mellitus without complications (principal)

== ENCOUNTER 2025-07-06 10:32 | Outpatient (AMB) | payer OTHER, SELFPAY ==
[2025-07-06 10:36] VITALS: BP 122/72; PULSE 87; O2SAT 98; BMI 38.1
--- NOTE | 2025-07-06 10:36 | A.OFFVIS_ITS ---
Vital Signs 07/06/25 10:36 Height 5 ft 2 in Weight 208 lb 5.389 oz BMI 38.1 BP 122/72 Blood Pressure Location Lt brachial Position Sitting Pulse 87 Pulse Source Pulse Oximeter Pulse Oximetry (%) 98 Oxygen Delivery Method Room Air Intake Visit Reasons: Type 2 diabetes mellitus without complications Intake Note: New patient internally referred by PCP for T2DM. Last Diabetic Eye exam: Patient states on 06/03/2025? Last Podiatry Visit: Patient has a referral, waiting for appointment. Random Glucose:183 mg/dl Hgb A1C: DUE Investor Relations Manager Required: Yes Investor Relations Manager Language: Mortgage Loan Processor Services: Investor Relations Manager Present Investor Relations Manager Name: Hannah Accompanied by: Self / Same As Patient Allergies tizanidine Allergy (Intermediate, Verified 07/06/25 10:47) Swelling Medication List - Last Reconciled 07/06/25 by Alvarado Steven MD albuterol sulfate 90 mcg/actuation (ProAir HFA) 2 puffs PO Q4-6H PRN bisacodyl (Dulcolax (bisacodyl)) 10 mg (2 x 5 mg) PO BEDTIME 2 days diclofenac potassium 50 mg PO BID duloxetine 60 mg PO DAILY duloxetine 30 mg PO DAILY fluticasone propionate 110 mcg/actuation (Flovent HFA) 1 puff PO BID gabapentin 600 mg PO BID hydroxyzine HCl 25 mg PO PRN ibuprofen 800 mg PO TID insulin glargine (Lantus U-100 Insulin) 15 units subcut BID levothyroxine 100 mcg PO QAM metformin 500 mg PO BID methocarbamol 750 mg PO BID PRN 30 days naproxen 500 mg PO BID PRN 7 days naproxen 500 mg PO BID PRN omeprazole 20 mg PO DAILY oxycodone 10 mg PO Q8H PRN 3 days topiramate 25 mg PO DAILY HPI Comments Details: 54 YO F who is seen in consultation for T2DM at the request of PCP. Initially diagnosed with T2DM in 01/2025 . Never Saw endo for diabetes Was initially started on treatment with metformin . Current regimen 18 units Lantus . metformin 500 mg BID Checks sugars 1 times per day. Unfortunately did not bring gluometer or logbook to visit Most recent A1C 7.4 , [down] from prior [] on []. No hypoglycemia Family history of T2DM in mother . Brother, sister Has eyes checked yearly, last eye exam 06/02/2025 , denies retinopathy. Has neuropathy,, not sees podiatry. Denies nephropathy, Not on ASAD/ARB. UAC [] as measured on []. Has HLD, on statin. Last LDL [] as measured on []. Denies CAD. Not Had diabetes education. [facility] Medical History Elevated sed rate REBECCA positive Pain in joint involving multiple sites Neuropathy, peripheral Fibromyalgia Migraine Pre-diabetes Sleep apnea GERD (gastroesophageal reflux disease) Foot fracture Asthma Hypothyroidism Surgical History H/O umbilical hernia repair H/O shoulder surgery Hx of section Family History Mother Hypothyroidism HTN (hypertension) Diabetes Father Esophagus cancer Brother Asthma Social History Household Members: Family Housing: Apartment Alcohol intake: never Patient Tobacco Use Status: Current someday Tobacco user Tobacco use type: Cigarette Cigarettes Per Day: 20 Years Smoked: 25 Current occupational status: disabled Current occupation: rt hand Female Reproductive History Menstrual Age of Menarche: 8 Physical Exam Vital Signs: Last Vital Signs Pulse 87 07/06/25 10:36 BP 122/72 07/06/25 10:36 Pulse Ox 98 07/06/25 10:36 Oxygen Delivery Method Room Air 07/06/25 10:36 BMI result Body Mass Index 38.1 Absence of Cushingoid features. Absence of acromegalic features. Neck exam reveals nl size thyroid about 15 gms. No thyroid nodules palpable. No carotid bruits present. Lungs CTA. Heart S1 S2, Reg R/R. No M/R/ G. Skin exam reveals absence of vitiligo or acanthosis nigricans. Abdominal exam reveals Soft NT/ND with NA BS. No organomegaly present. Neck Other: . Extrem Other: Visual exam of foot performed. No ulcerations or open lesions. No onchomycosis, no callouses.Pulses 2 + distally Sensation intact to monofilament exam on Left but not right . Vibratory sensation sensed is decreased L>R with 128 Hz tuning fork Results AMB Hemoglobin A1c AMB Hemoglobin A1c 7.4 % Last Edit by Kristina Sampson CMA on 07/06/25 11:13 Results Reviewed Results Reviewed: Laboratory Last Values Glucose (Clinic) 183 mg/dL (60-115) H 07/06/25 10:59 Assessment & Plan Assessment & Plan (1) Diabetes mellitus with polyneuropathy: Code(s): E11.42 - Type 2 diabetes mellitus with diabetic polyneuropathy Category: Medical Plan: This 54-year-old female with a history of type 2 diabetes without ph armacologic treatment with poor glycemic control and known microvascular macrovascular complications namely neuropathy and peripheral vascular disease. Plan is to have the patient check her point of cares pre and post meals or to initiate a sensor namely Donavon 3+ we will this may not be covered by insurance. We will send to certified lactation educator and buffing machine operator semiautomatic. We will check microalbumin to creatinine ratio. Went over the relationship a poor glycemic control to development and progression of complications with patient. We will have patient follow up with primary care diabetes team in 6 weeks Orders: Orders AMB Hemoglobin A1c Today E11.9 - Type 2 diabetes mellitus without complications Referrals Podiatry Referral E11.42 - Type 2 diabetes mellitus with diabetic polyneuropathy Diabetes Education Referral E11.42 - Type 2 diabetes mellitus with diabetic polyneuropathy Nutrition/Dietitian Referral E11.42 - Type 2 diabetes mellitus with diabetic polyneuropathy Medications: New blood-glucose sensor (FreeStyle Donavon 3 Plus Sensor device) As directed change every 15 days 2 ea 4RF Coding Level of Care Code New Pt Level 5 (52354) Diagnoses Diabetes mellitus with polyneuropathy E11.42 Time Spent (min) 60
[2025-07-06 11:04] LABS: Glucose, Whole Blood 183 mg/dL (60-115)
== END 2025-07-06 11:32 | disposition home or self-care (01) ==
LOC: HO.ENCR 10:32
PROVIDERS: PCP Registered Nurse; Visit Provider Internal Medicine Endocrinology, Diabetes & Metabolism
DX: E11.42 Type 2 diabetes mellitus with diabetic polyneuropathy (principal); Z79.4 Long term (current) use of insulin
CPT/HCPCS: 99205

== ENCOUNTER → 2025-07-06 10:32 | Outpatient (BNVA) | payer OTHER, SELFPAY | PROVIDERS: PCP Registered Nurse; Visit Provider Dietitian, Registered | DX: Z71.3 Dietary counseling and surveillance (principal); E11.42 Type 2 diabetes mellitus with diabetic polyneuropathy | CPT/HCPCS: 82947; 83036; 97802; 99202 ==

== ENCOUNTER 2025-07-25 12:51 | Outpatient (AMB) | payer OTHER, SELFPAY ==
--- NOTE | 2025-07-25 12:55 | A.OFFVIS_ITS ---
Vital Signs 07/25/25 13:01 Height 5 ft 2 in Weight 207 lb BMI 37.9 Intake Visit Reasons: Type 2 diabetes mellitus with diabetic polyneuropa Intake Note: kris is a 55 year old female who presents today as a new patient for a diabetic foot exam. Her last known glucose was 149 as of yesterday and her last reported A1cs was 7.4%. Patient reports bilateral numbness and tingiling without burning. she has no history of wounds or injuries to her feet and patient mentions she is currently diagnosed with lumbar stenosis and is waiting on surgery. Patient is currently taking gabapentin. Back Hanger Required: Yes Back Hanger Services: Back Hanger Present Back Hanger Name: [id number] Allergies tizanidine Allergy (Intermediate, Verified 07/25/25 13:01) Swelling HPI HPI Type 2 diabetes mellitus with diabetic polyneuropa: Details: The patient is a 55-year-old female past medical history of diabetes mellitus type 2, spinal stenosis, CATHERINE, GERD, PVD, here for initial diabetic foot evaluation. She notes recent improvements noted in her glycemic control, as her hemoglobin A1c has decreased to around 7%. She experiences peripheral neuropathy characterized by tingling, cramps, and numbness in her feet, which began approximately two and a half years ago. She is awaiting surgical intervention pending further improvement in her A1c levels. Social History: - The patient smokes one pack daily, which may contribute to her neuropathic symptoms. [facility] Medical History Elevated sed rate REBECCA positive Pain in joint involving multiple sites Neuropathy, peripheral Fibromyalgia Migraine Pre-diabetes Sleep apnea GERD (gastroesophageal reflux disease) Foot fracture Asthma Hypothyroidism Surgical History H/O umbilical hernia repair H/O shoulder surgery Hx of section Family History Mother Hypothyroidism HTN (hypertension) Diabetes Father Esophagus cancer Brother Asthma Social History Household Members: Family Housing: Apartment Alcohol intake: never Patient Tobacco Use Status: Current someday Tobacco user Tobacco use type: Cigarette Cigarettes Per Day: 20 Years Smoked: 25 Current occupational status: disabled Current occupation: rt hand Female Reproductive History Menstrual Age of Menarche: 8 Review of Systems Const All systems reviewed & are unremarkable except as noted in HPI and below Physical Exam Vital Signs: BMI result Body Mass Index 37.9 Extrem Other: *Bilateral Lower Extremity Focused Diabetic Foot Exam Vascular: DP/PT 1/4, CFT<3s to digits, TG warm to cool, no pedal edema, pedal hair absent Derm: Skin: annular scaling bilateral feet Interdigital spaces: Clear, no maceration or fungal infection. Nails: Dystrophic, thickened, discolored, elongated nails with subungual debris x10 Neuro: [place]-azael monofilament (10g) test 0/10 intact to right foot, 0/10 intact to left foot. Msk: Deformities: No evidence of hammertoes, bunions, Charcot changes, or other structural abnormalities. Muscle strength: 5/5 in all muscle groups. Gait: Normal, no antalgic or steppage gait observed. Footwear Assessment: Shoes inspected; appropriate fit, no excessive wear, or foreign objects noted. Office Procedures AMB Debridement /Avulsion Details: Procedure: Nail debridement Location: 10 nails, bilateral feet Anesthesia: N/A Description: The affected toenails were cleansed with an antiseptic solution. Using sterile nail nippers and a rotary te, dystrophic and mycotic nail material was carefully debrided and reduced in thickness. Care was taken to avoid trauma to the surrounding skin and nail bed. All debris was removed as tolerated. The area was inspected for signs of infection or ulceration. Patient tolerated the procedure well without complications. Tolerance: Patient tolerated procedure well, no immediate complications. Class B findings as per physical exam findings above. The patient has a diagnosis of diabetes mellitus and presents with elongated, thickened toenails. Due to underlying diabetic neuropathy and mild vascular disease findings, the patient is at increased risk for complications such as ulceration, infection, and difficulty with self-care. Debridement of elongated toenails is medically necessary to prevent development of pressure-related lesions, reduce risk of secondary infection, and maintain foot health in high- risk comorbidities. [id number] of Nail 6+ Procedure code (CPT) selection complete Results Reviewed Results Reviewed: Laboratory Tests 02/28/25 03/17/25 07/06/25 14:07 15:16 11:11 Hgb A1c (Clinic) 7.4 H Hemoglobin A1c % 13.0 H 10.9 H Assessment & Plan Assessment & Plan (1) Diabetes mellitus with polyneuropathy: Code(s): E11.42 - Type 2 diabetes mellitus with diabetic polyneuropathy Category: Medical Qualifiers: Diabetes mellitus type: type 2 Qualified Code(s): E11.42 - Type 2 diabetes mellitus with diabetic polyneuropathy Plan: Risk Stratification: No current ulceration, infection, or pre-ulcerative lesion. Severe loss of protective sensation, with clinical signs of mild peripheral arterial disease. No plans for further testing/referrals for non-invasive vascular studies. Patient is at moderate risk for diabetic foot complications at this time. Recommendations: Continue routine foot care and daily self-inspection. Recommend moisturizing daily. Recommend supportive proper fitting shoe-wear. The patient may require diabetic shoes in the future. Reinforced diabetic foot education and risks from peripheral neuropathy. (2) Peripheral vascular disease: Code(s): I73.9 - Peripheral vascular disease, unspecified Category: Medical Plan: * continue to monitor (3) Onychogryphosis: Code(s): L60.2 - Onychogryphosis Category: Medical Plan: * debrided nails x10 using sterile nail nippers (4) Tinea pedis: Code(s): B35.3 - Tinea pedis Category: Medical Qualifiers: Laterality: bilateral Qualified Code(s): B35.3 - Tinea pedis Plan: * Rx Clotrimazole Medications: New clotrimazole 1% (Athlete's Foot (clotrimazole)) Apply to bottom of feet twice a day. 1 appl topical BID 15 grams 3RF athlete's foot 4 weeks B35.3 - Tinea pedis Coding Level of Care Code New Pt Level 4 (76517) Diagnoses Diabetic polyneuropathy associated with type 2 diabetes mellitus E11.42 Diabetes mellitus type: type 2 Peripheral vascular disease I73.9 Onychogryphosis L60.2 Tinea pedis of both feet B35.3 Laterality: bilateral Time Spent (min) 35
[2025-07-25 13:01] VITALS: BMI 37.9
--- OUTSIDE RECORDS SUMMARY | 2025-07-25 16:19 | XMS_ITS | Encounter Summary ---
Author Organization [employer] Address [address] [facility] [address] [place] [address] Care Team Providers Care Intake Assessor Name Role Phone Kyra Lopez Primary Care Provider [phone] Reason for Visit * Reason Onset Date Comments Med Refill 11/18/2024 Encounter Details Date Type Department Care Team ([facility] st Contact Info) Description 11/18/2024 Refill [facility] [address] [facility] [place] [address] Kyra Lopez FNP [address] [place] [address] Mild intermittent asthma without complication; Fibromyalgia; Chronic midline low back pain with bilateral sciatica Social History Tobacco Use Types Packs/Day Years Used Date Smoking Tobacco: Every Day Cigarettes Smokeless Tobacco: Never Alcohol Use Standard Drinks/Week Comments Never 0 (1 standard drink = 0.6 oz pur e alcohol) Depression Answer Date Recorded Patient Health Questionnaire-9 Score 23 11/12/2022 Housing Stability Answer Date Recorded What is your housing situation today? I have nilesh lara 11/21/[address] you li ve. Do you have problems with any of the following? None of the above 11/21/2023 Food Insecurity Answer Date Recorded Within the past 12 months, y ou worried that your food would run out before you got money to buy more: Sometimes True 2023 Within the past 12 months,th e food you bought just didn't last and you didn't have enough money to get more: Sometimes True 12/01/2023 Transportation Answer Date Recorded In the past 12 months, has l ack of transportation kept you from medical appts, meetings, work or from getting things needed for daily living? No 07/20/2023 Utilities Answer Date Recorded In the past 12 months, has t he electric, gas, oil or water company threatened to shut off services in your home? No 07/20/2023 Depression Answer Date Recorded Patient Health Questionnaire-2 Score 6 11/12/2022 Comments Unknown Sex and Gender Information Value Date Recorded Sex Assigned at Female 07/29/2022 10:35 AM EDT Legal Sex Female 10:35 AM EDT Gender Identity Female 07/29/2022 10:35 AM EDT Sexual Orientation Straight 07/29/2022 10 :35 AM EDT documented as of this encounter Miscellaneous Notes * Telephone Encounter - CHAVO Faulkner - 11/18/2024 7:45 PM EST All med sent in but topiramate. I don't see that topiramate has been sent in by us in the past 2 years. If this is new start, she will need appt to further discuss. OK for tele if needed. Sending to [facility]/team nurses for outreach. Thanks! * Telephone Encounter - Reba Blank - 11/18/2024 11:26 AM EST TC from pt requesting medication refill. Medications needing refill : albuterol (Ventolin HFA) 108 (90 Base) MCG/ACT inhaler DULoxetine (Cymbalta) [address] capsule DULoxetine (Cymbalta) [address] capsule Mometasone Furoate (Asmanex HFA) 100 MCG/ACT aerosol tiZANidine (Zanaflex) 4 MG tablet topiramate (Topamax) 25 MG tablet To be sent to: [facility]/pharmacy #[id number] - [place], [place] - [address] [place] [address] documented in this encounter Plan of Treatment Not on file documented as of this encounter Visit Diagnoses Diagnosis Mild intermittent asthma without complication Fibromyalgia Unspecified myalgia and myositis Chronic midline low back pain with bilateral sciatica documented in this encounter Additional Health Concerns Assessment Noted Time PHQ-9 Depression Total Score: 23 023 9:35 AM EST documented as of this encounter Care Teams Intake Assessor Relationship Specialty Start Date End Date Kyra Lopez FNP [address] [place] [address] PCP - General Family Medicine 05/29/22 documented as of this encounter
--- OUTSIDE RECORDS SUMMARY | 2025-07-25 16:19 | XMS_ITS | Encounter Summary ---
Author Organization [employer] Address [address] [facility] [address] [place] [address] Care Team Providers Care Telegrapher Agent Name Role Phone Kyra Lopez Primary Care Provider [phone] Reason for Visit * Reason Comments Med Refill Encounter Details Date Type Department Care Team ([facility] st Contact Info) Description 09/26/2022 Refill [facility] [address] [place] [address] Jocelyn Morse MD [address] [place] [address] Chronic midline low back pain with bilateral sciatica Social History Tobacco Use Types Packs/Day Years Used Date Smoking Tobacco: Every Day Cigarettes Smokeless Tobacco: Never Alcohol Use Standard Drinks/Week Comments Never 0 (1 standard drink = 0.6 oz pur e alcohol) Comments Unknown Sex and Gender Information Value Date Recorded Sex Assigned at Female 07/29/2022 10:35 AM EDT Legal Sex Female 10:35 AM EDT Gender Identity Female 07/29/2022 10:35 AM EDT Sexual Orientation Straight 07/29/2022 10 :35 AM EDT COVID-19 Exposure Response Date Recorded In the last 10 days, have yo u been in contact with someone who was confirmed or suspected to have Coronavirus/COVID-19? No / Unsure 09/13/2022 1:59 PM EST documented as of this encounter Plan of Treatment Not on file documented as of this encounter Visit Diagnoses Diagnosis Chronic midline low back pain with bilateral sciatica documented in this encounter Care Teams Telegrapher Agent Relationship Specialty Start Date End Date Kyra Lopez FNP [address] [place] [address] PCP - General Family Medicine 05/29/22 documented as of this encounter
--- OUTSIDE RECORDS SUMMARY | 2025-07-25 16:19 | XMS_ITS | Encounter Summary ---
Author Organization [employer] Address [address] [facility] [address] [place] [address] Care Team Providers Care Chemical Etch Operator Name Role Phone HaleyKyra sargent CHAVO Primary Care Provider [phone] Encounter Details Date Type Department Care Team ([facility] Contact Info) Description 08/14/2023 Abstract [facility] [address] [place], [place] [id number] Kimberly To Social History Tobacco Use Types Packs/Day Years Used Date Smoking Tobacco: Every Day Cigarettes Smokeless Tobacco: Never Alcohol Use Standard Drinks/Week Comments Never 0 (1 standard drink = 0.6 oz pur e alcohol) Depression Answer Date Recorded Patient Health Questionnaire-9 Score 23 11/12/2022 Housing Stability Answer Date Recorded What is your housing situation today? I have housing today, but I am worried about losing housing in the future 07/10/[address] you li ve. Do you have problems with any of the following? Water leaks;Mold;Oven or stove not working 07/10/2023 Food Insecurity Answer Date Recorded Within the past 12 months, y ou worried that your food would run out before you got money to buy more: Never True 07/20/2023 Within the past 12 months,th e food you bought just didn't last and you didn't have enough money to get more: Never True Transportation Answer Date Recorded In the past [...] on file documented as of this encounter Procedures Procedure Name Priority Date/Time Associated Diagnosis Comments COLONOSCOPY Routine 09/28/2021 documented in this encounter Results * Hm Colonoscopy (09/28/2021) Colonoscopy Normal Normal Narrative Kimberly To - 09/28/2021 Recommended 5 year follow up due to family history of polyos Historical Provider HEALTH MAINTENANCE Final Result documented in this encounter Visit Diagnoses Not on filedocumented in this encounter Additional Health Concerns Assessment Noted Time PHQ-9 Depression Total Score: 23 023 9:35 AM EST documented as of this encounter Care Teams Chemical Etch Operator Relationship Specialty Start Date End Date Kyra Lopez FNP [address] [place] [address] PCP - General Family Medicine 05/29/22 documented as of this encounter
--- OUTSIDE RECORDS SUMMARY | 2025-07-25 16:19 | XMS_ITS | Clinical Summary ---
Author Organization [employer] Address [address] [facility] [address] [place] [address] Care Team Providers Care Coding Clerk Name Role Phone HaleyKyra sargent CHAVO Primary Care Provider Allergies No known active allergies Medications * This document contains information received from the source organization and may not represent a complete record from that organization. topiramate (Topamax) 25 MG tablet Take 1 tablet by mouth in the morning. 2 Active naproxen (Naprosyn) 500 MG tabletIndications: Fibromyalgia Take 1 tablet (500 mg) by mouth if needed in the morning and at bedtime for moderate pain. 60 tablet 5 5 Active albuterol (Ventolin HFA) 108 (90 Base) MCG/ACT inhalerIndications :Mild intermittent asthma without complication INHALE 2 PUFFS BY MOUTH EVERY 4 TO 6 HOURS NEEDED FOR WHEEZING OR SHORTNESS OF BREATH 18 g 3 5 Active Mometasone Furoate (Asmanex HFA) 100 MCG/ACT aerosol INHALE 1 PUFF TWICE DAILY. RINSE MOUTH AFTER USING.. 13 g 3 5 Active metFORMIN (Glucophage) 500 MG tabletIndications: Type 2 diabetes mellitus without complication, with long-term current use of insulin (HCC) Take 1 tablet (500 mg) by mouth 2 times daily. 180 tablet 1 5 Active levothyroxine (Synthroid, Levoxyl) 100 MCG tabletIndications: Acquired hypothyroidism TAKE 1 TABLET BY MOUTH EVERY DAY WITH A FULL GLASS OF WATER 30 TO 60 MINUTES BEFORE BREAKFAST 90 tablet 2 5 Active omeprazole (PriLOSEC) [address] capsuleIndications :Gastroesophageal reflux disease, unspecified whether esophagitis present TAKE 1 CAPSULE BY MOUTH EVERY DAY BEFORE A MEAL. Do not crush or chew. 90 capsule 2 5 Active gabapentin (Neurontin) 600 MG tabletIndications: Fibromyalgia TAKE 1 TABLET BY MOUTH EVERY TWELVE HOURS 180 tablet 2 5 Active Aspirin Low Dose 81 MG EC tablet Take 81 mg by mouth Once per day. Active atorvastatin (Lipitor) 40 MG tablet Take 40 mg by mouth Once per day. Active Blood Glucose Monitoring Suppl (FreeStyle Lite) w/Device kit 5 Active FREESTYLE LITE test strip 5 Active Lantus SoloStar 100 UNIT/ML pen Inject 18 Units under the skin at bedtime. 5 Active BD Pen Needle Alice U/F 32G X 4 MM misc USAR PARA LANTUS CADA GABRIELA 5 Active hydrOXYzine HCl (Atarax) 25 MG tabletIndications: Anxiety TAKE 1 TABLET BY MOUTH THREE TIMES DAILY NEEDED FOR ANXIETY 270 tablet 1 5 Active DULoxetine (Cymbalta) [address] capsuleIndications :Fibromyalgia TAKE 1 CAPSULE BY MOUTH EVERY DAY IN THE EVENING, DO NOT BREAK, CRUSH, DISSOLVE OR CHEW 90 capsule 1 5 Active DULoxetine (Cymbalta) [address] capsuleIndications :Fibromyalgia,Warp Spinner benitez midline low back pain with bilateral sciatica TAKE 1 CAPSULE BY MOUTH EVERY DAY IN THE MORNING, DO NOT BREAK, CRUSH, DISSOLVE OR CHEW 90 capsule 1 5 Active cyclobenzaprine (Flexeril) 5 MG tabletIndications: Muscle spasm TAKE 1-2 TABLETS (5-10 MG) BY MOUTH IF NEEDED AT BEDTIME FOR MUSCLE SPASMS. 60 tablet 2 5 06/24/20 26 Active Active Problems Problem Noted Date Diagnosed Date History of thyroid cancer 12/02/2023 Overview (12/02/2023): Reported Hx of thyroid CA w/ radioactive iodione [id number] in [place], no documentation available for review Repeat thyroid US ordered 12/02/23 Healthcare maintenance 12/01/2023 Overview (12/01/2023): Optometry: [facility] November 2022 Dental: [facility] Dental Colonoscopy: 09/10/2021. Repeat in 5 years due to polyps (2025) Pap: 06/18/21 NILM HPV Neg w/ Dr. Macias ([facility] PROGRAM DIRECTOR CABLE TELEVISION) Mammo: 07/10/22 BIRADS 2 REBECCA positive 12/01/2023 Overview (12/01/2023): Jul 2023: Low positive REBECCA with titer 1:80. Referral to Rheum sent. Eval in Aug 2023. Assessment & Plan (12/02/2023 4:52 PM EST): Per Consult Note: 10/15/23: [facility] Rheum - FLORA Boyce. Last seen 09/08/23, follows up for test results. Serology and hand XR were unrevealing. Positive REBECCA 1:30, but all extractable antigens are negative. Consider no underlying autoimmune or inflammatory disease process to her joint pain. Encouraged to follow up with PCP, Ortho, and pain management. No further appts needed through Rheum at this time. Lumbar disc herniation 08/10/2023 Overview (06/05/2025): -Specialists: following with [facility] Pain [facility], [facility], and PT Left L4-L5 parasagittal interlaminar LANIE on 11/06/[address] Hager (30% pain relief). 04/02/25: MRI lumbar spine - 1. Central/left paracentral disc protrusion at L4-L5 abuts the traversing L5 nerve root on the left. 2. Severe spinal canal stenosis at L4- L5. Assessment & Plan (06/05/2025 7:53 PM EDT): Consult with [facility] Pain [facility] and [facility] since last appt. Compression in the lateral recess on the left L5 nerve 2/2 large herniated disc bulge. Discuss surgery after A1c improvement. Medications: continues with gabapentin 600mg BID with some noted relief Goal: improve A1c in order to be candidate for surgery consult. Assessment & Plan (02/28/2025 2:03 PM EDT): 03/07/23: [facility] Pain Management - reviewed MRI. MRI showed large paracentral disc herniation at L4-5 with foraminal extension. There is ligament hypertrophy as well. Referral was placed to Neurosurgeon for further eval and surgical discectomy as did not believe that minimally invasive lumbar decompression would provide much pain relief. Referred to [facility], but surgery eval on hold pending faxed results of lumbar MRI from [place]. Pending. Reports has not yet had consult. Medications: continues with gabapentin 600mg BID with some noted relief Referral to re-establish with [facility] Assessment & Plan (12/02/2023 4:53 PM EST): 03/07/23: [facility] Pain [facility] - reviewed MRI. MRI showed large paracentral disc herniation at L4-5 with foraminal extension. There is ligament hypertrophy as well. Referral was placed to Neurosurgeon for further eval and surgical discectomy as did not believe that minimally invasive lumbar decompression would provide much pain relief. Referred to [facility], but surgery eval on hold pending faxed results of lumbar MRI from [place]. Pending. Medications: Pt reports methocarbamol was not overly effective, continues with gabapentin 600mg BID with some noted relief Assessment & Plan (08/10/2023 11:14 AM EST): 03/07/23: [facility] Pain [facility] - reviewed MRI. MRI showed large paracentral disc herniation at L4-5 with foraminal extension. There is ligament hypertrophy as well. Referral was placed to Neurosurgeon for further eval and surgical discectomy as did not believe that minimally invasive lumbar decompression would provide much pain relief. Cigarette smoker 08/10/2023 Assessment & Plan (12/02/2023 5:03 PM EST): -Decreased from smoking 1 ppd to 0.5 ppd -Encourage smoking cessation resources such as pharmacomtherapy, [facility] smoking cessation group, and [facility] pharmacy smoking cessation clinic Assessment & Plan (08/10/2023 11:21 AM EST): -Smoking 1 ppd -Encourage smoking cessation resources such as pharmacomtherapy, [facility] smoking cessation group, and [facility] pharmacy smoking cessation clinic Mild intermittent asthma 08/16/2022 Peripheral edema 08/16/2022 Uterine leiomyoma 08/16/2022 Venous insufficiency of leg 08/16/2022 Menometrorrhagia 09/15/2019 Type 2 diabetes mellitus 02/01/2019 Assessment & Plan (06/05/2025 7:44 PM EDT): Lab Results Component Value Date HGBA1C 10.9 (H) 03/17/2025 HGBA1C 13.0 (H) 02/28/2025 HGBA1C 6.2 (A) 08/01/2023 HGBA1C 5.7 (H) 04/20/2021 - Diagnosed December 2024 during hospitalization - Established with [facility] Endo - Continues with current med regimen including metformin 500 mg twice daily and Lantus 18 units nightly. - Encouraged lifestyle interventions - Plan to repeat A1c. Reports meds managed by Endo, will not make adjustments today. Assessment & Plan (03/01/2025 8:22 PM EDT): Lab Results Component Value Date HGBA1C 13.0 (H) 02/28/2025 HGBA1C 6.2 (A) 08/01/2023 HGBA1C 5.7 (H) 04/20/2021 - Diagnosed December 2024 during hospitalization - Plan to establish with [facility] - Continues with current med regimen including metformin 500 mg twice daily and Lantus 18 units nightly. - Encouraged lifestyle interventions Assessment & Plan (03/02/2024 12:02 PM EDT): Lab Results Component Value Date HGBA1C 6.2 (A) 08/01/2023 HGBA1C 5.7 (H) 04/20/2021 -Encouraged lifestyle interventions -Re-check A1c Assessment & Plan (12/01/2023 7:28 AM EST): Lab Results Component Value Date HGBA1C 6.2 (A) 08/01/2023 HGBA1C 5.7 (H) 04/20/2021 -Encouraged lifestyle interventions Assessment & Plan (08/10/2023 11:17 AM EST): Lab Results Component Value Date HGBA1C 6.2 (A) 08/01/2023 HGBA1C 5.7 (H) 04/20/2021 -Encouraged lifestyle interventions Anxiety 01/21/2019 Acquired hypothyroidism 01/21/2019 Overview (03/01/2025): Lab Results Component Value Date TSH 0.95 02/28/2025 Continue levothyroxine 100mcg daily Assessment & Plan (12/01/2023 2:50 PM EST): Hx of thyroid CA w/ radioactive iodione [id number] in [place] US of the thyroid Astigmatism 01/21/2019 Calcific tendinitis 01/21/2019 Fibromyalgia 01/21/2019 Assessment & Plan (03/02/2024 12:02 PM EDT): -Polyarthralgias, following with Pain Management -Jul 2023: Low Positive REBECCA w/ titer 1:80. RF negative. Referral to Rheum sent -Previously received Cymbalta from Psych prescriber, although has since transitioned to PCP -Continues with Cymbalta 60mg in the morning and 30mg in the evening -Naproxen BID PRN Assessment & Plan (12/01/2023 7:29 AM EST): -Polyarthralgias, following with Pain Management -Jul 2023: Low Positive ERBECCA w/ titer 1:80. RF negative. Referral to Rheum sent Assessment & Plan (08/10/2023 11:11 AM EST): -Polyarthralgias, following with Pain Management -Will check labs: REBECCA, Sed rate, CRP, RF Obesity 01/21/2019 Obstructive sleep apnea syndrome 01/21/2019 Assessment & Plan (06/05/2025 7:51 PM EDT): - Hx of CATHERINE but not currently with CPAP - Referral for sleep study for further evaluation Resolved Problems Problem Noted Date Diagnosed Date Resolved Date Popping of right knee joint 06/21/2024 03/01/2025 Assessment & Plan (06/21/2024 4:31 PM EDT): Patient with hx of meniscal injury felt a popping sensation while walking, denied trauma or falling, refers since her knee has remained unstable, seen at er were xray was done and was normal, will order a MRI to evaluate for ligament/meniscal tear/damage, will also refer to ortho for evaluation Periodontal disease 12/02/2022 08/01/20 23 Frequency of urination 09/13/202208/01 Assessment & Plan (09/13/2022 2:45 PM EST): No dysuria. Will send urine for culture and f/u with results Chronic low back pain with sciatica 09/01/2022 12/02/2023 Assessment & Plan (12/02/2023 4:51 PM EST): Assessment & Plan (02/12/2023 8:26 AM EDT): Encouraged to call [facility] Pain [facility] to confirm imaging has been received and schedule follow up appt as needed Medications: Pt reports methocarbamol was not overly effective, continues with gabapentin 600mg BID with some noted relief Assessment & Plan (09/13/2022 2:44 PM EST): Patient with chronic low back pain, has plan in place but reports naproxen is not helping her symptoms, will switch to diclofenac to use with APAP for synergistic effect. Also sent muscle relaxer. Recommended f/u with PCP and pain management Assessment & Plan (09/01/2022 3:24 PM EST): -Previously following with retail field supervisor and PT -Reports previous lumbar injections -Referral to Pain Management -Encouraged to continue with PT exercises at home, light stretching, rest, topical application of heat/cold as tolerated. -Encouraged [facility] Acupuncture clinic Encounters * This document contains information received from the source organization and may not represent a complete record from that organization. Date Type Department Care Team Description 06/24/2025 Refill [facility] MEDICINE [address] [place] [address] Kyra Lopez, CHAVO Fibromyalgia; Chronic midline low back pain with bilateral sciatica; Muscle spasm; Type 2 diabetes mellitus without complication, with long-term current use of insulin ([facility]) 06/20/2025 Refill [facility] [address] [place] [address] Kyra Lopez FNP Anxiety 06/03/2025 1:45 PM EDT Office Visit [facility] [address] [place] [address] Kyra Lopez FNP Obstructive sleep apnea syndrome (Primary Dx); Type 2 diabetes mellitus without complication, with long-term current use of insulin ([facility]); Onychauxis; Numbness and tingling of both feet; Dietary counseling; Exercise counseling; Lumbar disc herniation 06/03/2025 Travel 06/02/2025 1:00 PM EDT Office Visit [facility] OPTOMETRY [address] [place] [address] Nandini Zelaya, OD Type 2 diabetes mellitus without ophthalmic manifestations ([facility]) (Primary Dx); Dry eyes; Vitreoretinal degeneration of right eye; Hyperopia of both eyes with astigmatism and presbyopia 06/02/2025 Telephone [facility] [address] [place] [address] Kyra Lopez FNP chart prep 06/02/2025 Travel 05/31/2025 Refill [facility] [address] [place] [address] Kyra Lopez FNP Fibromyalgia from Last 3 Months Immunizations Immunization Administration Dates Next Due Hep B, adult 08/18/2019,04/06/2019,03/09/2019 Influenza injectable quadriv alent preservative free 08/01/2023,08/18/2019 Pfizer Covid-19 Vaccine 12+ 12/01/2023 Pneumococcal Conjugate PCV 20 12/01/2023 Pneumococcal Polysaccharide PPSV23 01/21/2019 Tdap 08/18/2019 Family History Medical History Relation Name Comments Thyroid nodules Brother 1 Asthma Brother 2 Estefaraia, philippe,keyona y wandy Depression Brother 2 Estefaraia, philippe,keyona y wandy Diabetes Brother 2 Esteselvin, philippe,keyona y wandy Hyperlipidemia Brother 2 Estebania, philippe,keyona y wandy Mental illness Brother 2 Estebania, philippe,keyona y wandy Hypertension Brother 3 Wandy ymarcos COPD Father Philippe Esophageal cancer Father Philippe Arthritis Mother Wandy L Olivas Cataracts, glaucoma Mother Wandy L Olivas Heart disease Mother Wandy L Olivas Hypothyroidism Mother Wandy L Olivas Thyroid cancer Sister Relation Name Status Comments Brother 1 Brother 2 Estefaraia, philippe,keyona y wandy Alive Brother 3 Wandy ymarcos Alive Father Philippe Alive Mother Wandy L Olivas Sister Social History Tobacco Use Types Packs/Day Years Used Date Smoking Tobacco: Every Day Cigarettes Passive Smoke Exposure: Current Smokeless Tobacco: Never Tobacco Cessation:Ready to Q uit: Not Asked; Counseling Given: Not Answered Alcohol Use Standard Drinks/Week Comments Never 0 (1 standard drink = 0.6 oz pur e alcohol) Depression Answer Date Recorded Patient Health Questionnaire-9 Score 6 02/28/2025 Patient Health Questionnaire-9 Score 6 02/28/2025 Last PHQ-9: Questionnaire Data Not on file 0 02/28/2025 Housing Stability Answer Date Recorded What is your housing situation today? I have nilesh lara 02/28/[address] you li ve. Do you have problems with any of the following? None of the above 02/28/2025 Food Insecurity Answer Date Recorded Within the past 12 months, y ou worried that your food would run out before you got money to buy more: Never True 02/28/2025 Within the past 12 months,th e food you bought just didn't last and you didn't have enough money to get more: Never True 10/2024 Transportation Answer Date Recorded In the past 12 months, has l ack of transportation kept you from medical appts, meetings, work or from getting things needed for daily living? No 02/28/2025 Utilities Answer Date Recorded In the past 12 months, has t he electric, gas, oil or water company threatened to shut off services in your home? No 02/28/2025 Depression Answer Date Recorded Patient Health Questionnaire-2 Score 4 02/28/2025 Internet Access Answer Date Recorded Internet Access Q1 Yes 02/28/2025 Internet Access Q2 Not on file 02/28/2025 Comments Unknown Sex and Gender Information Value Date Recorded Sex Assigned at Female 07/29/2022 10:35 AM EDT Legal Sex Female 10:35 AM EDT Gender Identity Female 07/29/2022 10:35 AM EDT Sexual Orientation Straight 07/29/2022 10 :35 AM EDT Last Filed Vital Signs Vital Sign Reading Time Taken Comments Blood Pressure 121/77 06/03/2025 1:38 PM EDT Pulse 101 06/03/2025 1:38 PM EDT Temperature 36.7 C (98.1 F) 06/03/2025 1:38 PM EDT Respiratory Rate 20 06/03/2025 1:38 PM EDT Oxygen Saturation 94% 06/03/2025 1:38 PM EDT Inhaled Oxygen Concentration - - Weight 93.4 kg (206 lb) 06/03/2025 1:38 PM EDT Height 157.5 cm (5' 2 ) 02/28/2025 1:14 PM EDT Body Mass Index 37.68 02/28/2025 1:14 PM EDT Plan of Treatment Health Maintenance Due Date Last Done Comments CT Colonography 1969 Dental Oral Exam 1969 Dental Prophylaxis 1969 Dental X-Ray: Bitewings 1969 FIT DNA/Cologuard 1969 FIT 1969 FOBT 1969 Sigmoidoscopy 1969 Diabetes: Urine Protein Screening 1988 Zoster Vaccines (1 of 2) 2019 Mammogram 07/10/2023 07/10/2022, 06/29, 06/27/2021, Additional history exists COVID-19 Vaccine ( - season) 2025 12/01/2023 Influenza Vaccine (#1) 2025 08/01/2023, 2018 Diabetes: Hemoglobin A1C 06/17/2025 025, 02/28/2025, 08/01/2023, Additional history exists Dental X-Ray: Full Mouth 12/03/2025 12/02/2022 Alcohol/Substance Use Screening 02/28/2026 02/28/2025 Depression Screening 02/28/2026 02/28/2025, 02/29/20 25 Lipid Panel 02/28/2026 02/28/2025, 04/20/2021 SDOH Screening 02/28/2026 02/28/2025 Diabetes: Foot Exam 06/03/2026 06/03/2025, 06/03/2025, 06/03/2025, Additional history exists Disability Screening 06/03/2026 06/03/2025 Tobacco Screening 06/03/2026 06/03/2025 Cervical Cancer Screening 06/18/2026 HPV/Cotest 06/18/2026 06/18/2021, 05/31, 03/04/2019 Pap Smear 06/18/2026 06/18/2021 Colonoscopy 09/28/2026 09/28/2021 Colorectal Cancer Screening 09/28/2026 Eye Exam 06/02/2027 06/02/2025, 12/2024, 06/02/2025, Additional history exists DTaP/Tdap/Td Vaccines (2 - Td or Tdap) 08/18/2029 08/18/2019 RSV Patients and Patients Aged 60 years or older (1 - 1-dose 75+ series) 2044 Hepatitis B Vaccines Completed 08/18/2019, 04/06/2019, 03/09/2019 Pneumococcal Vaccine: 50+ Years Completed 12/01/2023, 01/21/2019 HIV Screening Completed 02/28/2025 Hepatitis C Screening Completed 02/28/2025 HIB Vaccines Aged Out No longer eligi ble based on patient's age to complete this topic HPV Vaccines Aged Out No longer eligi ble based on patient's age to complete this topic Hepatitis A Vaccines Aged Out No long er eligible based on patient's age to complete this topic IPV Vaccines Aged Out No longer eligi ble based on patient's age to complete this topic Meningococcal B Vaccine Aged Out No l onger eligible based on patient's age to complete this topic Meningococcal Vaccine Aged Out No elza wade eligible based on patient's age to complete this topic RSV under 20 months Aged Out No longe r eligible based on patient's age to complete this topic Rotavirus Vaccines Aged Out No longer eligible based on patient's age to complete this topic Procedures Procedure Name Priority Date/Time Associated Diagnosis Comments GLUCOSE, WHOLE BLOOD Routine 07/06/2025 10:59 AM EDT POCT GLUCOSE Routine 06/03/2025 1:39 PM EDT Type 2 diabetes mellitus without complication, with long-term current use of insulin ([facility]) HEMOGLOBIN A1C Routine 03/17/2025 3:16 PM EDT HEPATITIS C VIRAL RNA, QUANTITATIVE, REAL-TIME PCR Routine 02/28/2025 2:07 PM EDT Healthcare maintenance HIV 1/2 ANTIGEN/ANTIBODY, FOURTH GENERATION W/RFL Routine 02/28/2025 2:07 PM EDT Healthcare maintenance LIPID PANEL, STANDARD Routine 02/28/2025 2:07 PM EDT Healthcare maintenance PANORAMIC RADIOGRAPHIC IMAGE Routine 12/02/2022 1:00 PM EST HM MAMMOGRAPHY Routine 07/10/2022 HM COLONOSCOPY Routine 09/28/2021 ZZZ HISTORICAL HPV E6/E7 RFLX CHRISTINA 16 18/45 Routine 06/18/2021 3:44 PM EDT HM PAP/HPV Routine 06/18/2021 12:00 AM EDT from Last 3 Months or Most Recently Relevant to Health Maintenance Results * (ABNORMAL) Glucose, Whole Blood (07/06/2025 10:59 AM EDT) Glucose, Whole Blood 183(H) 60 - 115 mg/dL [facility] Comment:METER #: [id number] 0Testing performed in the Endocrinology Department [address] , [address], [facility]. 07/06/2025 10:5 9 AM EDT 07/06/2025 11:03 AM EDT us Generic External Data Provider LAB BLOOD ORDERAB LES Final Result [facility] [address] [place] [phone] * POCT Glucose (06/03/2025 1:39 PM EDT) Pathologist [facility] Glucose Blood, POC 161 60 - 200 mg/dL QC Media Lot # [id number] Lot# Expiration Date [id number] Blood Capillary blood specimen / Unknown 06/03/2025 1:39 PM EDT Kyra Lopez REPEATER OPERATOR POINT OF CARE TEST ENTER/EDIT ORDERABLES Final Result * (ABNORMAL) Hemoglobin A1c (03/17/2025 3:16 PM EDT) Pathologist [facility] Hemoglobin A1c 10.9(H) <6.0 % [facility] Comment:Hemoglobin A1C Refer ence Range Adults: 4.8 - 6.0 % Non diabetic: < 6.0 % Goal: < 7.0 %Additional Action Suggested: > 8.0 %Note: Hemoglobin A1c results are invalid for patients with abnormal amounts of HbF. Blood transfusions may impact the HbA1c concentration in the patient sample. Estimated Average Glucose 266 mg/dL [facility] Comment:eAG = Estimated ave rage glucose which is %A1C expressed asaverage glucose, using the formula of the V2T-UmnmpbfJevbpvd Glucose study (ADAG), Diabetes Care, Vol.31,#8,Aug. 2007 03/17/2025 3:16 PM EDT 03/17/2025 3:16 PM EDT us Generic External Data Provider LAB BLOOD ORDERAB LES Final Result [facility] [address] [place] [address] [phone] * Hepatitis C Viral RNA, Quantitative, Real-Time PCR (02/28/2025 2:07 PM EDT) [facility] Hepatitis C Viral Load <15 NOT DETECTED NOT DETECTED IU/mL [facility] HCV Log PCR <1.18 NOT DETECTED NOT DETECTED Log IU/mL [facility] Comment:For additional infor maximiliano, please refer [email or web address](This link is being provided for informational/educational purposes only.)THIS TEST WAS PERFORMED AT:[facility] [place] [phone] REYNA MD Blood 02/28/2025 2:07 PM EDT 02/28/2025 5:34 PM EDT Kyra Lopez [facility] LAB BLOOD ORDERABLES Final Res ult Performing Organization Address [facility]/ZIP Co de Phone Number [facility] [address] [place] [phone] * HIV-1/2 Antigen and Antibodies, Fourth Generation, with Reflexes (02/28/2025 2:07 PM EDT) HIV AB/AG Nonreactive Nonreactive [facility] Comment:HIV-1 p24 Ag and/or HIV-1/HIV-2 Ab not detected.A test result that is nonreactive does not exclude thepossibility of exposure to or infection with HIV-1 and/orHIV-2. Nonreactive results in this assay for individualswith prior exposure to HIV-1 and/or HIV-2 may be due toantigen and antibody levels that are below the limit ofdetection of this assay.The [employer] HIV Ag/Ab Combo assay result andsupplemental assay results should be interpreted inconjunction with the patient's clinical presentation,history and other laboratory results. If the results areinconsistent with clinical evidence, additional testing issuggested to confirm the result. Blood Venous blood specimen / Unknown 02/28/2025 2:07 PM EDT 02/28/2025 5:34 PM EDT Kyra Lopez [facility] LAB BLOOD ORDERABLES Final Res ult Performing Organization Address [facility]/ZIP Co de Phone Number [facility] [address] [place] [address] [phone] * Lipid Panel, Standard (02/28/2025 2:07 PM EDT) Triglycerides 83 <150 mg/dL [facility] Comment:Desirable Triglyceri de: less than 150 mg/dLBorderline High Triglyceride 150-199 mg/dLHigh Triglyceride: 200-499 mg/dLVery High Triglyceride: greater than or equal to 5OO mg/dL Cholesterol 154 <200 mg/dL [facility] Comment:Desirable Cholestero l: less than 200 mg/dLBorderline High Cholesterol: 200-239 mg/dLHigh Cholesterol: greater than 239 mg/dL LDL Cholesterol Calculated 92 <100 mg/dL [facility] Comment:Desirable LDL: less than 100 mg/dLNear Optimal/Above Optimal LDL: 110- 129 mg/dLBorderline High LDL: 130-159 mg/dLHigh LDL: 160-189 mg/dLVery High LDL: greater than or equal to 190 mg/dL HDL Cholesterol 46 >40 mg/dL [facility] Comment:Desirable HDL: great er than 40 mg/dL Note: This HDL assay may give artificially low results in patients with liver disease. Blood Venous blood specimen / Unknown 02/28/2025 2:07 PM EDT 02/28/2025 5:34 PM EDT Kyra Lopez REPEATER OPERATOR LAB BLOOD ORDERABLES Final Res ult [facility] [address] [place] [phone] * Mammography (07/10/2022) Mammogram 07/10/2022 Anatomical Region Laterality Modality Other Historical Provider HEALTH MAINTENANCE Final Result * Colonoscopy (09/28/2021) Colonoscopy Normal Normal Narrative Kimberly To - 09/28/2021 Recommended 5 year follow up due to family history of polyos Historical Provider HEALTH MAINTENANCE Final Result * HPV E6/E7 RFLX CHRISTINA 16 18/45 (06/18/2021 3:44 PM EDT) HPV 16 RNA [facility] HPV 18/45 RNA [facility] HPV E6 E7 ADD [facility] HPV mRNA E6/E7 rflx Not Detected Not Detected [facility] Comment: Methodology: Electronic Security Technician-Mediated Amplification This assay detects E6/E7 viral messenger RNA (mRNA) from 14 high-risk HPV types (16,18,31,33,35,39,45,51,52,56,58,59,66,68). The analytical performance characteristics of this assay have been determined by [employer]. The modifications have not been cleared or approved by the FDA. This assay has been validated pursuant to the CLIA regulations and is used for clinical purposes. For additional information, please refer to http://education.[employer]/faq/MUF688r2 (This link if provided for information/ educational purposes only.) THIS TEST WAS PERFORMED AT: [facility] [address] [place] [address],[place] [address] KAREL REYNA MD 06/18/2021 3:44 PM EDT Hector Macias MD HISTORICAL/NON ORDERABLE LABS Fi nal Result [facility] [address] * Hm Pap Smear (06/18/2021 12:00 AM EDT) Historical Provider HEALTH MAINTENANCE Final Result from Last 3 Months or Most Recently Relevant to Health Maintenance Insurance [employer]ARE < 65 [facility] STANDARD DENTAL-[facility] MEDICAID STAND ADULT [facility] Care Teams Coding Clerk Relationship Specialty Start Date End Date Kyra Lopez FNP [address] [place] [address] PCP - General Family Medicine 05/29/22
--- OUTSIDE RECORDS SUMMARY | 2025-07-25 16:19 | XMS_ITS | Encounter Summary ---
Author Organization [employer] Address [address] [facility] [address]t [place] [address] Care Team Providers Care Curriculum And Assessment Director Name Role Phone HaleyKyra sargent CHAVO Primary Care Provider [phone] Encounter Details Date Type Department Care Team ([facility] st Contact Info) Description 06/23/2023 Orders Only [facility] MEDICINE [address] [place] [address] Kimberly To Social History Tobacco Use Types [...] Hm Pap Smear (06/18/2021 12:00 AM EDT) us Historical Provider HEALTH MAINTENANCE Final Result documented in this encounter Visit Diagnoses Not on filedocumented in this encounter Additional Health Concerns Assessment Noted Time PHQ-9 Depression Total Score: 23 023 9:35 AM EST documented as of this encounter Care Teams Curriculum And Assessment Director Relationship Specialty Start Date End Date Kyra Lopez FNP [address] [place] [phone] PCP - General Family Medicine 05/29/22 documented as of this encounter
--- OUTSIDE RECORDS SUMMARY | 2025-07-25 16:19 | XMS_ITS | Encounter Summary ---
Author Organization [email or web address] Address [address] [facility] [address] [place] [address] Care Team Providers Care Pit Laborer Name Role Phone Kyra Lopez Primary Care Provider [phone] Reason for Visit * Reason Comments Med Refill Encounter Details Date Type Department Care Team ([facility] Contact Info) Description 12/01/2023 Refill [facility] [address] [place] [address] Kyra Lopez FNP [address] [place] [address] Anxiety Social History Tobacco Use Types Packs/Day Years Used Date Smoking Tobacco: Every Day Cigarettes Smokeless Tobacco: Never Alcohol Use Standard Drinks/Week Comments Never 0 (1 standard drink = 0.6 oz pur e alcohol) Depression Answer Date Recorded Patient Health Questionnaire-9 Score 11/12/2022 Housing Stability Answer Date Recorded What [...] as of this encounter Visit Diagnoses Diagnosis Anxiety Anxiety state, unspecified documented in this encounter Additional Health Concerns Assessment Noted Time PHQ-9 Depression Total Score: 23 023 9:35 AM EST documented as of this encounter Care Teams Pit Laborer Relationship Specialty Start Date End Date Kyra Lopez FNP [address] [place] [id number] PCP - General Family Medicine 05/29/22 documented as of this encounter
--- OUTSIDE RECORDS SUMMARY | 2025-07-25 16:19 | XMS_ITS | Encounter Summary ---
Author Organization [employer] Address [address] [facility] [address] [place] [address] Care Team Providers Care Paving Block Cutter Name Role Phone Kyra Lopez Primary Care Provider [phone] Reason for Visit * Reason Onset Date Comments requesting a call back 09/17/2022 Encounter Details Date Type Department Care Team ([facility] Contact Info) Description 09/17/2022 Telephone [facility] MED[facility]INE [address] [place] [address] Kyra Lopez FNP [address] [place] [address] requesting a call back Social History Tobacco Use Types Packs/Day Years [...] PM EST documented as of this encounter Miscellaneous Notes * Telephone Encounter - Jason Muir - 09/17/2022 11:43 AM EST Tc from pt requesting a call back regarding voice message left Please contact pt at [phone] documented in this encounter Plan of Treatment Not on file documented as of this encounter Visit Diagnoses Not on filedocumented in this encounter Care Teams Paving Block Cutter Relationship Specialty Start Date End Date Kyra Lopez FNP [address] [place] [phone] PCP - General Family Medicine 05/29/22 documented as of this encounter
--- OUTSIDE RECORDS SUMMARY | 2025-07-25 16:19 | XMS_ITS | Clinical Summary ---
Author Organization [address] [facility] Address [address] [place] [address] Phone Care Team Providers Care Lunch Wagon Operator Name Role Phone Unavailable Primary Care Provider Unavailabl e Social History Tobacco Use Types Packs/Day Years Used Date Smoking Tobacco: Never Assessed Comments Unknown Sex and Gender Information Value Date Recorded Sex Assigned at Not on file Legal Sex Female 11:56 AM EDT Gender Identity Not on file Sexual Orientation Not on file Plan of Treatment Upcoming Encounters Date Type Department Care Team ([facility] Contact Info) Description 11/03/2025 10:00 AM EST Office Visit Orthopedic Surgery [facility] [address] [facility] [address] [place] [phone] Missael Valderrama, DHRUV [address] [place] [address] Health Maintenance Due Date Last Done Comments Breast Cancer Screening 1969 Colorectal Cancer Screening: Colonoscopy 1969 Diabetes: Annual GFR (Glomer ular Filtration Rate) 1969 Diabetes: Annual Foot Exam 1979 Diabetes: Annual Retina Eye Exam 1979 DTaP,Tdap,and Td Vaccines (1 - Tdap) 1988 Hepatitis B Vaccines (1 of 3 - 19+ 3-dose series) 1988 Pneumococcal Vaccine: 50+ Ye ars (1 of 2 - PCV) 1988 Cervical Cancer Screening: P ap Smear 1990 Zoster Vaccines (1 of 2) 2019 Depression Screening 09/29/2024 COVID-19 Vaccine (1 - 2023-2 5 season) 2025 Influenza Vaccine (#1) 2025 Cholesterol Screening (Lipid Panel) 06/08/2025 Diabetes: Annual Urine Albumin-Creatinine Ratio (uACR) 06/08/2025 Diabetes: Blood Sugar Contro l Test (HGBA1C) 06/08/2025 HIV Screening 06/08/2025 Hepatitis C Screening 06/08/2025 Social Influencers of Health Screening 06/08/2025 RSV Immunization Adult Patie nts (1 - 1-dose 75+ series) 2044 HIB Vaccines Aged Out No longer eligi [...] on patient's age to complete this topic MMR Vaccines Aged Out No longer eligi ble based on patient's age to complete this topic Meningococcal ACWY Vaccine Aged Out N o longer eligible based on patient's age to complete this topic Meningococcal B Vaccine Aged Out No l onger eligible based on patient's age to complete this topic RSV Immunization Patients Un cresencio 20 months Aged Out No longer eligible b ased on patient's age to complete this topic Varicella Vaccines Aged Out No longer eligible based on patient's age to complete this topic Insurance Member Subscriber Plan / Payer (Ef fective 2023-Present) Name:KELLY NUNES Relation to Subscriber:Self Name:Kelly Mccarthy Payer ID:[id number] Group ID:[id number] Type:Not on file Address: [address] [place] [id number]
== END 2025-07-25 13:23 | disposition home or self-care (01) ==
LOC: HO.HPODS 12:51
PROVIDERS: PCP Registered Nurse; Visit Provider Student in an Organized Health Care Education/Training Program
DX: E11.42 Type 2 diabetes mellitus with diabetic polyneuropathy (principal); I73.9 Peripheral vascular disease, unspecified; L60.2 Onychogryphosis; B35.3 Tinea pedis
CPT/HCPCS: 99204

== ENCOUNTER → 2025-07-25 12:51 | Outpatient (BNVA) | payer OTHER, SELFPAY | PROVIDERS: PCP Registered Nurse; Visit Provider Student in an Organized Health Care Education/Training Program | DX: E11.42 Type 2 diabetes mellitus with diabetic polyneuropathy (principal); E11.51 Type 2 diabetes mellitus with diabetic peripheral angiopathy without gangrene; E11.628 Type 2 diabetes mellitus with other skin complications; L60.2 Onychogryphosis; B35.3 Tinea pedis; F17.210 Nicotine dependence, cigarettes, uncomplicated | CPT/HCPCS: 11721; 99202 ==

== ENCOUNTER 2025-07-27 10:47 | Outpatient (AMB) | payer OTHER, SELFPAY ==
--- NOTE | 2025-07-27 11:23 | A.OFFVIS_ITS ---
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 Robotic Technician Required: Yes Robotic Technician Language: Special Agent Secret Service Name: Lottie Bush Accompanied by: Self / Same As Patient Allergies tizanidine Allergy (Intermediate, Verified 07/25/25 13:01) Swelling HPI Comprehensive Diabetes Asmnt Most Recent Diabetes Results: 2 Hemoglobin A1c 5.8 % 02/01/19 Cholesterol, (<200) 154 mg/dL 02/28/25 HDL Cholesterol, (>40) 46 mg/dL 02/28/25 Triglycerides, (<150) 83 mg/dL 02/28/25 Creatinine, (0.5-1.4) 0.68 mg/dL 03/17/25 BUN, (9-16) 6 mg/dL L 03/17/25 Sodium, (135-145) 139 mmol/L 03/17/25 Potassium, (3.3-5.1) 4.1 mmol/L 03/17/25 Chloride, (96-108) 99 mmol/L 03/17/25 Carbon Dioxide, (22-29) 29 mmol/L 03/17/25 Calcium, (8.4-10.2) 9.8 mg/dL Δ 03/17/25 AST, (5-31) 18 U/L 03/17/25 ALT, (0-31) 12 U/L 03/17/25 Total Protein, (6.5-8.0) 7.3 g/dL 03/17/25 Albumin, (3.5-5.0) 4.5 g/dL 03/17/25 PFSH Medical History Elevated sed rate REBECCA positive Pain in joint involving multiple sites Neuropathy, peripheral Fibromyalgia Migraine Pre-diabetes Sleep apnea GERD (gastroesophageal reflux disease) Foot fracture Asthma Hypothyroidism Surgical History H/O umbilical hernia repair H/O shoulder surgery Hx of section Family History Mother Hypothyroidism HTN (hypertension) Diabetes Father Esophagus cancer Brother Asthma Social History Household Members: Family Housing: Apartment Alcohol intake: never Patient Tobacco Use Status: Current someday Tobacco user Tobacco use type: Cigarette Cigarettes Per Day: 20 Years Smoked: 25 Current occupational status: disabled Current occupation: rt hand Female Reproductive History Menstrual Age of Menarche: 8 Assessment & Plan Assessment & Plan (1) Type 2 diabetes mellitus: Code(s): E11.9 - Type 2 diabetes mellitus without complications Plan Learning objectives: The patient was provided with verbal and written education on the following topics as outlined below. The patient met all learning objectives and was able to verbalize understanding and provide teach back of education topics discussed . The patient was provided with the opportunity to ask questions and all questions were answered. Patient Assessment Assess patient education level/literacy/barriers, Pt's A1c on 07/06/25 7.4% down from 10.9% Medications: Metformin 500 mg bid Lantus 18 units Patient questions/concerns: Pt is having sporadic episodes of hypoglycemia. Recommended patient reduce Lantus 18 units to Lantus 14 units daily, instructed patient if she continues to have multiple episodes of hypoglycemia week to contact clinic Reviewed the following; Hypoglycemia or blood glucose under 70 use the rule of 15's: If you have your blood glucose meter test your blood glucose, if you do not have your meter still follow below instruction: Keep quick-sugar foods with you at all times.? Take 15 grams of fast acting carbohydrates. Examples are 4 ounces of fruit juice or regular soda pop, 8 ounces fat-free milk, 1 tablespoon of table sugar, honey or corn syrup, jam, one miniature box of raisins, 7-8 gumdrops or Life Savers candy, 4 glucose tablets, and glucose gel.? Retest blood glucose in 15 minutes, if blood glucose is still under 80,repeat rule of 15's. If blood glucose is under 50, take 30 grams of fast acting carbohydrates If you are having hypoglycemia, or insulin reaction, more that a few times a week, call MD or diabetic educator F/U BG check What is Diabetes? Pathophysiology How the body produces and uses insulin Identify type of DM Risk factors Signs of Diabetes Brief overview of Diabetes Management Monitoring blood sugar Following a meal plan Regular exercise Maintaining a healthy weight Taking medication as needed Members of the care team (PCP, RN, MA, RD, CDE, scientific informatics leader) Blood glucose monitoring When/how often to test Target blood sugar ranges Introduction to Nutrition Importance of healthy diet in managing DM Diet is personalized to individual preference Review patient?s regular diet/food preferences Who prepares meals/does food shopping/ Dining out?/ Barriers? How diet effects glucose Eating 3 balanced meals a day with small, healthy snacks between meals Review food groups Carbohydrates: What is a carbohydrate/Which food/food groups are considered carbohydrates Effect of carbohydrates on blood glucose Portion sizes Reading food labels Basic carb counting (if applicable per nursing assessment) Plate method Meal planning Recommendations: Follow plate method, consistent carbs and read nutritional labels. Smart Goal: Use rule of 15s to treat episodes of hypoglycemia Educational Materials: The patient was provided with the following written educational materials: Planning Healthy Meals, hypoglycemia Handouts in Greek Patient Response to instructions: Comprehension of Instructions: Fair Readiness to make changes: Contemplation How confident they feel about making changes: Positive Portions of this note were created using voice recognition software, please excuse any words or phrases that may have been misinterpreted. Patient Instructions: Reducir Lantus de 18 unidades a 14 unidades diarias Incluir actividad diaria regular. ADA recomienda 30 minutos de ejercicio 5 d?as a la semana. P?rdida de peso, hable con el PCP o el cardi?logo antes de comenzar un nuevo plan. Mida el nivel de az?car en la peyton seg?n las indicaciones; Ayuno y comida m?s meghna de 2hpp. Observe las tendencias en los resultados. Utilice los resultados y eval?e c?mo los alimentos, la actividad f?susie y los medicamentos afectan los resultados de az?car en la peyton. Lleve el gluc?metro o CGM a la pr?xima visita. Conocer los medicamentos para la diabetes, ybarra acci?n, los efectos secundarios, la eficacia, la toxicidad, la dosis prescrita, el momento y la frecuencia de administraci?n apropiados, el efecto de las dosis olvidadas y retrasadas y las instrucciones de almacenamiento, viaje y seguridad. T?cnicas de resoluci?n de problemas para el seguimiento de episodios de hipo/hiperglucemia y tratamientos. Reducir los comportamientos de reducci?n de riesgos, dejar de fumar, ex?menes regulares de ojos, pies y dentales Coding Level of Care Code Est Pt Level 1 (73876) Diagnoses Type 2 diabetes mellitus E11.9
--- OUTSIDE RECORDS SUMMARY | 2025-07-27 13:33 | XMS_ITS | Clinical Summary ---
Author Organization [employer] Address [address] [facility] 7t [place] [address] Care Team Providers Care Cane Packer Name Role Phone HaleyKyra sargent CHAVO Primary [...] Active DULoxetine (Cymbalta) [address] capsuleIndications :Fibromyalgia,Concessions Manager benitez midline low back pain with bilateral [...] Hx of thyroid CA w/ radioactive iodione [id number] in [place], no documentation available for review Repeat thyroid US ordered 12/02/23 Healthcare maintenance 12/01/2023 Overview (12/01/2023): Optometry: CEE November 2022 Dental: [facility] Dental Colonoscopy: 09/10/2021. Repeat in 5 years due to polyps (2025) Pap: 06/18/21 NILM HPV Neg w/ Dr. Macias ([facility]) Mammo: 07/10/22 BIRADS 2 REBECCA positive 12/01/2023 Overview (12/01/2023): Jul 2023: Low positive REBECCA with titer 1:80. Referral to Rheum sent. Eval in Aug 2023. Assessment & Plan (12/02/2023 4:52 PM EST): Per Consult Note: 10/15/23: [facility] Rheum - FLORA Boyce. Last seen 09/08/23, [...] herniation 08/10/2023 Overview (06/05/2025): -Specialists: following with [facility] Pain Management, [facility] Spine [facility], and PT Left L4-L5 parasagittal interlaminar LANIE on 11/06/[address] Hager (30% pain relief). 04/02/25: MRI lumbar spine - 1. Central/left paracentral disc protrusion at L4-L5 abuts the traversing L5 nerve root on the left. 2. Severe spinal canal stenosis at L4- L5. Assessment & Plan (06/05/2025 7:53 PM EDT): Consult with [facility] Pain Management and Spine Center since last appt. Compression in the lateral recess on the left L5 nerve 2/2 large herniated disc bulge. Discuss surgery after A1c improvement. Medications: continues with gabapentin 600mg BID with some noted relief Goal: improve A1c in order to be candidate for surgery consult. Assessment & Plan (02/28/2025 2:03 PM EDT): 03/07/23: [facility] Pain Management - reviewed MRI. MRI showed large paracentral disc herniation at L4-5 with foraminal extension. There is ligament hypertrophy as well. Referral was placed to Neurosurgeon for further eval and surgical discectomy as did not believe that minimally invasive lumbar decompression would provide much pain relief. Referred to [facility] Spine Center, but surgery eval on hold pending faxed results of lumbar MRI from [place]. Pending. Reports has not yet had consult. Medications: continues with gabapentin 600mg BID with some noted relief Referral to re-establish with [facility] Pain Management Assessment & Plan (12/02/2023 4:53 PM EST): 03/07/23: [facility] Pain Management - reviewed MRI. MRI showed large paracentral disc herniation at L4-5 with foraminal extension. There is ligament hypertrophy as well. Referral was placed to Neurosurgeon for further eval and surgical discectomy as did not believe that minimally invasive lumbar decompression would provide much pain relief. Referred to [facility] Spine [facility], but surgery eval on hold pending faxed results of lumbar MRI from [place]. Pending. Medications: Pt reports methocarbamol was not overly effective, continues with gabapentin 600mg BID with some noted relief Assessment & Plan (08/10/2023 11:14 AM EST): 03/07/23: [facility] Pain Management - reviewed MRI. MRI showed [...] as pharmacomtherapy, [facility] smoking cessation group, and [facility] pharmacy smoking cessation clinic Assessment & Plan (08/10/2023 11:21 AM EST): -Smoking 1 ppd -Encourage smoking cessation resources such as pharmacomtherapy, [facility] smoking cessation group, and [facility] pharmacy smoking cessation clinic Mild intermittent asthma 08/16/2022 Peripheral edema 08/16/2022 Uterine leiomyoma 08/16/2022 Venous insufficiency of leg 08/16/2022 Menometrorrhagia 09/15/2019 Type 2 diabetes mellitus 02/01/2019 Assessment & Plan (06/05/2025 7:44 PM EDT): Lab Results Component Value Date HGBA1C 10.9 (H) 03/17/2025 HGBA1C 13.0 (H) 02/28/2025 HGBA1C 6.2 (A) 08/01/2023 HGBA1C 5.7 (H) 04/20/2021 - Diagnosed December 2024 during hospitalization - Established with [facility] Endo - Continues with current med [...] during hospitalization - Plan to establish with [facility] - Continues with current med regimen [...] Hx of thyroid CA w/ radioactive iodione [id number] in [place] of the thyroid Astigmatism 01/21/2019 Calcific [...] (02/12/2023 8:26 AM EDT): Encouraged to call [facility] Pain Management to confirm imaging has been [...] (09/01/2022 3:24 PM EST): -Previously following with airline reservation agent and PT -Reports previous lumbar injections -Referral to Pain Management -Encouraged to continue with PT exercises at home, light stretching, rest, topical application of heat/cold as tolerated. -Encouraged [facility] Acupuncture clinic Encounters * This document contains information received from the source organization and may not represent a complete record from that organization. Date Type Department Care Team Description 06/24/2025 Refill [facility] MEDICINE [address] [place] [address] Kyra Lopez, CHAVO Fibromyalgia; Chronic midline low back pain with bilateral sciatica; Muscle spasm; Type 2 diabetes mellitus without complication, with long-term current use of insulin ([facility]) 06/20/2025 Refill [facility] [address] [place] [address] Kyra Lopez FNP Anxiety 06/03/2025 1:45 PM EDT Office Visit [facility] [address] [place] [address] Kyra Lopez FNP Obstructive sleep apnea syndrome (Primary Dx); Type 2 diabetes mellitus without complication, with long-term current use of insulin ([facility]); Onychauxis; Numbness and tingling of both feet; Dietary counseling; Exercise counseling; Lumbar disc herniation 06/03/2025 Travel 06/02/2025 1:00 PM EDT Office Visit [facility] OPTOMETRY [address] [place] [address] Nandini Zelaya, OD Type 2 diabetes mellitus without ophthalmic manifestations ([facility]) (Primary Dx); Dry eyes; Vitreoretinal degeneration of right eye; Hyperopia of both eyes with astigmatism and presbyopia 06/02/2025 Telephone [facility] [address] [place] [address] Kyra Lopez FNP chart prep 06/02/2025 Travel 05/31/2025 Refill [facility] [address] [place] [address] Kyra Lopez FNP Fibromyalgia from Last 3 [...] complication, with long-term current use of insulin ([facility]) HEMOGLOBIN A1C Routine 03/17/2025 3:16 [...] Whole Blood 183(H) 60 - 115 mg/dL [facility] Comment:METER #: [id number] 0Testing performed in the Endocrinology Department [address] , [address], [facility]. 07/06/2025 10:5 9 AM EDT 07/06/2025 11:03 AM EDT us Generic External Data Provider LAB BLOOD ORDERAB LES Final Result [facility] [address] [place] [phone] * POCT Glucose (06/03/2025 1:39 PM EDT) Pathologist [facility] Glucose Blood, POC 161 60 - 200 mg/dL QC Media Lot # [id number] Lot# Expiration Date [id number] Blood Capillary blood specimen / Unknown 06/03/2025 1:39 PM EDT Kyra Lopez PIECE MEAT TRIMMER POINT OF CARE TEST ENTER/EDIT ORDERABLES Final Result * (ABNORMAL) Hemoglobin A1c (03/17/2025 3:16 PM EDT) Pathologist [facility] Hemoglobin A1c 10.9(H) <6.0 % [facility] Comment:Hemoglobin A1C Refer ence Range Adults: 4.8 - 6.0 % Non diabetic: < 6.0 % Goal: < 7.0 %Additional Action Suggested: > 8.0 %Note: Hemoglobin A1c results are invalid for patients with abnormal amounts of HbF. Blood transfusions may impact the HbA1c concentration in the patient sample. Estimated Average Glucose 266 mg/dL [facility] Comment:eAG = Estimated ave rage glucose which is %A1C expressed asaverage glucose, using the formula of the Z6P-KnpexdxMgytprl Glucose study (ADAG), Diabetes Care, Vol.31,#8,Aug. 2007 03/17/2025 3:16 PM EDT 03/17/2025 3:16 PM EDT us Generic External Data Provider LAB BLOOD ORDERAB LES Final Result [facility] [address] [place] [address] [phone] * Hepatitis C Viral RNA, Quantitative, Real-Time PCR (02/28/2025 2:07 PM EDT) [facility] Hepatitis C Viral Load <15 NOT DETECTED NOT DETECTED IU/mL [facility] HCV Log PCR <1.18 NOT DETECTED NOT DETECTED Log IU/mL [facility] Comment:For additional infor maximiliano, please refer tohttp://education.Bih[employer].com.Appsee/faq/PMA53v3(This link is being provided for informational/educational purposes only.)THIS TEST WAS PERFORMED AT:[facility] [place] [phone] REYNA MD Blood 02/28/2025 2:07 PM EDT 02/28/2025 5:34 PM EDT Kyra Lopez [facility] LAB BLOOD ORDERABLES Final Res ult Performing Organization Address [facility]/ZIP Co de Phone Number [facility] [address] [place] [phone] * HIV-1/2 Antigen and Antibodies, Fourth Generation, with Reflexes (02/28/2025 2:07 PM EDT) HIV AB/AG Nonreactive Nonreactive [facility] Comment:HIV-1 p24 Ag and/or HIV-1/HIV-2 Ab not detected.A test result that is nonreactive does not exclude thepossibility of exposure to or infection with HIV-1 and/orHIV-2. Nonreactive results in this assay for individualswith prior exposure to HIV-1 and/or HIV-2 may be due toantigen and antibody levels that are below the limit ofdetection of this assay.The [employer] HIV Ag/Ab Combo assay result andsupplemental assay results should be interpreted inconjunction with the patient's clinical presentation,history and other laboratory results. If the results areinconsistent with clinical evidence, additional testing issuggested to confirm the result. Blood Venous blood specimen / Unknown 02/28/2025 2:07 PM EDT 02/28/2025 5:34 PM EDT Kyra Lopez [facility] LAB BLOOD ORDERABLES Final Res ult Performing Organization Address [facility]/ZIP Co de Phone Number [facility] [address] [place] [phone] [phone] * Lipid Panel, Standard (02/28/2025 2:07 PM EDT) Triglycerides 83 <150 mg/dL [facility] Comment:Desirable Triglyceri de: less than 150 mg/dLBorderline High Triglyceride 150-199 mg/dLHigh Triglyceride: 200-499 mg/dLVery High Triglyceride: greater than or equal to 5OO mg/dL Cholesterol 154 <200 mg/dL [facility] Comment:Desirable Cholestero l: less than 200 mg/dLBorderline High Cholesterol: 200-239 mg/dLHigh Cholesterol: greater than 239 mg/dL LDL Cholesterol Calculated 92 <100 mg/dL [facility] Comment:Desirable LDL: less than 100 mg/dLNear Optimal/Above Optimal LDL: 110- 129 mg/dLBorderline High LDL: 130-159 mg/dLHigh LDL: 160-189 mg/dLVery High LDL: greater than or equal to 190 mg/dL HDL Cholesterol 46 >40 mg/dL [facility] Comment:Desirable HDL: great er than 40 mg/dL Note: This HDL assay may give artificially low results in patients with liver disease. Blood Venous blood specimen / Unknown 02/28/2025 2:07 PM EDT 02/28/2025 5:34 PM EDT Kyra Lopez PIECE MEAT TRIMMER LAB BLOOD ORDERABLES Final Res ult [facility] [address] [place] [phone] * Mammography (07/10/2022) Mammogram 07/10/2022 Anatomical [...] mRNA E6/E7 rflx Not Detected Not Detected [facility] Comment: Methodology: Relations Mgr-Mediated Amplification This assay detects E6/E7 viral messenger RNA (mRNA) from 14 high-risk HPV types (16,18,31,33,35,39,45,51,52,56,58,59,66,68). The analytical performance characteristics of this assay have been determined by [employer]. The modifications have not been cleared or approved by the FDA. This assay has been validated pursuant to the CLIA regulations and is used for clinical purposes. For additional information, please refer to http://education.[employer]/faq/QGN824r8 (This link if provided for information/ educational purposes only.) THIS TEST WAS PERFORMED AT: [facility] [address] [place] [address],[place] [address] KAREL REYNA MD 06/18/2021 3:44 PM EDT Hector Macias MD HISTORICAL/NON ORDERABLE LABS Fi nal Result [facility] [address] * Hm Pap Smear (06/18/2021 12:00 AM EDT) Historical Provider HEALTH MAINTENANCE Final Result from Last 3 Months or Most Recently Relevant to Health Maintenance Insurance [employer] < 65 [facility] STANDARD [facility] MEDICAID STAND ADULT [facility] Care Teams Cane Packer Relationship Specialty Start Date End Date Kyra Lopez FNP [address] [place] [address] PCP - General Family Medicine 05/29/22
--- OUTSIDE RECORDS SUMMARY | 2025-07-27 13:33 | XMS_ITS | Encounter Summary ---
Author Organization [employer] Address [address] [facility] 7t [place] [address] Care Team Providers Care Business Test Analyst Name Role Phone Kyra Lopez Primary Care Provider [phone] Reason for Visit * Reason Onset Date Comments Med Refill 11/18/2024 Encounter Details Date Type Department Care Team ([facility] st Contact Info) Description 11/18/2024 Refill [facility] [address] [facility] [place] [address] Kyra Lopez FNP [address] [place] [address] Mild intermittent asthma without complication; Fibromyalgia; Chronic [...] OK for tele if needed. Sending to [facility]/team nurses for outreach. Thanks! * Telephone Encounter [...] 25 MG tablet To be sent to: [facility]/pharmacy #[id number] - [place], [place] - [address] [place] [address] documented in this encounter Plan of Treatment Not on file documented as of this encounter Visit Diagnoses Diagnosis Mild intermittent asthma without complication Fibromyalgia Unspecified myalgia and myositis Chronic midline low back pain with bilateral sciatica documented in this encounter Additional Health Concerns Assessment Noted Time PHQ-9 Depression Total Score: 23 023 9:35 AM EST documented as of this encounter Care Teams Business Test Analyst Relationship Specialty Start Date End Date Kyra Lopez FNP [address] [place] [address] PCP - General Family Medicine 05/29/22 documented as of this encounter
--- OUTSIDE RECORDS SUMMARY | 2025-07-27 13:33 | XMS_ITS | Encounter Summary ---
Author Organization [employer] Address [address] [facility] 7 [place] [address] Care Team Providers Care Spinning Lathe Operator Hydraulic Name Role Phone Kyra Lopez Primary Care Provider [phone] Reason for Visit * Reason Onset Date Comments requesting a call back 09/17/2022 Encounter Details Date Type Department Care Team ([facility] Contact Info) Description 09/17/2022 Telephone [facility] MEDICINE [address] [place] [address] Kyra Lopez FNP [address] [place] [address] requesting a call back Social History Tobacco [...] voice message left Please contact pt at [phone] documented in this encounter Plan of Treatment Not on file documented as of this encounter Visit Diagnoses Not on filedocumented in this encounter Care Teams Spinning Lathe Operator Hydraulic Relationship Specialty Start Date End Date Kyra Lopez FNP [address] [place] [address] PCP - General Family Medicine 05/29/22 documented as of this encounter
--- OUTSIDE RECORDS SUMMARY | 2025-07-27 13:33 | XMS_ITS | Encounter Summary ---
Author Organization [employer] Address [address] [facility] 7t [place] [address] Care Team Providers Care Building Repair Maintenance Supervisor Name Role Phone Kyra Lopez Primary Care Provider [phone] Reason for Visit * Reason Comments Med Refill Encounter Details Date Type Department Care Team ([facility] st Contact Info) Description 09/26/2022 Refill [facility] [address] [place] [address] Jocelyn Morse MD [address] [place] [address] Chronic midline low back pain with bilateral [...] sciatica documented in this encounter Care Teams Building Repair Maintenance Supervisor Relationship Specialty Start Date End Date Kyra Lopez FNP [address] [place] [address] PCP - General Family Medicine 05/29/22 documented as of this encounter
--- OUTSIDE RECORDS SUMMARY | 2025-07-27 13:33 | XMS_ITS | Encounter Summary ---
Author Organization [employer] Address [address] [facility] 7t [place] [address] Care Team Providers Care Heavy Equipment Operator Apprentice Name Role Phone HaleyKyra sargent CHAVO Primary Care Provider [phone] Encounter Details Date Type Department Care Team ([facility] st Contact Info) Description 06/23/2023 Orders Only [facility] MEDICINE [address] [place] [address] Kimberly To Social History Tobacco Use Types [...] documented as of this encounter Care Teams Heavy Equipment Operator Apprentice Relationship Specialty Start Date End Date Kyra Lopez FNP [address] [place] [address] PCP - General Family Medicine 05/29/22 documented as of this encounter
--- OUTSIDE RECORDS SUMMARY | 2025-07-27 13:33 | XMS_ITS | Encounter Summary ---
Author Organization [employer] Address [address] [facility] 7t [place] [address] Care Team Providers Care Soccer Player Name Role Phone Kyra Lopez Primary Care Provider [phone] Reason for Visit * Reason Comments Med Refill Encounter Details Date Type Department Care Team ([facility] Contact Info) Description 12/01/2023 Refill [facility] [address] [place] [address] Kyra Lopez FNP [address] [place] [address] Anxiety Social History Tobacco Use Types Packs/Day [...] documented as of this encounter Care Teams Soccer Player Relationship Specialty Start Date End Date Kyra Lopez FNP [address] [place] [address] PCP - General Family Medicine 05/29/22 documented as of this encounter
--- OUTSIDE RECORDS SUMMARY | 2025-07-27 13:33 | XMS_ITS | Encounter Summary ---
Author Organization [employer] Address [address] [facility] [address] 7[address] [place] [address] Care Team Providers Care Sales And Retail Management Recruiter Name Role Phone HaleyKyra sargent CHAVO Primary Care Provider [phone] Encounter Details Date Type Department Care Team ([facility] Contact Info) Description 08/14/[address] [facility] MEDICINE [address] [place], [place] [phone] Kimberly To Social History Tobacco Use Types [...] documented as of this encounter Care Teams Sales And Retail Management Recruiter Relationship Specialty Start Date End Date Kyra Lopez FNP [address] [place] [address] PCP - General Family Medicine 05/29/22 documented as of this encounter
--- OUTSIDE RECORDS SUMMARY | 2025-07-27 13:33 | XMS_ITS | Clinical Summary ---
Author Organization [address] [facility] Address [address] [place] [address] Phone Care Team Providers Care Advanced Research Programs Director Name Role Phone Unavailable Primary Care Provider Unavailabl e Social History Tobacco Use Types Packs/Day Years Used Date Smoking Tobacco: Never Assessed Comments Unknown Sex and Gender Information Value Date Recorded Sex Assigned at Not on file Legal Sex Female 11:56 AM EDT Gender Identity Not on file Sexual Orientation Not on file Plan of Treatment Upcoming Encounters Date Type Department Care Team ([facility] Contact Info) Description 11/03/2025 10:00 AM EST Office Visit Orthopedic Surgery [facility] [address] [facility] [address] [place] [phone] Missael Valderrama, DHRUV [address] [place] [address] Health Maintenance Due Date Last [...] Group ID:ICO Type:Not on file Address: [address] [place] [id number]
== END 2025-07-27 11:42 | disposition home or self-care (01) ==
LOC: HO.ENCR 10:48
PROVIDERS: PCP Registered Nurse; Visit Provider Registered Nurse Diabetes Educator
DX: E11.9 Type 2 diabetes mellitus without complications (principal)

== ENCOUNTER → 2025-07-27 10:47 | Outpatient (BNVA) | payer OTHER, SELFPAY | PROVIDERS: PCP Registered Nurse; Visit Provider Registered Nurse Diabetes Educator | DX: E11.42 Type 2 diabetes mellitus with diabetic polyneuropathy (principal); M79.7 Fibromyalgia; Z79.4 Long term (current) use of insulin; Z79.84 Long term (current) use of oral hypoglycemic drugs | CPT/HCPCS: 99211 ==

== ENCOUNTER 2025-08-08 13:01 | Outpatient (AMB) | payer OTHER, SELFPAY ==
--- NOTE | 2025-08-08 13:03 | MHC.OFFVIS ---
Vital Signs 08/08/25 13:04 Height 5 ft 2 in Weight 212 lb 1.355 oz BMI 38.8 BP 118/82 Blood Pressure Location Lt brachial Position Sitting Pulse 101 H Pulse Source Pulse Oximeter Pulse Oximetry (%) 98 Oxygen Delivery Method Room Air Intake Visit Reasons: f/u Type 2 DM Intake Note: Patient present today for Type 2 Diabetes Mellitus Last Diabetic eye exam: Last exam was on 05/31/25 Last Podiatry Visit: Has upcoming appt in August. Random Glucose: 57 mg/dl @ 1:15 pm 86 mg/dl @ 1:35pm HgA1C: 7.4% 07/06/25 Traffic Engineer Required: Yes Traffic Engineer Language: It Application Development Manager Services: Traffic Engineer Present Traffic Engineer Name: Darron [id number] Information Interpreted: non-clinical & clinical Accompanied by: Self / Same As Patient Allergies tizanidine Allergy (Intermediate, Verified 08/08/25 13:09) Swelling Medication List - Last Reconciled 08/08/25 by Sally Madera PA-C albuterol sulfate 90 mcg/actuation (ProAir HFA) 2 puffs PO Q4-6H PRN bisacodyl (Dulcolax (bisacodyl)) 10 mg (2 x 5 mg) PO BEDTIME 2 days blood-glucose sensor (FreeStyle Donavon 3 Plus Sensor device) As directed change every 15 days blood-glucose,customer relationship specialist,cont (FreeStyle Donavon 3 [place]) As directed clotrimazole 1% (Athlete's Foot (clotrimazole)) 1 appl topical BID 4 weeks diclofenac potassium 50 mg PO BID duloxetine 60 mg PO DAILY duloxetine 30 mg PO DAILY fluticasone propionate 110 mcg/actuation (Flovent HFA) 1 puff PO BID gabapentin 600 mg PO BID hydroxyzine HCl 25 mg PO PRN ibuprofen 800 mg PO TID levothyroxine 100 mcg PO QAM metformin 500 mg PO BID methocarbamol 750 mg PO BID PRN 30 days naproxen 500 mg PO BID PRN 7 days naproxen 500 mg PO BID PRN omeprazole 20 mg PO DAILY oxycodone 10 mg PO Q8H PRN 3 days topiramate 25 mg PO DAILY HPI HPI f/u Type 2 DM: Details: Pt is a 55 y/o female who presents today for a follow up of her diabetes. She was recently seen by my colleague and has had recent diabetic education and saw a certified solid waste facility operator. Traffic Engineer: Darron [id number] Endo: dm- recent a1c 7.4. She was diagnosed this year February 2025. Her current medications metformin 500 mg bid and lantus 14 units nightly. bs today in the office is 57. She states she ate approximately at 21:00 Yesterday. She has mild lightheaded feeling. She was given a can of gingerale and a packet of crackers and has no sx after a minute. States feeling well. cgm- usage 98%, avg glucose 119, gmi 6.2%, variability 23%. very hyperglycemic 0%, hyperglycemic 2%, in range 97%, hypoglycemic 1%, very hypoglycemic 0% hypoglycemia - states rare despite low blood sugar today in office. She states she treats with glucose tabs/orange juice. Not on acei or statin. CV: bp today is 118/82. Not on statin. [facility] Medical History (Updated 08/08/25 @ 13:07 by Sally Madera PA-C) Elevated sed rate REBECCA positive Pain in joint involving multiple sites Neuropathy, peripheral Fibromyalgia Migraine Pre-diabetes Sleep apnea GERD (gastroesophageal reflux disease) Foot fracture Asthma Hypothyroidism Surgical History (Updated 08/08/25 @ 13:16 by BABAK Greer) History of knee surgery H/O umbilical hernia repair H/O shoulder surgery Hx of section Family History Mother Hypothyroidism HTN (hypertension) Diabetes Father Esophagus cancer Brother Asthma Social History Household Members: Family Housing: Apartment Alcohol intake: never Patient Tobacco Use Status: Current someday Tobacco user Tobacco use type: Cigarette Cigarettes Per Day: 20 Years Smoked: 25 Current occupational status: disabled Current occupation: rt hand Female Reproductive History Menstrual Age of Menarche: 8 Physical Exam Vital Signs: Last Vital Signs Pulse 101 H 08/08/25 13:04 BP 118/82 08/08/25 13:04 Pulse Ox 98 08/08/25 13:04 Oxygen Delivery Method Room Air 08/08/25 13:04 BMI result Body Mass Index 38.8 Const Orientation/consciousness: patient oriented x3 HEENT Ears: hearing grossly normal bilaterally Neck Thyroid: Thyroid normal Lymphatic: no lymphadenopathy noted Resp Auscultation: clear to auscultation bilaterally Cardio Rate: regular rate Rhythm: regular rhythm Heart sounds: S1 normal heart sound present and S2 normal heart sound present Skin General skin exam: no rashes or lesions noted Neuro General: patient oriented x3, gait normal and no focal motor deficits Results Reviewed Results Reviewed: Laboratory Last Values Glucose (Clinic) 57 mg/dL (60-115) L* 08/08/25 13:12 Laboratory Tests 02/28/25 03/17/25 07/06/25 14:07 15:16 10:59 Creatinine 0.68 Estimated GFR > 60 Glucose (Clinic) 183 H Hgb A1c (Clinic) Triglycerides 83 Cholesterol 154 LDL Cholesterol, Calc 92 HDL Cholesterol 46 07/06/25 11:11 Creatinine Estimated GFR Glucose (Clinic) Hgb A1c (Clinic) 7.4 H Triglycerides Cholesterol LDL Cholesterol, Calc HDL Cholesterol Assessment & Plan Assessment & Plan (1) Uncontrolled type 2 diabetes mellitus with hyperglycemia, with long-term current use of insulin: Code(s): E11.65 - Type 2 diabetes mellitus with hyperglycemia; Z79.4 - meterman (current) use of insulin Category: Medical Plan: labs ordered today to confirm t2dm we will d/c lantus will start trulicity 0.75 mg weekly. we discussed risks and benefits and adverse effects such as n/v/d/c, gastroparesis, increased risk of pancreatitis. She will let me know if abdominal pain or side effects. denies fam hx of endocrine cancers. no hx of pancreatitis. continue metformin 500 mg bid. reviewed rule of 15s at length bs in office on leaving was 85 return in 1-2 months Orders: Orders C Peptide Today E11.65 - Type 2 diabetes mellitus with hyperglycemia, Z79.4 - meterman (current) use of insulin Islet Cell Antibody Scrn/Titer Today E11.65 - Type 2 diabetes mellitus with hyperglycemia, Z79.4 - care home (current) use of insulin Glutamic acid decarboxylase Ab Today E11.65 - Type 2 diabetes mellitus with hyperglycemia, Z79.4 - care home (current) use of insulin Medications: New dulaglutide (Trulicity) 0.75 mg (0.5 mL) subcut QWEEK 2 mL 2RF Coding Level of Care Code Est Pt Level 4 (57975) Complex EM visit Add On G2211 Diagnoses Uncontrolled type 2 diabetes mellitus with hyperglycemia, with long-term current use of insulin E11.65; Z79.4
[2025-08-08 13:04] VITALS: BP 118/82; PULSE 101; O2SAT 98; BMI 38.8
[2025-08-08 13:15] LABS: Glucose, Whole Blood 57 mg/dL (60-115)
[2025-08-08 13:39] LABS: Glucose, Whole Blood 86 mg/dL (60-115)
--- OUTSIDE RECORDS SUMMARY | 2025-08-08 15:08 | XMS_ITS | Encounter Summary ---
Author Organization [employer] Address [address] [facility] [address] [place] [address] Care Team Providers Care Rfid Strategist Name Role Phone Kyra Lopez Primary Care Provider [phone] Reason for Visit * Reason Onset Date Comments requesting a call back 09/17/2022 Encounter Details Date Type Department Care Team ([facility] Contact Info) Description 09/17/[address] [facility] MED[facility]INE [address] [place] [address] Kyra Lopez FNP [address] [place] [address] requesting a call back Social History Tobacco [...] voice message left Please contact pt at [phone] documented in this encounter Plan of Treatment Not on file documented as of this encounter Visit Diagnoses Not on filedocumented in this encounter Care Teams Rfid Strategist Relationship Specialty Start Date End Date Kyra Lopez FNP [address] [place] [id number] PCP - General Family Medicine 05/29/22 documented as of this encounter
--- OUTSIDE RECORDS SUMMARY | 2025-08-08 15:08 | XMS_ITS | Clinical Summary ---
Author Organization [address] [facility] Address [address] [place] [address] Phone Care Team Providers Care Improvement Analyst Name Role Phone Unavailable Primary Care Provider Unavailabl e Social History Tobacco Use Types Packs/Day Years Used Date Smoking Tobacco: Never Assessed Comments Unknown Sex and Gender Information Value Date Recorded Sex Assigned at Not on file Legal Sex Female 11:56 AM EDT Gender Identity Not on file Sexual Orientation Not on file Plan of Treatment Upcoming Encounters Date Type Department Care Team ([facility] Contact Info) Description 11/03/2025 10:00 AM EST Office Visit Orthopedic Surgery [place] [id number] [address] Missael Valderrama DPM [address] [address] Health Maintenance Due Date Last Done Comments [...] Group ID:ICO Type:Not on file Address: [address] [place] [address]
--- OUTSIDE RECORDS SUMMARY | 2025-08-08 15:08 | XMS_ITS | Encounter Summary ---
Author Organization [employer] Address [address] [facility] [address] [place] [address] Care Team Providers Care Vest Busheler Name Role Phone Kyra Lopez Primary Care Provider [phone] Reason for Visit * Reason Onset Date Comments Med Refill 11/18/2024 Encounter Details Date Type Department Care Team ([facility] st Contact Info) Description 11/18/2024 Refill [facility] MED[facility]INE [address] [facility] [place] [address] Kyra Lopez FNP [address] [place] [address] Mild intermittent asthma without complication; Fibromyalgia; Chronic [...] OK for tele if needed. Sending to [facility]/team nurses for outreach. Thanks! * Telephone [...] 25 MG tablet To be sent to: [facility]/pharmacy #[id number] - [place], [place] - [address] [place] [address] documented in this encounter Plan of Treatment Not on file documented as of this encounter Visit Diagnoses Diagnosis Mild intermittent asthma without complication Fibromyalgia Unspecified myalgia and myositis Chronic midline low back pain with bilateral sciatica documented in this encounter Additional Health Concerns Assessment Noted Time PHQ-9 Depression Total Score: 23 023 9:35 AM EST documented as of this encounter Care Teams Vest Busheler Relationship Specialty Start Date End Date Kyra Lopez FNP [address] [place] [address] PCP - General Family Medicine 05/29/22 documented as of this encounter
--- OUTSIDE RECORDS SUMMARY | 2025-08-08 15:08 | XMS_ITS | Encounter Summary ---
Author Organization [employer] Address [address] [facility] [address] [place] [address] Care Team Providers Care Ocular Care Aide Name Role Phone HaleyKyra sargent CHAVO Primary Care Provider [phone] Encounter Details Date Type Department Care Team ([facility] Contact Info) Description 08/14/2023 Abstract [facility] MED[facility]INE [address] [place], [place] [id number] Kimberly To Social History Tobacco Use Types [...] documented as of this encounter Care Teams Ocular Care Aide Relationship Specialty Start Date End Date Kyra Lopez FNP [address] [place] [address] PCP - General Family Medicine 05/29/22 documented as of this encounter
--- OUTSIDE RECORDS SUMMARY | 2025-08-08 15:08 | XMS_ITS | Encounter Summary ---
Author Organization [employer] Address [address] [facility] [address] [place] [address] Care Team Providers Care Laborer Adjustable Steel Joist Name Role Phone Kyra Lopez Primary Care Provider [phone] Reason for Visit * Reason Comments Med Refill Encounter Details Date Type Department Care Team ([facility] st Contact Info) Description 09/26/2022 Refill [facility] [address] [place] [address] Jocelyn Morse MD [address] [place] [address] Chronic midline low back pain with bilateral [...] sciatica documented in this encounter Care Teams Laborer Adjustable Steel Joist Relationship Specialty Start Date End Date Kyra Lopez FNP [address] [place] [address] PCP - General Family Medicine 05/29/22 documented as of this encounter
--- OUTSIDE RECORDS SUMMARY | 2025-08-08 15:08 | XMS_ITS | Clinical Summary ---
Author Organization [employer] Address [address] [facility] [address] [place] [address] Care Team Providers Care Front Desk Clerk Name Role Phone HaleyKyra sargent CHAVO [...] Active DULoxetine (Cymbalta) [address] capsuleIndications :Fibromyalgia,Cafeteria Food Server benitez midline low back pain with bilateral [...] Hx of thyroid CA w/ radioactive iodione [id number] in [place], no documentation available for review Repeat thyroid US ordered 12/02/23 Healthcare maintenance 12/01/2023 Overview (12/01/2023): Optometry: [facility] November 2022 Dental: [facility] Dental Colonoscopy: 09/10/2021. Repeat in 5 years due to polyps (2025) Pap: 06/18/21 NILM HPV Neg w/ Dr. Macias ([facility] SET UP [employer]) Mammo: 07/10/22 BIRADS 2 REBECCA positive 12/01/2023 Overview (12/01/2023): Jul 2023: Low positive REBECCA with titer 1:80. Referral to Rheum sent. Eval in Aug 2023. Assessment & Plan (12/02/2023 4:52 PM EST): Per Consult Note: 10/15/23: [facility] Rheum - FLORA Boyce. Last seen 09/08/23, [...] herniation 08/10/2023 Overview (06/05/2025): -Specialists: following with [facility] Pain Management, [facility] Spine [facility], and PT Left L4-L5 parasagittal interlaminar LANIE on 11/06/[address] Hager (30% pain relief). 04/02/25: MRI lumbar spine - 1. Central/left paracentral disc protrusion at L4-L5 abuts the traversing L5 nerve root on the left. 2. Severe spinal canal stenosis at L4- L5. Assessment & Plan (06/05/2025 7:53 PM EDT): Consult with [facility] Pain Management and [facility] since last appt. Compression in the lateral recess on the left L5 nerve 2/2 large herniated disc bulge. Discuss surgery after A1c improvement. Medications: continues with gabapentin 600mg BID with some noted relief Goal: improve A1c in order to be candidate for surgery consult. Assessment & Plan (02/28/2025 2:03 PM EDT): 03/07/23: [facility] Pain Management - reviewed MRI. MRI showed large paracentral disc herniation at L4-5 with foraminal extension. There is ligament hypertrophy as well. Referral was placed to Neurosurgeon for further eval and surgical discectomy as did not believe that minimally invasive lumbar decompression would provide much pain relief. Referred to [facility] Spine [facility], but surgery eval on hold pending faxed results of lumbar MRI from [place]. Pending. Reports has not yet had consult. Medications: continues with gabapentin 600mg BID with some noted relief Referral to re-establish with [facility] Pain Management Assessment & Plan (12/02/2023 4:53 PM EST): 03/07/23: [facility] Pain Management - reviewed MRI. MRI showed large paracentral disc herniation at L4-5 with foraminal extension. There is ligament hypertrophy as well. Referral was placed to Neurosurgeon for further eval and surgical discectomy as did not believe that minimally invasive lumbar decompression would provide much pain relief. Referred to [facility] Spine [facility], but surgery eval on hold pending faxed results of lumbar MRI from [place]. Pending. Medications: Pt reports methocarbamol was not overly effective, continues with gabapentin 600mg BID with some noted relief Assessment & Plan (08/10/2023 11:14 AM EST): 03/07/23: [facility] Pain Management - reviewed MRI. MRI showed [...] as pharmacomtherapy, [facility] smoking cessation group, and [facility] pharmacy smoking cessation clinic Assessment & Plan (08/10/2023 11:21 AM EST): -Smoking 1 ppd -Encourage smoking cessation resources such as pharmacomtherapy, [facility] smoking cessation group, and [facility] pharmacy smoking cessation clinic Mild intermittent [...] December 2024 during hospitalization - Established with [facility] Endo - Continues with current med [...] during hospitalization - Plan to establish with [facility] - Continues with current med regimen [...] Hx of thyroid CA w/ radioactive iodione [id number] in [place] of the thyroid Astigmatism [...] (02/12/2023 8:26 AM EDT): Encouraged to call [facility] Pain Management to confirm imaging has been [...] (09/01/2022 3:24 PM EST): -Previously following with tire center manager and PT -Reports previous lumbar injections -Referral to Pain Management -Encouraged to continue with PT exercises at home, light stretching, rest, topical application of heat/cold as tolerated. -Encouraged [facility] Acupuncture clinic Encounters * This document contains information received from the source organization and may not represent a complete record from that organization. Date Type Department Care Team Description 06/24/2025 Refill [facility] MEDICINE [address] [place] [address] Kyra Lopez, CHAVO Fibromyalgia; Chronic midline low back pain with bilateral sciatica; Muscle spasm; Type 2 diabetes mellitus without complication, with long-term current use of insulin ([facility]) 06/20/2025 Refill [facility] MED & PEDS [address] [place] [address] Kyra Lopez FNP Anxiety 06/03/2025 1:45 PM EDT Office Visit [facility] MED & PEDS [address] [place] [address] Kyra Lopez FNP Obstructive sleep apnea syndrome (Primary Dx); Type 2 diabetes mellitus without complication, with long-term current use of insulin ([facility]); Onychauxis; Numbness and tingling of both feet; Dietary counseling; Exercise counseling; Lumbar disc herniation 06/03/2025 Travel 06/02/2025 1:00 PM EDT Office Visit [facility] OPTOMETRY [address] [place] [address] Nandini Zelaya, OD Type 2 diabetes mellitus without ophthalmic manifestations ([facility]) (Primary Dx); Dry eyes; Vitreoretinal degeneration of right eye; Hyperopia of both eyes with astigmatism and presbyopia 06/02/2025 Telephone [facility] MED & PEDS [address] [place] [address] Kyra Lopez FNP chart prep 06/02/2025 Travel 05/31/2025 Refill [facility] MED & PEDS [address] [place] [address] Kyra Lopez FNP Fibromyalgia from Last 3 [...] ymarcos COPD Father Philippe Esophageal cancer Father [place] Arthritis Mother Wandy L Olivas Cataracts, glaucoma [...] Associated Diagnosis Comments GLUCOSE, WHOLE BLOOD Routine 08/08/2025 1:35 PM EST GLUCOSE, WHOLE BLOOD Routine 08/08/2025 1:12 PM EST GLUCOSE, WHOLE BLOOD Routine 07/06/2025 10:59 AM EDT POCT GLUCOSE Routine 06/03/2025 1:39 PM EDT Type 2 diabetes mellitus without complication, with long-term current use of insulin ([facility]) HEMOGLOBIN A1C Routine 03/17/2025 3:16 PM EDT [...] Recently Relevant to Health Maintenance Results * Glucose, Whole Blood (08/08/2025 1:35 PM EST) Only the most recent of3 resultswithin the time period is included. Glucose, Whole Blood 86 60 - 115 mg/dL [facility] Comment:METER #: [id number] Testing performed in the Endocrinology Department [address] , [address], [facility]. 08/08/2025 1:35 PM EST 08/08/2025 1:39 PM EST Generic External Data Provider LAB BLOOD ORDERAB LES Final Result [facility] [address] [place] [address] [phone] * POCT Glucose (06/03/2025 1:39 PM EDT) Glucose Blood, POC 161 60 - 200 mg/dL QC Media Lot # [id number] Lot# Expiration Date [id number] Blood Capillary blood specimen / Unknown 06/03/2025 1:39 PM EDT Kyra Lopez BRIM FLEXER POINT OF CARE TEST ENTER/EDIT ORDERABLES Final Result * (ABNORMAL) Hemoglobin A1c (03/17/2025 3:16 PM EDT) Hemoglobin A1c 10.9(H) <6.0 % [facility] Comment:Hemoglobin A1C Refer ence Range Adults: 4.8 - 6.0 % Non diabetic: < 6.0 % Goal: < 7.0 %Additional Action Suggested: > 8.0 %Note: Hemoglobin A1c results are invalid for patients with abnormal amounts of HbF. Blood transfusions may impact the HbA1c concentration in the patient sample. Estimated Average Glucose 266 mg/dL [facility] Comment:eAG = Estimated ave rage glucose which is %A1C expressed asaverage glucose, using the formula of the P0M-YaotoziFoqiwnk Glucose study (ADAG), Diabetes Care, Vol.31,#8,Apr. 2007 03/17/2025 3:16 PM EDT 03/17/2025 3:16 PM EDT Generic External Data Provider LAB BLOOD ORDERAB LES Final Result Performing Organization Address [facility]/ZIP Co de Phone Number [facility] [address] [place] [address] [phone] * Hepatitis C Viral RNA, Quantitative, Real-Time PCR (02/28/2025 2:07 PM EDT) Hepatitis C Viral Load <15 NOT DETECTED NOT DETECTED IU/mL [facility] HCV Log PCR <1.18 NOT DETECTED NOT DETECTED Log IU/mL [facility] Comment:For additional infor maximiliano, please refer tohttp://education.[employer]/faq/WAS83q3(This link is being provided for informational/educational purposes only.)THIS TEST WAS PERFORMED AT:[facility] [place] [id number] REYNA MD Blood 02/28/2025 2:07 PM EDT 02/28/2025 5:34 PM EDT Kyra TONY LAB BLOOD ORDERABLES Final Res ult [facility] [address] [place] [address] [phone] * HIV-1/2 Antigen and Antibodies, Fourth Generation, with Reflexes (02/28/2025 2:07 PM EDT) Pathologist [facility] HIV AB/AG Nonreactive Nonreactive [facility] Comment:HIV-1 p24 Ag and/or HIV-1/HIV-2 Ab not detected.A test result that is nonreactive does not exclude thepossibility of exposure to or infection with HIV-1 and/orHIV-2. Nonreactive results in this assay for individualswith prior exposure to HIV-1 and/or HIV-2 may be due toantigen and antibody levels that are below the limit ofdetection of this assay.The Ve[employer]ity[employer] HIV Ag/Ab Combo assay result andsupplemental assay results should be interpreted inconjunction with the patient's clinical presentation,history and other laboratory results. If the results areinconsistent with clinical evidence, additional testing issuggested to confirm the result. Blood Venous blood specimen / Unknown 02/28/2025 2:07 PM EDT 02/28/2025 5:34 PM EDT us Kyra Phalen BRIM FLEXER LAB BLOOD ORDERABLES Final Res ult Performing Organization Address [facility] Co de Phone Number [facility] [address] [place] [address] [phone] * Lipid Panel, Standard (02/28/2025 2:07 PM EDT) Triglycerides 83 <150 mg/dL [facility] Comment:Desirable Triglyceri de: less than 150 mg/dLBorderline High Triglyceride 150-199 mg/dLHigh Triglyceride: 200-499 mg/dLVery High Triglyceride: greater than or equal to 5OO mg/dL Cholesterol 154 <200 mg/dL [facility] Comment:Desirable Cholestero l: less than 200 mg/dLBorderline High Cholesterol: 200-239 mg/dLHigh Cholesterol: greater than 239 mg/dL LDL Cholesterol Calculated 92 <100 mg/dL [facility] Comment:Desirable LDL: less than 100 mg/dLNear Optimal/Above Optimal LDL: 110- 129 mg/dLBorderline High LDL: 130-159 mg/dLHigh LDL: 160-189 mg/dLVery High LDL: greater than or equal to 190 mg/dL HDL Cholesterol 46 >40 mg/dL [facility] Comment:Desirable HDL: great er than 40 mg/dL Note: This HDL assay may give artificially low results in patients with liver disease. Blood Venous blood specimen / Unknown 02/28/2025 2:07 PM EDT 02/28/2025 5:34 PM EDT Kyra Lopez BRIM FLEXER LAB BLOOD ORDERABLES Final Res ult Performing Organization Address City/[facility]/ZIP Co de Phone Number [facility] [address] [place] [address] [phone] * Mammography (07/10/2022) Mammogram 07/10/2022 Anatomical [...] Detected [facility] Comment: Methodology: Occasional Caregiver-Mediated Amplification This assay detects E6/E7 viral messenger RNA (mRNA) from 14 high-risk HPV types (16,18,31,33,35,39,45,51,52,56,58,59,66,68). The analytical performance characteristics of this assay have been determined by [employer]. The modifications have not been cleared or approved by the FDA. This assay has been validated pursuant to the CLIA regulations and is used for clinical purposes. For additional information, please refer to http://education.[employer]/faq/FGS132y7 (This link if provided for information/ educational purposes only.) THIS TEST WAS PERFORMED AT: [facility] [address] [place] [address] [address],[place] [phone] KAREL REYNA MD 06/18/2021 3:44 PM EDT Hector Macias MD HISTORICAL/NON ORDERABLE LABS Fi nal Result [facility] [address] * Hm Pap Smear (06/18/2021 12:00 AM EDT) Deanna Provider HEALTH MAINTENANCE Final Result from Last 3 Months or Most Recently Relevant to Health Maintenance Insurance [facility] ONE CARE < 65 [facility] STANDARD DENT[facility] STAND ADULT DENTAL - [facility] Care Teams Front Desk Clerk Relationship Specialty Start Date End Date Kyra Lopez FNP [address] [place] [phone] PCP - General Family Medicine 05/29/22
--- OUTSIDE RECORDS SUMMARY | 2025-08-08 15:08 | XMS_ITS | Encounter Summary ---
Author Organization [employer] Address [address] [facility] [address] [place] [address] Care Team Providers Care Brain Picker Name Role Phone Kyra Lopez Primary Care Provider [phone] Reason for Visit * Reason Comments Med Refill Encounter Details Date Type Department Care Team ([facility] Contact Info) Description 12/01/2023 Refill [facility] MED & PEDS [address] [place] [address] Kyra Lopez FNP [address] [place] [address] Anxiety Social History Tobacco Use Types Packs/Day [...] documented as of this encounter Care Teams Brain Picker Relationship Specialty Start Date End Date Kyra Lopez FNP [address] [place] [phone] PCP - General Family Medicine 05/29/22 documented as of this encounter
--- OUTSIDE RECORDS SUMMARY | 2025-08-08 15:08 | XMS_ITS | Encounter Summary ---
Author Organization [employer] Address [address] [facility] [address] [place] [address] Care Team Providers Care Ticketer Name Role Phone HaleyKyra sargent CHAVO Primary Care Provider [phone] Encounter Details Date Type Department Care Team ([facility] st Contact Info) Description 06/23/2023 Orders Only [facility] MEDICINE [address] [place] [address] Kimberly To Social History Tobacco Use Types [...] documented as of this encounter Care Teams Ticketer Relationship Specialty Start Date End Date Kyra Lopez FNP [address] [place] [phone] PCP - General Family Medicine 05/29/22 documented as of this encounter
== END 2025-08-08 13:44 | disposition home or self-care (01) ==
LOC: HO.ENCR 13:01
PROVIDERS: PCP Registered Nurse; Visit Provider Physician Assistant
DX: E11.65 Type 2 diabetes mellitus with hyperglycemia (principal); Z79.4 Long term (current) use of insulin

== ENCOUNTER → 2025-08-08 13:01 | Outpatient (BNVA) | payer OTHER, SELFPAY | PROVIDERS: PCP Registered Nurse; Visit Provider Physician Assistant | DX: E11.65 Type 2 diabetes mellitus with hyperglycemia (principal); Z79.4 Long term (current) use of insulin; Z79.84 Long term (current) use of oral hypoglycemic drugs | CPT/HCPCS: 82947; 99212 ==